=== PATIENT | male | born 1940 | race African-American/Black ===

== ENCOUNTER 2021-03-04 21:19 | Emergency (ER) | payer MEDICARE, MEDICAID, SELFPAY ==
[2021-03-04 21:39] LABS: Glucose, Whole Blood 125 mg/dL (60-115)
[2021-03-04 21:43] VITALS: BP 130/82; BP 136/62; PULSE 76; PULSE 84; RESP 18; TEMP 37.1; O2SAT 99; BMI 18.3
[2021-03-04 21:47] VITALS: BP 136/62; PULSE 76; RESP 18; TEMP 37.1; O2SAT 99
--- NOTE | 2021-03-04 22:01 | ED.GENADULT ---
HPI - General Adult General Chief complaint: General Medical Stated complaint: AMS Time Seen by Provider: 03/04/21 21:54 Source: family History of Present Illness HPI narrative: Patient brought by [facility] for wandering on the street without a shirt on never called EMS stating that patient had Alzheimer's disease and 's leave him alone a lot after arrival patient's son is here to take the patient home no other active complaints Review of Systems Review of Systems: Yes Unobtainable due to mental status PMFSH Social History Social History Advance Directives: No Advance Directives Information Provided: No Physical Exam Vital Signs: Vital Signs: Last Vital Signs Temp 98.8 F 03/04/21 21:47 Pulse 76 03/04/21 21:47 Resp 18 03/04/21 21:47 BP 136/62 03/04/21 21:47 Pulse Ox 99 03/04/21 21:47 Body Mass Index 18.3 Appearance: Alert. Oriented X1. No acute distress. Dementia Eyes: PERRLA, No Nystagmus ENT: Pharynx normal. Oral Mucosa moist Neck: Normal inspection. Neck supple. CVS: Normal heart rate and rhythm. Pulses normal. Respiratory: No respiratory distress. Equal air entry bilateral, no wheezing/rales/rhonchi Abdomen: Soft and nontender. Bowel sounds are present, no mass palpable, no CVA tenderness Skin: Skin warm and dry. Normal skin color. Normal skin turgor. Extremities: No lower extremity edema. No calf tenderness Neuro: Oriented X 1. No motor deficit. No sensory deficit.No cerebellar signs , cranial nerves II-XII intact Medical Decision Making MDM Narrative Medical decision making narrative: Patient has significant dementia family at bedside to take the patient home Lab Data Labs: Lab Results 03/04/21 Range/Units 21:35 POC Glucose 125 H (60-115) mg/dL Discharge Plan Discharge Clinical Impression: Dementia Qualifiers: Dementia type: Alzheimer's Alzheimer's disease onset: late-onset Dementia behavioral disturbance: with behavioral disturbance Qualified Code(s): G30.1 - Alzheimer's disease with late onset Patient Disposition: Home, Self-Care Instructions: Dementia (ED) Additional Instructions: Keep patient inside the house to avoid wandering Follow-up with your PCP if any concerns Interventions: ED Discharge Assessment Last Done: 03/04/21 22:02 Discharge Date/Time: 03/04/21 22:07
--- NOTE | 2021-03-04 22:01 | PC.NURSE ---
Pt alert and confused, hx of Alzeheimer's. Family at bedside and stating this is his baseline mental status. Pt denies pain. No IV in place, Vitals stable. Pt to be discharged home with family.
== END 2021-03-04 22:07 | disposition home or self-care (01) ==
LOC: HO.ED 22:06
PROVIDERS: Emergency Provider Internal Medicine
DX: G30.1 Alzheimer's disease with late onset (principal); Z79.899 Other long term (current) drug therapy
CPT/HCPCS: 82947; 99282; 99284

== ENCOUNTER 2023-02-05 10:21 | Emergency (ER) | payer MEDICARE, MEDICAID, SELFPAY ==
--- NOTE | ~2023-02-05 | CT_ITS ---
EXAMINATION: CT HEAD WITHOUT CONTRAST CT CERVICAL SPINE WITHOUT CONTRAST CLINICAL INFORMATION: Unwitnessed fall. COMPARISON: None available. TECHNIQUE: Contiguous axial imaging was performed from the skull base to vertex without intravenous administration of contrast. Contiguous axial imaging was performed from the upper chest through the skull base without intravenous administration of contrast. Coronal and sagittal reformats were obtained at the acquisition workstation. This CT examination was performed using dose optimization techniques as appropriate, variously including the following: *Automated exposure control. *Adjustment of mA and/or kV according to patient size (this includes techniques or standardized protocols for targeted exams where dose is matched to indication/reason for exam; i.e. extremities or head). *Use of iterative reconstruction technique. DLP: 908 mGy-cm FINDINGS: Head: There is no evidence of acute intracranial hemorrhage or edematous territorial infarction. Britt-white matter differentiation is preserved. Scattered and partially confluent hypoattenuation in the periventricular and deep white matter are consistent with moderate microangiopathy. Proportional prominence of the ventricles and sulcal spaces without evidence of obstructive hydrocephalus. No abnormal mass effect or midline shift. No extra-axial fluid collections. No acute soft tissue or osseous abnormalities. Moderate polypoid mucosal thickening of the paranasal sinuses. The mastoid air cells and middle ear cavities are clear. Bilateral lens extractions. Cervical Spine: The atlantooccipital and atlantoaxial articulations remain well aligned. Straightening of the normal cervical lordosis. Otherwise, there is anatomic alignment of the vertebral bodies and posterior elements. No evidence of acute fracture or subluxation. The vertebral body heights are maintained. Advanced degenerative disc disease from C2-C4 and at C5-C6. Moderate degenerative disc disease at all additional cervical levels. Facet and uncovertebral joint arthropathy leads to osseous encroachment on the neural foramina from C3-C6. There is no prevertebral soft tissue swelling. The thyroid gland and remaining cervical soft tissues are within normal limits. Calcified pleural plaques in the visualized lung apices as abc and with prior specimens exposure. Mild paraseptal emphysema in the visualized lung apices. Otherwise, the lung apices demonstrate no abnormalities. CT/CT cervical spine wo IV con IMPRESSION: 1. No evidence of acute intracranial hemorrhage or edematous territorial infarction. 2. Moderate underlying microangiopathy and generalized cerebral volume loss. 3. No evidence of acute fracture or traumatic subluxation of the cervical spine. 4. Moderate multilevel degenerative spondyloarthropathy of the cervical spine.
[2023-02-05 10:27] VITALS: BP 112/68; PULSE 80; O2SAT 98
[2023-02-05 10:36] VITALS: BP 110/65; PULSE 58; RESP 19; TEMP 37.1; O2SAT 98; BMI 18.8
--- NOTE | 2023-02-05 10:42 | ECG_ITS ---
Test Reason : weakness Blood Pressure : / mmHG Vent. Rate : 061 BPM Atrial Rate : 000 BPM P-R Int : 000 ms QRS Dur : 102 ms QT Int : 456 ms P-R-T Axes : 000 -33 045 degrees QTc Int : 459 ms Atrial fibrillation with premature ventricular or aberrantly conducted complexes Left axis deviation Low voltage QRS Abnormal ECG No previous ECGs available Referred By: Monik Lyons Electronically Signed By:BOUBACAR WHITE
[2023-02-05 11:48] LABS: MANUAL DIFF FLAG NO
[2023-02-05 11:50] LABS: Appearance Urine Clear; Color Urine Dark Yellow; Glucose Urine UA Negative (Negative); Leukocyte Esterase Urine Negative (Negative); Nitrite Urine Negative (Negative); PH 5.5 (5.0-9.0); Specific Gravity - Urine 1.025 (1.005-1.025); Urine Blood Negative (Negative); Urine Ketones Negative (Negative); Urine Protein Negative (Neg-Trace)
[2023-02-05 11:55] LABS: Basophils Absolute Auto 0.1 X10*3/uL (0.0-0.2); Basophils Percent Auto 0.8 % (0-2); Eosinophils Absolute Auto 0.9 X10*3/uL (0.0-0.4); Eosinophils Percent Auto 15.6 % (0-4); Hematocrit 40.1 % (42.0-52.0); Hemoglobin 13.7 g/dl (14.0-18.0); Imm Gran Abs Auto 0.02 X10*3/uL (0.00-0.03); Imm Gran Pct Auto 0.3 % (0.0-0.4); Lymphocytes Percent Auto 17.4 % (20-40); Mean Corpuscular HGB Conc 34.2 g/dl (31.0-36.0); Mean Corpuscular Hemoglobin 30.6 pg (27.0-33.0); Mean Corpuscular Volume 89.5 fL (80.0-98.0); Mean Platelet Volume 10.9 fL (9.4-12.4); Monocytes Absolute Auto 0.3 X10*3/uL (0.1-1.2); Monocytes Percent Auto 4.7 % (2-11); Neutrophils Absolute Auto 3.6 x10*3/uL (2.0-8.3); Neutrophils Percent Auto 61.2 % (45-73); Platelet Count 119 X10*3/uL (160-400); Red Blood Count 4.48 X10*6/uL (4.60-5.80)
[2023-02-05 12:04] LABS: Alanine Aminotransferase 9 U/L (0-40); Albumin Level 3.6 g/dL (3.5-5.0); Alkaline Phosphatase 67 U/L (39-117); Anion Gap 8 (12-20); Aspartate Amino Transferase 19 U/L (5-37); Bilirubin Direct 0.3 mg/dL (0.0-0.5); Bilirubin Total 0.8 mg/dL (0.0-1.0); Blood Urea Nitrogen 22 mg/dL (9-16); Calcium 9.3 mg/dL (8.4-10.2); Carbon Dioxide 29 mmol/L (22-29); Chloride 110 mmol/L (96-108); Creatinine Clr Calc Pharmacy 60.9; Estimated Glomerular Filt Rate > 60; Glucose Random 86 mg/dL (60-115); Magnesium 1.9 mg/dL (1.6-2.6); Potassium 3.9 mmol/L (3.3-5.1); Sodium 143 mmol/L (135-145); Total Protein 6.3 g/dL (6.5-8.0)
[2023-02-05 12:08] VITALS: BP 107/51; PULSE 52; RESP 16; TEMP 36.5; O2SAT 97
[2023-02-05 12:11] LABS: Troponin-I High Sensitivity 13.3 ng/L (<3.5-35.0)
[2023-02-05] MEDS: Acetaminophen 325 MG TABLET 650 MG PO (12:26)
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
[2023-02-05 14:35] VITALS: BP 108/61; PULSE 60; RESP 18; O2SAT 95
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
== END 2023-02-05 15:17 | disposition home or self-care (01) ==
PROVIDERS: Physician Assistant; Emergency Provider Emergency Medicine
DX: S41.112A Laceration without foreign body of left upper arm, initial encounter (principal); W22.03XA Walked into furniture, initial encounter; Y93.89 Activity, other specified; Y92.032 Bedroom in apartment as the place of occurrence of the external cause; Y99.9 Unspecified external cause status; F03.90 Unspecified dementia, unspecified severity, without behavioral disturbance, psychotic disturbance, mood disturbance, and anxiety; Z79.01 Long term (current) use of anticoagulants
CPT/HCPCS: 36415; 70450; 72125; 80048; 80076; 81003; 82550; 83735; 84484; 85025; 93005; 99284

== ENCOUNTER 2023-08-19 23:30 | Emergency (ER) | payer MEDICARE, MEDICAID, SELFPAY ==
--- NOTE | ~2023-08-19 | CT_ITS ---
EXAMINATION: CT HEAD WITHOUT CONTRAST CT CERVICAL SPINE WITHOUT CONTRAST CLINICAL INFORMATION: Fall. Pain. COMPARISON: 02/05/2023 TECHNIQUE: Contiguous axial imaging was performed through the head and cervical spine without intravenous administration of contrast. Sagittal and coronal reformatted images also obtained. This CT examination was performed using dose optimization techniques as appropriate, variously including the following: *Automated exposure control *Adjustment of mA and/or kV according to patient size (this includes techniques or standardized protocols for targeted exams where dose is matched to indication/reason for exam; i.e. extremities or head) *Use of iterative reconstruction technique DLP: 1221 mGy-cm FINDINGS: There is cerebral volume loss with prominence of the lateral and the third ventricles. The cortical sulci are widened appropriately. The fourth ventricle and basal cisterns are normally outlined. There is moderate bilateral periventricular and central white matter diminished attenuation. There is no acute territorial defect, hemorrhage or midline shift. Calvarium: Intact. Maxillofacial sinuses and mastoids: There are bilateral maxillary and ethmoid sinus opacities. The mastoids are clear. Cervical spine: The alignment is within normal limits. There is diffuse wcbk-is-lqzrytub cervical disc degenerative change with loss of disc space, endplate change and posterior osteophytes associated with diffuse mild to moderate facet osteoarthritic hypertrophic change with multilevel gijc-bx-rvdrjadf spinal canal and neuroforaminal narrowing. The bony structures are osteopenic. There is no evidence for acute fracture. Soft tissues are unremarkable. The visualized upper lung juarez are clear. CT/CT cervical spine wo IV con IMPRESSION: 1. No evidence for acute intracranial abnormality. Moderate bilateral periventricular and central white matter diminished attenuation consistent with chronic microangiopathic changes. 2. Bilateral maxillary and ethmoid sinus disease. 3. No evidence for acute cervical spine traumatic injury. Diffuse hxcz-fe-hemaannl cervical spondylosis and facet osteoarthritic changes.
--- NOTE | ~2023-08-19 | CT_ITS ---
EXAMINATION: CT HEAD WITHOUT CONTRAST CT CERVICAL SPINE WITHOUT CONTRAST CLINICAL INFORMATION: Fall. Pain. COMPARISON: 02/05/2023 TECHNIQUE: Contiguous axial imaging was performed through the head and cervical spine without intravenous administration of contrast. Sagittal and coronal reformatted images also obtained. This CT examination was performed using dose optimization techniques as appropriate, variously including the following: *Automated exposure control *Adjustment of mA and/or kV according to patient size (this includes techniques or standardized protocols for targeted exams where dose is matched to indication/reason for exam; i.e. extremities or head) *Use of iterative reconstruction technique DLP: 1221 mGy-cm FINDINGS: There is cerebral volume loss with prominence of the lateral and the third ventricles. The cortical sulci are widened appropriately. The fourth ventricle and basal cisterns are normally outlined. There is moderate bilateral periventricular and central white matter diminished attenuation. There is no acute territorial defect, hemorrhage or midline shift. Calvarium: Intact. Maxillofacial sinuses and mastoids: There are bilateral maxillary and ethmoid sinus opacities. The mastoids are clear. Cervical spine: The alignment is within normal limits. There is diffuse xckq-eb-tnqstgxk cervical disc degenerative change with loss of disc space, endplate change and posterior osteophytes associated with diffuse mild to moderate facet osteoarthritic hypertrophic change with multilevel qheb-bd-kpexbotw spinal canal and neuroforaminal narrowing. The bony structures are osteopenic. There is no evidence for acute fracture. Soft tissues are unremarkable. The visualized upper lung juarez are clear. CT/CT head/brain wo IV con IMPRESSION: 1. No evidence for acute intracranial abnormality. Moderate bilateral periventricular and central white matter diminished attenuation consistent with chronic microangiopathic changes. 2. Bilateral maxillary and ethmoid sinus disease. 3. No evidence for acute cervical spine traumatic injury. Diffuse pdfe-qs-sxhdpicd cervical spondylosis and facet osteoarthritic changes.
[2023-08-20 00:02] VITALS: BP 128/73; PULSE 78; RESP 18; TEMP 36.7; O2SAT 97
[2023-08-20 00:16] VITALS: BP 153/59; PULSE 90; O2SAT 97; BMI 21.6
--- NOTE | 2023-08-20 00:38 | ED_ITS ---
HPI - Fall General Chief Complaint: Fall Stated Complaint: fall Time Seen by Provider: 08/20/23 00:38 Source: family and EMS Mode of arrival: EMS Limitations: no limitations History of Present Illness HPI Narrative: Patient history of AFib on Eliquis dementia with unsteady gait patient's just left the room for the coffee and when she came found him on the ground with face down patient was sitting on the bed found laceration on the top of the head Related Data Allergies Allergy/AdvReac Type Severity Reaction Status Date / Time No Known Allergies Allergy Verified 08/20/23 00:16 Review of Systems 2 Review of Systems: Yes all other systems are reviewed and are negative [facility] Past Medical History Medical History Anticoagulated Dementia Social History Social History Alcohol intake: former Patient Tobacco Use Status: Tobacco use Unknown Smoked in Last 30 Days: No Use of substances other than those prescribed or required for medical reasons: No Advance Directives: No Advance Directives Information Provided: Yes Physical Exam 2 Vital Signs: Vital Signs: Last Vital Signs Temp 98.0 F 08/20/23 00:02 Pulse 78 08/20/23 00:02 Resp 18 08/20/23 00:02 BP 128/73 08/20/23 00:02 Pulse Ox 97 08/20/23 00:02 O2 Del Method Room Air 08/20/23 00:02 BMI result Body Mass Index 21.6 Appearance: Alert. Demand No acute distress. Eyes: PERRLA, No Nystagmus ENT: Pharynx normal. Oral Mucosa moist elliptical laceration on the top of the skull Neck: Normal inspection. Neck supple. CVS: Normal heart rate and rhythm. Pulses normal. Respiratory: No respiratory distress. Equal air entry bilateral, no wheezing/rales/rhonchi Abdomen: Soft and nontender. Bowel sounds are present, no mass palpable, no CVA tenderness Skin: Skin warm and dry. Normal skin color. Normal skin turgor. Extremities: No lower extremity edema. Neuro: Alert dementia moving all 4 extremities. Procedures Laceration Laceration 1: Site: scalp Size (cm): 10 Description: linear Depth: simple, single layer Skin layer closed with: other (Hardy #10 ) Medical Decision Making Medical Decision Making [facility] Narrative: Patient has both mechanical fall labs are stable CT head and C-spine negative for acute laceration was stapled will discharge patient back to his house Differential Diagnosis Differential Diagnoses: The differential diagnosis associated with the presentation includes Scalp laceration/skull fracture/subdural hematoma/SAH Lab Data [facility] Lab Attestation statement: I reviewed the patient's lab results. 08/20/23 01:01 08/20/23 01:01 Labs: Lab Results 08/20/23 Range/Units 01:01 WBC 7.6 (4.8-10.8) X10*3/uL RBC 4.43 L (4.60-5.80) X10*6/uL Hgb 13.4 L (14.0-18.0) g/dl Hct 39.0 L (42.0-52.0) % MCV 88.0 (80.0-98.0) fL MCH 30.2 (27.0-33.0) pg MCHC 34.4 (31.0-36.0) g/dl RDW 13.5 (11.0-16.0) % Plt Count 166 D (160-400) X10*3/uL MPV 10.6 (9.4-12.4) fL Immature Gran % (Auto) 3.0 H (0.0-0.4) % Neut % (Auto) 76.1 H (45-73) % Lymph % (Auto) 9.6 L (20-40) % [place] % (Auto) 3.7 (2-11) % Eos % (Auto) 7.1 H (0-4) % Baso % (Auto) 0.5 (0-2) % Lymph # (Auto) 0.7 L (1.2-4.9) X10*3/uL [place] # (Auto) 0.3 (0.1-1.2) X10*3/uL Eos # (Auto) 0.5 H (0.0-0.4) X10*3/uL Baso # (Auto) 0.0 (0.0-0.2) X10*3/uL Abs Immat Gran (auto) 0.23 H (0.00-0.03) X10*3/uL Absolute Neuts (auto) 5.8 (2.0-8.3) x10*3/uL Absolute Nucleated RBC 0.000 (0.0-0.012) X10*3/uL Nucleated RBC % (auto) 0.0 (0.0-0.2) /100WBC PT 12.0 (11.1-13.3) SEC INR 1.0 (0.9-1.1) Sodium 142 (135-145) mmol/L Potassium 4.2 (3.3-5.1) mmol/L Chloride 107 (96-108) mmol/L Carbon Dioxide 27 (22-29) mmol/L Anion Gap 12 (12-20) BUN 22 H (9-16) mg/dL Creatinine 0.70 (0.5-1.4) mg/dL Estim Creat Clear Calc 67.8 Estimated GFR > 60 Random Glucose 106 (60-115) mg/dL Calcium 9.2 (8.4-10.2) mg/dL Total Bilirubin 0.6 (0.0-1.0) mg/dL AST 23 (5-37) U/L ALT 19 (0-40) U/L Alkaline Phosphatase 100 (39-117) U/L Total Protein 7.1 (6.5-8.0) g/dL Albumin 3.5 (3.5-5.0) g/dL Independent Interpretation I performed an independent interpretation of an: EKG and CT Scan Interpretation: Atrial fibrillation ventricular rate 78 beats per minute no acute ST-T changes no acute ischemia Radiology Impression Discussion of test interpretation with radiology: I have reviewed the radiologist's reading. Discharge Plan Discharge Clinical Impression: Laceration of scalp, Fall Patient Disposition: Home, Self-Care Instructions: Laceration (DC), Fall Prevention for Older Adults (ED) Additional Instructions: Local care as advised Staple removal in 7-10 days
--- NOTE | 2023-08-20 00:45 | ECG_ITS ---
Test Reason : FALL Blood Pressure : / mmHG Vent. Rate : 078 BPM Atrial Rate : 000 BPM P-R Int : 000 ms QRS Dur : 096 ms QT Int : 406 ms P-R-T Axes : 000 -53 036 degrees QTc Int : 462 ms Artifact in tracing Atrial fibrillation Low voltage QRS Abnormal ECG When compared with ECG of 05-FEB-2023 10:47, No significant change was found Referred By: Bj Tucker Electronically Signed By:INGRID MCCABE
[2023-08-20 01:05] LABS: Basophils Percent Auto 0.5 % (0-2); Eosinophils Absolute Auto 0.5 X10*3/uL (0.0-0.4); Eosinophils Percent Auto 7.1 % (0-4); Hemoglobin 13.4 g/dl (14.0-18.0); Imm Gran Abs Auto 0.23 X10*3/uL (0.00-0.03); Lymphocytes Absolute Auto 0.7 X10*3/uL (1.2-4.9); Lymphocytes Percent Auto 9.6 % (20-40); MANUAL DIFF FLAG NO; Mean Corpuscular HGB Conc 34.4 g/dl (31.0-36.0); Mean Corpuscular Hemoglobin 30.2 pg (27.0-33.0); Mean Platelet Volume 10.6 fL (9.4-12.4); Monocytes Absolute Auto 0.3 X10*3/uL (0.1-1.2); Monocytes Percent Auto 3.7 % (2-11); Neutrophils Absolute Auto 5.8 x10*3/uL (2.0-8.3); Neutrophils Percent Auto 76.1 % (45-73); Platelet Count 166 X10*3/uL (160-400); Red Blood Count 4.43 X10*6/uL (4.60-5.80); Red Cell Distribution Width 13.5 % (11.0-16.0); White Blood Count 7.6 X10*3/uL (4.8-10.8)
[2023-08-20 01:28] LABS: Alanine Aminotransferase 19 U/L (0-40); Albumin Level 3.5 g/dL (3.5-5.0); Alkaline Phosphatase 100 U/L (39-117); Anion Gap 12 (12-20); Aspartate Amino Transferase 23 U/L (5-37); Bilirubin Total 0.6 mg/dL (0.0-1.0); Blood Urea Nitrogen 22 mg/dL (9-16); Calcium 9.2 mg/dL (8.4-10.2); Carbon Dioxide 27 mmol/L (22-29); Chloride 107 mmol/L (96-108); Creatinine Clr Calc Pharmacy 67.8; Estimated Glomerular Filt Rate > 60; Glucose Random 106 mg/dL (60-115); Potassium 4.2 mmol/L (3.3-5.1); Sodium 142 mmol/L (135-145); Total Protein 7.1 g/dL (6.5-8.0)
[2023-08-20 02:30] VITALS: BP 131/82; PULSE 80; RESP 16; TEMP 36.7
== END 2023-08-20 02:35 | disposition home or self-care (01) ==
PROVIDERS: Emergency Provider Internal Medicine
DX: S01.01XA Laceration without foreign body of scalp, initial encounter (principal); I48.91 Unspecified atrial fibrillation; F03.90 Unspecified dementia, unspecified severity, without behavioral disturbance, psychotic disturbance, mood disturbance, and anxiety; Z79.01 Long term (current) use of anticoagulants; W19.XXXA Unspecified fall, initial encounter; Y93.9 Activity, unspecified; Y92.9 Unspecified place or not applicable; Y99.9 Unspecified external cause status
CPT/HCPCS: 12004; 36415; 70450; 72125; 80053; 85025; 85610; 93005; 99284

== ENCOUNTER → 2023-08-20 00:45 | Outpatient (BNV) | payer MEDICARE, MEDICAID, SELFPAY | PROVIDERS: Emergency Provider Internal Medicine; Visit Provider Internal Medicine | DX: R07.9 Chest pain, unspecified (principal) | CPT/HCPCS: 93010 ==

== ENCOUNTER 2023-08-27 14:12 | Emergency (ER) | payer MEDICARE, MEDICAID, SELFPAY ==
[2023-08-27 14:50] VITALS: BP 129/64; PULSE 78; RESP 16; TEMP 36.6; O2SAT 97
--- NOTE | 2023-08-27 14:55 | ED.WOUNDLAC ---
HPI - Wound/Laceration General Chief Complaint: Wound/Laceration Stated Complaint: staple removal Time Seen by Provider: 08/27/23 14:55 Source: patient Mode of arrival: ambulatory Limitations: no limitations History of Present Illness HPI narrative: Patient is an 82-year-old male presents emergency department with his to have hardy removed from his head that were placed last . Reports no concerns regarding healing. No drainage. No headaches. Mental status changes. Otherwise has been well. Related Data Allergies Allergy/AdvReac Type Severity Reaction Status Date / Time No Known Allergies Allergy Verified 08/20/23 00:16 Review of Systems Review of Systems: Yes all other systems are reviewed and are negative PMFSH Past Medical History Attestation statement: The following information was validated with the patient. Source: old records reviewed Medical History Anticoagulated Dementia Social History Social History Alcohol intake: former Patient Tobacco Use Status: Tobacco use Unknown Physical Exam Vital Signs: Vital Signs: Last Vital Signs Temp 97.9 F 08/27/23 14:50 Pulse 78 08/27/23 14:50 Resp 16 08/27/23 14:50 BP 129/64 08/27/23 14:50 Pulse Ox 97 08/27/23 14:50 O2 Del Method Room Air 08/27/23 14:50 BMI result Body Mass Index 0.0 Appearance: Alert.?Oriented to person, place and time. No acute distress.?Normal affect. Head: Healed laceration to the top of the skull, 10 hardy intact Neck: Normal inspection.? Neck supple.?? CVS: Heart sounds normal. Normal heart rate and rhythm.? Pulses normal.?? Respiratory: No respiratory distress.? Lung sounds clear to auscultation bilaterally?? Skin: Skin warm and dry.? Normal skin color.? Extremities: No lower extremity edema.? Neuro: Moves all extremities spontaneously. Sensation intact bilaterally. No focal neuro deficits. Ambulates with normal steady gait. Medical Decision Making Medical Decision Making MDM Narrative: Patient is an 82-year-old male presents emergency department for suture removal after a recent head injury where he sustained laceration and 10 hardy were placed to the scalp on 08/20/2023 in this emergency department. Laceration is well healing, scabbed over, free from signs of infection. Hardy were removed without complication. Stable for discharge home with family. Differential Diagnosis Differential Diagnoses: The differential diagnosis associated with the presentation includes (healing laceration, not consistent with delayed wound healing or infection.) Independent Historian Clinical information obtained from an independent historian. History obtained from or confirmed by: Spouse (Present who provides history) Prescription Management I considered prescription management with: Pain Medication (Tylenol/ibuprofen) Discharge Plan Discharge Clinical Impression: Laceration Patient Disposition: Home, Self-Care Additional Instructions: Ten hardy were removed from the laceration to his scalp today. Appears to be healing well. Follow-up with primary care provider as needed. Referrals: PhysicianMarina J [Primary Care Provider] -
[2023-08-27 14:59] VITALS: BP 127/70; PULSE 76; RESP 18; TEMP 36.6; O2SAT 98
== END 2023-08-27 15:01 | disposition home or self-care (01) ==
LOC: HO.ED 15:00
PROVIDERS: Emergency Provider Student in an Organized Health Care Education/Training Program
DX: Z48.02 Encounter for removal of sutures (principal)
CPT/HCPCS: 99282

== ENCOUNTER 2024-01-21 13:40 | Inpatient (IN) | payer MEDICARE, SELFPAY ==
[2024-01-21] VITALS (7 sets, daily range): BP systolic 109–118; BP diastolic 50–76; PULSE 82–89; RESP 14–19; TEMP 36.6–37.4; O2SAT 92–96; BMI 17.6
--- NOTE | ~2024-01-21 | XR_ITS ---
EXAMINATION: XR KNEE, LEFT CLINICAL INFORMATION: Left knee pain. COMPARISON: None available. TECHNIQUE: AP and lateral views of the left knee. FINDINGS: There is no fracture, dislocation, or suspicious focal bone abnormality. There is a small suprapatellar joint effusion. Extensive chondrocalcinosis noted in the medial and lateral compartments suggesting underlying CPPD. Kkaq-uv-vsikeuls joint space narrowing in the medial and lateral compartments, with severe joint space narrowing in the patellofemoral joint. Small marginal osteophytic spurs are present. Alignment is normal. Soft tissues demonstrate vascular calcifications but are otherwise normal. XR/XR knee LT 2V IMPRESSION: 1. No acute bony abnormalities identified left knee. 2. Small joint effusion. 3. 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 4. Vascular calcifications Electronically signed by: Ramos Pitts MD 01/21/2024 03:21 PM EDT
--- NOTE | ~2024-01-21 | XR_ITS ---
EXAMINATION: XR CHEST CLINICAL INFORMATION: Cough, weakness. COMPARISON: No prior. TECHNIQUE: AP view of the chest was obtained. FINDINGS: Lungs demonstrate hyperaeration and emphysema. There is increased bilateral bronchovascular markings somewhat diffusely, which are mildly hazy, suggesting possible volume overload. There is abnormal consolidative opacity in the left upper lung distribution. Cannot exclude pneumonia. Calcified granuloma present in the peripheral right midlung. Obscuration of left hemidiaphragm is present with a small effusion present. No right effusion is evident. Cardiac silhouette is prominent but likely magnified by technique. Aorta is calcified but normal in contour. Mediastinal contours are normal. No hilar masses appreciated. Mildly prominent hilar vessels. Osseous structures demonstrate a gentle dextroconvex spinal scoliosis. There are associated degenerative changes throughout the spine and imaged right shoulder joint. XR/XR chest 1V IMPRESSION: 1. Findings suggestive of left upper lung pneumonia. 2. Hazy interstitial prominence suggesting mild fluid overload/CHF. 3. Left effusion suspected. Electronically signed by: Ramos Pitts MD 01/21/2024 03:32 PM EDT
--- NOTE | ~2024-01-21 | FL_ITS ---
EXAMINATION: FLUOROSCOPY GUIDANCE FOR NEEDLE PLACEMENT CLINICAL INFORMATION: IM nailing, right. COMPARISON: Pelvis and right hip 01/21/2024 TECHNIQUE: Fluoroscopy and spot films were provided to Dr. Will Elise in the operating room. FINDINGS: Imaging demonstrates presence of an intramedullary femoral rosa and screw through the femoral neck. An intertrochanteric fracture is present. FLUOROSCOPY TIME: 0.7 minutes DOSE AREA PRODUCT: 0.180 uGy-m2 (microgray-meter squared) FL/FL guidance in OR IMPRESSION: Fluoroscopy and spot films provided during intramedullary femoral rosa and screw placement. Electronically signed by: Devan Shoemaker MD 01/26/2024 07:45 PM EDT
--- NOTE | ~2024-01-21 | XR_ITS ---
EXAMINATION: XR ABDOMEN KUB CLINICAL INDICATION: Constipation, possible fall, limping COMPARISON: None available. TECHNIQUE: AP view of the abdomen. FINDINGS: Of note, there is an abnormal appearance and location to the right greater trochanter, which has an unusual appearance and may represent a displaced right hip or intertrochanteric fracture, incompletely imaged. A lytic process is suspected involving the right greater trochanter and intertrochanteric region, suggestive of a destructive bony lesion and overlying pathologic fracture. Bony structures otherwise appear intact. Arthritic changes seen throughout the spine and SI joints, as well as the left hip joint. Moderate fecal material is seen throughout the colon and rectum suggestive of moderate constipation. No abnormally dilated loops of bowel or colon. There are vascular calcifications. No indirect evidence of free air. XR/XR KUB IMPRESSION: 1. Moderate constipation, otherwise nonspecific bowel gas pattern. No obstruction. 2. Abnormal appearance of the right ureter trochanter, also abnormal in location as discussed above. Recommend dedicated right hip films. Suspect a fracture with a possible underlying lytic process affecting the right greater trochanter and intertrochanteric region. 3. Vascular calcifications. Findings discussed with Cinthya Cisneros at 3:40 PM, 01/21/2024 Electronically signed by: Ramos Pitts MD 01/21/2024 03:42 PM EDT
--- NOTE | ~2024-01-21 | XR_ITS ---
EXAMINATION: XR KNEE, RIGHT CLINICAL INFORMATION: Possible fall, knee pain, limping. COMPARISON: None available. TECHNIQUE: AP and lateral views of the right knee. FINDINGS: There is no fracture, dislocation, or suspicious focal bony abnormality. There is a small suprapatellar joint effusion. Extensive chondrocalcinosis present in the medial lateral compartments suggesting underlying CPPD. Moderate to severe medial and lateral joint space narrowing, with severe narrowing in the patellofemoral joint. Small marginal osteophytic spurs are present. Alignment is normal. Patella appears laterally situated although this is likely projectional on the AP. Soft tissues demonstrate vascular calcifications but are otherwise normal. XR/XR knee RT 2V IMPRESSION: 1. No acute bony abnormalities identified right knee. 2. Small joint effusion. 3. 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 4. Vascular calcifications. Electronically signed by: Ramos Pitts MD 01/21/2024 03:26 PM EDT
--- NOTE | ~2024-01-21 | XR_ITS ---
EXAMINATION: XR HIP, RIGHT CLINICAL INFORMATION: Right trochanteric fracture COMPARISON: None available. TECHNIQUE: Two views of the right hip, frontal x-ray of pelvis. FINDINGS: BONES: Right femoral intertrochanteric fracture is seen with mild proximal retraction. JOINTS: Alignment of hip joint is normal. SOFT TISSUE: Soft tissue is normal. No radiopaque foreign body or abnormal air collection is seen. XR/XR hip RT w PEL1V IMPRESSION: Right femoral intertrochanteric fracture with mild proximal retraction. Electronically signed by: Sarai Farias MD 01/21/2024 05:03 PM EDT
--- NOTE | ~2024-01-21 | CT_ITS ---
EXAMINATION: CT HEAD WITHOUT CONTRAST CLINICAL INFORMATION: Fall COMPARISON: CT head on 02/05/2023 TECHNIQUE: Contiguous axial imaging was performed from the skull base to vertex without intravenous administration of contrast. This CT examination was performed using dose optimization techniques as appropriate, variously including the following: *Automated exposure control *Adjustment of mA and/or kV according to patient size (this includes techniques or standardized protocols for targeted exams where dose is matched to indication/reason for exam; i.e. extremities or head) *Use of iterative reconstruction technique DLP: 654.85 mGy-cm FINDINGS: No acute intracranial hemorrhage or infarct. The dang-white matter differentiation is preserved. Patchy hypodensity involving the periventricular deep white matter compatible with small vessel ischemic disease. Diffuse widening of the sulci with associated extraconal dilation of the ventricles compatible with global cerebral atrophy. No midline shift or hydrocephalus. No acute extra-axial fluid collections. The osseous structures are unremarkable. Sequelae of bilateral lens replacement. No acute orbital pathology. Mild to moderate mucosal thickening of the paranasal sinuses. The mastoid air cells are clear. Atherosclerotic calcifications of the bilateral carotid siphons. CT/CT head/brain wo IV con IMPRESSION: 1. No acute intracranial hemorrhage or territorial infarction. 2. Global cerebral atrophy and chronic microangiopathy. Electronically signed by: Gunnar Ma MD 01/21/2024 09:40 PM EDT
--- NOTE | 2024-01-21 14:14 | ED.GENADULT ---
HPI - General Adult General Chief complaint: General Medical Stated complaint: L KNEE PAIN Time Seen by Provider: 01/21/24 13:49 Source: family and EMS Mode of arrival: EMS Limitations: other History of Present Illness ED Provider: Dr. Cinthya Cisneros HPI narrative: Patient comes to the emergency room via ambulance. Patient's family at bedside. According to the patient's family, 4 months, the patient has been gradually declining. Patient's seems to be weaker. However, they state that he has very good appetite. Patient's seems to be uncomfortable due to constipation, patient has not passed any stool for over 4 days. Patient lives at home with his daughter. Patient is unable to give much history or make his needs medical condition. The family is concerned that the patient is losing weight Related Data Allergies Allergy/AdvReac Type Severity Reaction Status Date / Time No Known Allergies Allergy Verified 01/21/24 13:50 Review of Systems Review of Systems: Yes Unobtainable due to mental condition PMFSH Past Medical History Medical History Anticoagulated Dementia Social History Social History Alcohol intake: former Patient Tobacco Use Status: Tobacco use Unknown Smoked in Last 30 Days: No Use of substances other than those prescribed or required for medical reasons: No Advance Directives: No Advance Directives Information Provided: Yes Do you have a plan to hurt others: No Plan Physical Exam ED Vital Signs: Vital Signs - 24 hr 01/21/24 17:03 Temperature 97.9 F Pulse Rate 89 Respiratory Rate 19 Blood Pressure 109/55 L Pulse Oximetry 92 Oxygen Delivery Method Nasal Cannula Oxygen Flow Rate 2 BMI result Body Mass Index 17.6 Const Other: Appearance: Alert. Does not seem in any acute distress, patient answers yes to everything Eyes: Pupils equal, round and reactive to light. ENT: Pharynx normal. Neck: Normal inspection. Neck supple. No lymph nodes noted. No crepitus CVS: Normal heart rate and rhythm. Pulses normal. Normal S1 and S2 Respiratory: No respiratory distress. Breath sounds normal. No Wheezing. No rales Abdomen: Soft and nontender. No rigidity. No distention. Skin: Skin warm and dry. Normal skin color. Normal skin turgor. Extremities: No lower extremity edema. No Lacerations. No Rash Neuro: Moving all extremities. No slurred speech. CN 2 through 12 grossly intact Psych: calm Course Course Course Narrative: - of patient's labs and imaging pending. Medications Administered Discontinued Medications Generic Name Dose Route Start Last Admin Trade Name Ny PRN Reason Stop Dose Admin Sodium Chloride 1,000 mls @ 999 mls/hr 01/21/24 16:44 01/21/24 17:56 Ns IVCONT 01/21/24 17:44 999 mls/hr .Q1H1M ONE Administration Ceftriaxone Sodium 1 gm/ 50 mls @ 100 mls/hr 01/21/24 16:44 01/21/24 17:56 Sodium Chloride IV 01/21/24 17:13 100 mls/hr ONCE ONE Administration Medical Decision Making Medical Decision Making [facility] Narrative: -it was noted that patient has been coughing chest x-ray: Pneumonia. Patient had already received prophylactically a L of normal saline and ceftriaxone, patient was given also azithromycin to complete treatment for pneumonia. - I discussed the x-ray findings with our radiologist. The KUB does not show a significant amount of stool, he does have moderate amount of can seek patient. However, them is a potential fracture with possible lytic lesions on the right side of the hip. - Per family, they are not aware of any new falls. however, they did noticed that patient has been less active than usual - my interpretation of labs: Hemoglobin is lower than usual, 9.6, dropped from 13.4 from July of 2023. Patient denies any black stool or fresh blood per rectum, patient does take Xarelto. Chemistry within normal limits - urine positive for UTI - my interpretation of x-ray of the hips, patient does have a right comminuted fracture of the hip. Discussed the patient with orthopedics. With a [facility] team requesting medicine to admit the patient and do risk assessment for possible surgery. Differential Diagnosis Differential Diagnoses: The differential diagnosis associated with the presentation includes ( As above) Admission/Observation Consideration of admission/observation: Escalation of care including admission/observation considered Consult Healthcare Provider Management of the patient was discussed with: Hospitalist and Director Of Special Services Lab Data [facility] Lab Attestation statement: I reviewed the patient's lab results. 01/21/24 15:03 01/21/24 15:04 Labs: Lab Results 01/21/24 01/21/24 01/21/24 Range/Units 15:03 15:04 15:59 WBC 10.1 (4.8-10.8) X10*3/uL RBC 3.22 L D (4.60-5.80) X10*6/uL Hgb 9.6 L D (14.0-18.0) g/dl Hct 29.3 L D (42.0-52.0) % MCV 91.0 (80.0-98.0) fL MCH 29.8 (27.0-33.0) pg MCHC 32.8 (31.0-36.0) g/dl RDW 14.3 (11.0-16.0) % Plt Count 244 D (160-400) X10*3/uL MPV 10.9 (9.4-12.4) fL Immature Gran % (Auto) 4.6 H (0.0-0.4) % Neut % (Auto) 78.4 H (45-73) % Lymph % (Auto) 8.0 L (20-40) % [place] % (Auto) 6.4 (2-11) % Eos % (Auto) 2.1 (0-4) % Baso % (Auto) 0.5 (0-2) % Lymph # (Auto) 0.8 L (1.2-4.9) X10*3/uL [place] # (Auto) 0.7 (0.1-1.2) X10*3/uL Eos # (Auto) 0.2 (0.0-0.4) X10*3/uL Baso # (Auto) 0.1 (0.0-0.2) X10*3/uL Abs Immat Gran (auto) 0.46 H (0.00-0.03) X10*3/uL Absolute Neuts (auto) 7.9 (2.0-8.3) x10*3/uL Absolute Nucleated RBC 0.030 H (0.0-0.012) X10*3/uL Nucleated RBC % (auto) 0.3 H (0.0-0.2) /100WBC PT 16.0 H D (11.1-13.3) SEC INR 1.3 H (0.9-1.1) Sodium 139 (135-145) mmol/L Potassium 4.4 (3.3-5.1) mmol/L Chloride 105 (96-108) mmol/L Carbon Dioxide 26 (22-29) mmol/L Anion Gap 12 (12-20) BUN 18 H (9-16) mg/dL Creatinine 0.60 (0.5-1.4) mg/dL Estim Creat Clear Calc 65.3 Estimated GFR > 60 Random Glucose 123 H (60-115) mg/dL Calcium 8.8 (8.4-10.2) mg/dL Magnesium 2.1 (1.6-2.6) mg/dL Total Bilirubin 1.0 (0.0-1.0) mg/dL Direct Bilirubin 0.4 (0.0-0.5) mg/dL AST 43 H (5-37) U/L ALT 35 (0-40) U/L Alkaline Phosphatase 116 (39-117) U/L Troponin I High Sens 23.1 D (<3.5-35.0) ng/L Total Protein 6.0 L (6.5-8.0) g/dL Albumin 2.4 L (3.5-5.0) g/dL Lipase 24 (8-78) U/L Urine Color Dark Yellow Urine Appearance Cloudy Urine pH 5.5 (5.0-9.0) Ur Specific [place] >= 1.030 H (1.005-1.025) Urine Protein Trace (Neg-Trace) mg/dL Urine Glucose (UA) Negative (Negative) mg/dL Urine Ketones Trace (Negative) mg/dL Urine Blood Negative (Negative) Urine Nitrite Positive H (Negative) Ur Leukocyte Esterase Trace H (Negative) Urine RBC 0-2 (0-2) /HPF Urine WBC 0-5 (0-5) /HPF Ur Squamous Epith Cells 3-5 (0-2) /HPF Urine Bacteria None Seen (None Seen) Hyaline Casts 0-2 (0-2) /LPF Stool Occult Blood (NEGATIVE) COVID-19 (CATE) Negative (Negative) COVID-19 Clin Com See Note 01/21/24 Range/Units 16:44 WBC (4.8-10.8) X10*3/uL RBC (4.60-5.80) X10*6/uL Hgb (14.0-18.0) g/dl Hct (42.0-52.0) % MCV (80.0-98.0) fL MCH (27.0-33.0) pg MCHC (31.0-36.0) g/dl RDW (11.0-16.0) % Plt Count (160-400) X10*3/uL MPV (9.4-12.4) fL Immature Gran % (Auto) (0.0-0.4) % Neut % (Auto) (45-73) % Lymph % (Auto) (20-40) % [place] % (Auto) (2-11) % Eos % (Auto) (0-4) % Baso % (Auto) (0-2) % Lymph # (Auto) (1.2-4.9) X10*3/uL [place] # (Auto) (0.1-1.2) X10*3/uL Eos # (Auto) (0.0-0.4) X10*3/uL Baso # (Auto) (0.0-0.2) X10*3/uL Abs Immat Gran (auto) (0.00-0.03) X10*3/uL Absolute Neuts (auto) (2.0-8.3) x10*3/uL Absolute Nucleated RBC (0.0-0.012) X10*3/uL Nucleated RBC % (auto) (0.0-0.2) /100WBC PT (11.1-13.3) SEC INR (0.9-1.1) Sodium (135-145) mmol/L Potassium (3.3-5.1) mmol/L Chloride (96-108) mmol/L Carbon Dioxide (22-29) mmol/L Anion Gap (12-20) BUN (9-16) mg/dL Creatinine (0.5-1.4) mg/dL Estim Creat Clear Calc Estimated GFR Random Glucose (60-115) mg/dL Calcium (8.4-10.2) mg/dL Magnesium (1.6-2.6) mg/dL Total Bilirubin (0.0-1.0) mg/dL Direct Bilirubin (0.0-0.5) mg/dL AST (5-37) U/L ALT (0-40) U/L Alkaline Phosphatase (39-117) U/L Troponin I High Sens (<3.5-35.0) ng/L Total Protein (6.5-8.0) g/dL Albumin (3.5-5.0) g/dL Lipase (8-78) U/L Urine Color Urine Appearance Urine pH (5.0-9.0) Ur Specific [place] (1.005-1.025) Urine Protein (Neg-Trace) mg/dL Urine Glucose (UA) (Negative) mg/dL Urine Ketones (Negative) mg/dL Urine Blood (Negative) Urine Nitrite (Negative) Ur Leukocyte Esterase (Negative) Urine RBC (0-2) /HPF Urine WBC (0-5) /HPF Ur Squamous Epith Cells (0-2) /HPF Urine Bacteria (None Seen) Hyaline Casts (0-2) /LPF Stool Occult Blood NEGATIVE (NEGATIVE) COVID-19 (CATE) (Negative) COVID-19 Clin Com Independent Interpretation I performed an independent interpretation of an: Plain X-Ray Radiology Impression Discussion of test interpretation with radiology: I have reviewed the radiologist's reading. Radiologist Impression: IMPRESSION: Right femoral intertrochanteric fracture with mild proximal retraction. 1. Moderate constipation, otherwise nonspecific bowel gas pattern. No obstruction. 2. Abnormal appearance of the right ureter trochanter, also abnormal in location as discussed above. Recommend dedicated right hip films. Suspect a fracture with a possible underlying lytic process affecting the right greater trochanter and intertrochanteric region. 3. Vascular calcifications. 1. No acute bony abnormalities identified right knee. 2. Small joint effusion. 3. 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 4. Vascular calcifications. Independent Historian Clinical information obtained from an independent historian. History obtained from or confirmed by: Other ( patient's daughter) Critical Care Time Critical Care Time Critical Care Time: Yes Total Critical Care Time: 60 Attestation: I have personally provided critical care time. Time includes review of lab data, radiology results, discussion with consultants, and monitoring for potential decompensation. Intervention performed as documented. Discharge Plan Discharge Clinical Impression: Fracture, intertrochanteric, right femur, Pneumonia, UTI (urinary tract infection) Patient Disposition: Admitted As Inpatient Print Language: Mongolian
[2024-01-21 15:07] LABS: MANUAL DIFF FLAG NO
[2024-01-21 15:09] LABS: Basophils Absolute Auto 0.1 X10*3/uL (0.0-0.2); Basophils Percent Auto 0.5 % (0-2); Eosinophils Absolute Auto 0.2 X10*3/uL (0.0-0.4); Eosinophils Percent Auto 2.1 % (0-4); Hematocrit 29.3 % (42.0-52.0); Hemoglobin 9.6 g/dl (14.0-18.0); Imm Gran Abs Auto 0.46 X10*3/uL (0.00-0.03); Imm Gran Pct Auto 4.6 % (0.0-0.4); Lymphocytes Absolute Auto 0.8 X10*3/uL (1.2-4.9); Mean Corpuscular HGB Conc 32.8 g/dl (31.0-36.0); Mean Corpuscular Hemoglobin 29.8 pg (27.0-33.0); Mean Platelet Volume 10.9 fL (9.4-12.4); Monocytes Absolute Auto 0.7 X10*3/uL (0.1-1.2); Monocytes Percent Auto 6.4 % (2-11); NRBC Pct Auto 0.3 /100WBC (0.0-0.2); Neutrophils Absolute Auto 7.9 x10*3/uL (2.0-8.3); Neutrophils Percent Auto 78.4 % (45-73); Platelet Count 244 X10*3/uL (160-400); Red Blood Count 3.22 X10*6/uL (4.60-5.80); Red Cell Distribution Width 14.3 % (11.0-16.0); White Blood Count 10.1 X10*3/uL (4.8-10.8)
[2024-01-21 15:14] LABS: INTERNATIONAL NORM RATIO 1.3 (0.9-1.1)
[2024-01-21 15:25] LABS: Alanine Aminotransferase 35 U/L (0-40); Albumin Level 2.4 g/dL (3.5-5.0); Alkaline Phosphatase 116 U/L (39-117); Anion Gap 12 (12-20); Aspartate Amino Transferase 43 U/L (5-37); Bilirubin Direct 0.4 mg/dL (0.0-0.5); Blood Urea Nitrogen 18 mg/dL (9-16); Calcium 8.8 mg/dL (8.4-10.2); Carbon Dioxide 26 mmol/L (22-29); Chloride 105 mmol/L (96-108); Creatinine Clr Calc Pharmacy 65.3; Estimated Glomerular Filt Rate > 60; Glucose Random 123 mg/dL (60-115); Lipase 24 U/L (8-78); Magnesium 2.1 mg/dL (1.6-2.6); Potassium 4.4 mmol/L (3.3-5.1); Sodium 139 mmol/L (135-145)
[2024-01-21 15:32] LABS: COVID-19 Test Negative (Negative); IDNOW Serial# 08D9AD1C; Troponin-I High Sensitivity 23.1 ng/L (<3.5-35.0)
--- NOTE | 2024-01-21 16:03 | PC.NURSE ---
75 cc of a dark angeline foul smelling urine obtained via straight catherization without any complications
--- NOTE | 2024-01-21 16:05 | PC.NURSE ---
patient is somewhat alert but difficult to have any conversation with at this time. family is present. per daughter he has a good appetite and has been taking in liquids
[2024-01-21 16:17] LABS: Appearance Urine Cloudy; Color Urine Dark Yellow; Glucose Urine UA Negative (Negative); Leukocyte Esterase Urine Trace (Negative); Nitrite Urine Positive (Negative); PH 5.5 (5.0-9.0); Specific Gravity - Urine >= 1.030 (1.005-1.025); UMIC TRIGGER UACC YES; Urine Blood Negative (Negative); Urine Ketones Trace mg/dL (Negative); Urine Protein Trace mg/dL (Neg-Trace)
[2024-01-21 16:49] LABS: Bacteria Urine None Seen (None Seen); Hyaline Casts Urine 0-2 /LPF (0-2); RBC Urine 0-2 /HPF (0-2); UACC Culture Trigger YES; WBC Urine 0-5 /HPF (0-5)
[2024-01-21 16:54] LABS: OBS Int Ctl Valid YES; OBS1 NEGATIVE (NEGATIVE)
[2024-01-21] MEDS: 0.9 % Sodium Chloride 1,000 ML 999 ML IVCONT (17:56)
[2024-01-21] MEDS: cefTRIAXone sodium 1 GM in 0.9 % Sodium Chloride 50 ML IV (17:56)
--- NOTE | 2024-01-21 19:17 | PC.NURSE ---
1899 report received from Annalisa FRIEDMAN, assume care of pt at this time
--- NOTE | 2024-01-21 19:43 | MHC.EDTECH ---
This tech took over care of patient at 1900,hourly rounds and vitals completed,this tech changed patient into hospital attire,belongings list completed and copy placed in chart,family at bedside,call santoyo in reach
--- NOTE | 2024-01-21 19:58 | PM.IMHP ---
History of Present Illness Date of Service: 01/21/24 Chief Complaint: Cough This is a 83-year-old male with pertinent history of PE on Xarelto, BPH, Alzheimer's dementia was brought to the emergency department family for evaluation of cough and right hip pain. Unable to obtain history from the patient. He is only oriented to self at the time of my evaluation. History obtained with the help of family at bedside using film color tester. The states that the patient has been having cough for the last 2-3 days which is getting worse. Does report coughing and choking with food. The gives the patient pureed food. No fever or chills. Also family stated that the patient fell at night 2-3 days ago and he got up at night to use the restroom. The fall was unwitnessed. The patient is on Xarelto for anticoagulation. Patient has been complaining of right hip pain since the fall. Unable to obtain review of systems. In the emergency department, imaging with right intertrochanteric femur fracture. Also imaging with pneumonia and patient requiring supplemental oxygen. Review of Systems Review of Systems: Yes Unobtainable due to mental condition and Unobtainable due to mental status PMFSH Medical History Anticoagulated Dementia Pertinent family history: Unable to obtain Social History Alcohol intake: former Patient Tobacco Use Status: Tobacco use Unknown Smoked in Last 30 Days: No Use of substances other than those prescribed or required for medical reasons: No Advance Directives: No Advance Directives Information Provided: Yes Do you have a plan to hurt others: No Plan Meds Allergies Allergy/AdvReac Type Severity Reaction Status Date / Time No Known Allergies Allergy Verified 01/21/24 13:50 Active Medications: Current Medications Acetaminophen (Acetaminophen 325 Mg Tablet) 650 mg PO Q6H PRN PRN Reason: Pain, Mild (Pain Scale 1-3), fever or headache Calcium Carbonate (Calcium Carbonate 750 Mg Tab.Chew) 750 mg PO Q4H PRN PRN Reason: Heartburn Azithromycin 500 mg/ Sodium (Chloride) 250 mls @ 125 mls/hr IV ONCE ONE Stop: 01/21/24 21:24 Melatonin (Melatonin 3 Mg Tablet) 6 mg PO BEDTIME PRN PRN Reason: Insomnia Sodium Chloride (0.9 % Sodium Chloride Flush 3 Ml Syringe) 3 ml IVFLUSH QSHIFT [facility] Home Medications ?Medication ?Instructions ?Recorded ?Confirmed ?Last Taken ?Type acetaminophen 500 mg tablet 500 mg PO DAILY PRN Pain 01/21/24 01/21/24 Unknown History multivitamin 1 tab PO DAILY 01/21/24 01/21/24 Unknown History rivaroxaban 20 mg tablet (Xarelto) 20 mg PO DAILY@1700 01/21/24 01/21/24 Unknown History tamsulosin 0.4 mg capsule 0.4 mg PO DAILY 01/21/24 01/21/24 Unknown History Physical Exam Vital Signs and Narrative: Vital Signs: Last Vital Signs Temp 98.0 F 01/21/24 19:42 Pulse 88 01/21/24 19:42 Resp 14 01/21/24 19:42 BP 113/52 L 01/21/24 19:42 Pulse Ox 94 01/21/24 19:42 O2 Del Method Room Air 01/21/24 19:42 O2 Flow Rate 2 01/21/24 17:03 BMI result Body Mass Index 17.6 Elderly male lying in bed in no distress on supplemental oxygen Neck supple, no JVD Regular rate and rhythm, S1-S2 heard Left-sided crackles present Abdomen soft nontender, no guarding, no rigidity Patient is awake, alert and oriented to self, disoriented to place, time and person ; no focal motor deficit Psych: Normal mood No pedal edema Results Labs 01/21/24 15:03 01/21/24 15:04 Labs: Laboratory Results - last 24 hr 01/21/24 01/21/24 01/21/24 15:03 15:04 15:59 MCV 91.0 MCH 29.8 MCHC 32.8 RDW 14.3 Plt Count 244 D MPV 10.9 Immature Gran % (Auto) 4.6 H Neut % (Auto) 78.4 H Lymph % (Auto) 8.0 L [place] % (Auto) 6.4 Eos % (Auto) 2.1 Baso % (Auto) 0.5 Lymph # (Auto) 0.8 L [place] # (Auto) 0.7 Eos # (Auto) 0.2 Baso # (Auto) 0.1 Abs Immat Gran (auto) 0.46 H Absolute Neuts (auto) 7.9 Absolute Nucleated RBC 0.030 H Nucleated RBC % (auto) 0.3 H PT 16.0 H D INR 1.3 H Anion Gap 12 Estim Creat Clear Calc 65.3 Estimated GFR > 60 Random Glucose 123 H Calcium 8.8 Magnesium 2.1 Total Bilirubin 1.0 Direct Bilirubin 0.4 AST 43 H ALT 35 Alkaline Phosphatase 116 Troponin I High Sens 23.1 D Total Protein 6.0 L Albumin 2.4 L Lipase 24 Urine Color Dark Yellow Urine Appearance Cloudy Urine pH 5.5 Ur Specific [place] >= 1.030 H Urine Protein Trace Urine Glucose (UA) Negative Urine Ketones Trace Urine Blood Negative Urine Nitrite Positive H Ur Leukocyte Esterase Trace H Urine RBC 0-2 Urine WBC 0-5 Ur Squamous Epith Cells 3-5 Urine Bacteria None Seen Hyaline Casts 0-2 Stool Occult Blood COVID-19 (CATE) Negative COVID-19 Clin Com See Note 01/21/24 16:44 MCV MCH MCHC RDW Plt Count MPV Immature Gran % (Auto) Neut % (Auto) Lymph % (Auto) [place] % (Auto) Eos % (Auto) Baso % (Auto) Lymph # (Auto) [place] # (Auto) Eos # (Auto) Baso # (Auto) Abs Immat Gran (auto) Absolute Neuts (auto) Absolute Nucleated RBC Nucleated RBC % (auto) PT INR Anion Gap Estim Creat Clear Calc Estimated GFR Random Glucose Calcium Magnesium Total Bilirubin Direct Bilirubin AST ALT Alkaline Phosphatase Troponin I High Sens Total Protein Albumin Lipase Urine Color Urine Appearance Urine pH Ur Specific [place] Urine Protein Urine Glucose (UA) Urine Ketones Urine Blood Urine Nitrite Ur Leukocyte Esterase Urine RBC Urine WBC Ur Squamous Epith Cells Urine Bacteria Hyaline Casts Stool Occult Blood NEGATIVE COVID-19 (CATE) COVID-19 Clin Com Imaging Radiologist's Impressions: Impressions Knee X-Ray 01/21/24 13:49 IMPRESSION: 1. No acute bony abnormalities identified left knee. 2. Small joint effusion. 3. 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 4. Vascular calcifications Electronically signed by: Ramos Pitts MD 01/21/2024 03:21 PM EDT Chest X-Ray 01/21/24 14:09 IMPRESSION: 1. Findings suggestive of left upper lung pneumonia. 2. Hazy interstitial prominence suggesting mild fluid overload/CHF. 3. Left effusion suspected. Electronically signed by: Ramos Pitts MD 01/21/2024 03:32 PM EDT RP Knee X-Ray 01/21/24 14:13 IMPRESSION: 1. No acute bony abnormalities identified right knee. 2. Small joint effusion. 3. 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 4. Vascular calcifications. Electronically signed by: Ramos Pitts MD 01/21/2024 03:26 PM EDT RP KUB X-Ray 01/21/24 14:14 IMPRESSION: 1. Moderate constipation, otherwise nonspecific bowel gas pattern. No obstruction. 2. Abnormal appearance of the right ureter trochanter, also abnormal in location as discussed above. Recommend dedicated right hip films. Suspect a fracture with a possible underlying lytic process affecting the right greater trochanter and intertrochanteric region. 3. Vascular calcifications. Findings discussed with Cinthya Cisneros at 3:40 PM, 01/21/2024 Electronically signed by: Ramos Pitts MD 01/21/2024 03:42 PM EDT RP Hip/Pelvis X-Ray 01/21/24 15:43 IMPRESSION: Right femoral intertrochanteric fracture with mild proximal retraction. Electronically signed by: Sarai Farias MD 01/21/2024 05:03 PM EDT RP Assessment and Plan (1) Hypoxia: Status: Acute (2) Pneumonia: Status: Acute (3) Fracture, intertrochanteric, right femur: Status: Acute Plan This is a 83-year-old male with pertinent history of PE on Xarelto, BPH, Alzheimer's dementia was brought to the emergency department family for evaluation of cough and right hip pain. #. Acute hypoxic respiratory failure due to pneumonia, concerns for aspiration: Will admit patient with supplemental oxygen. Initiating empiric IV Unasyn. No sepsis. Will keep NPO and consult speech #. Acute right femoral intertrochanteric fracture due to unwitnessed fall: Will admit patient with IV opioids p.r.n. for analgesia. Consulting orthopedic surgery, appreciate assistance #. Preoperative risk: RCRI score 0 #. Alzheimer's dementia: Maintain sleep-wake cycle #. History of PE: Hold Xarelto #. Normocytic anemia, chronic #. BPH: On Flomax DVT prophylaxis: Mechanical DNR/DNI. Discussed with at bedside Admit as inpatient and will require two night minimum hospital stay for supplemental oxygen, IV antibiotics, management of fracture (as above), which is not possible in a lesser acute setting. Specialist consult pending Quality Stroke Does the patient have a stroke diagnosis?: No VTE Prior VTE?: No VTE Risk Level:: Medical - moderate - high VTE Device Contraindication: N/A - Device Ordered VTE Drug Contraindication: Treatment Not Indicated
[2024-01-21] MEDS: Morphine Sulfate 2 MG/ML CARTRIDGE IVPUSH (20:13)
--- NOTE | 2024-01-21 21:47 | PHA.MEDREC ---
Addendum entered by Monse Anthony RPh 01/21/24 21:54: Reviewed by [facility]. Original Note: Pharmacy Consult ? Medication Reconciliation Pharmacy has completed the medication reconciliation. Confirmed medications with Gliding [employer] Instructor Logan and help from Dr. Quezada. Logan advised me that he spoke with the patient earlier with Dr. Quezada and the had brought in her husbands prescription bottles. Logan and I messaged Dr. Quezada to see if he remembered what he was taking and he was able to provide us that information and confirmed he got it from the Rx bottles the brought in. Patient taking Xarelto 20mg, Flomax 0.4mg, Tylenol and a Multivitamin.
[2024-01-21] MEDS: Azithromycin 500 MG in 0.9 % Sodium Chloride 250 ML 125 MG IV (22:04)
--- NOTE | 2024-01-21 22:13 | MHC.EDTECH ---
Hourly rounds and vitals completed,Type N Screen drawn and applied band to right wrist,sent to lab
[2024-01-21] MEDS: bisacodyL 10 MG SUPP.RECT PR (23:08)
[2024-01-21] MEDS: Ampicillin Sodium/Sulbactam Na 3 GM in 0.9 % Sodium Chloride 100 ML IV (23:08)
--- NOTE | 2024-01-21 23:36 | MHC.EDTECH ---
This tech applied a foam dressing to patient's buttocks near sacrum area, patient has a wound RN aware and took pictures.rectal temp taken and s 99.4 . Osman was emptied 300MLS of orange/tea color urine ,repositioned patient to comfort
[2024-01-22] VITALS (15 sets, daily range): BP systolic 92–124; BP diastolic 45–76; PULSE 78–165; RESP 11–20; TEMP 36.6–37.1; O2SAT 88–98; BMI 19.0
--- NOTE | 2024-01-22 01:43 | MHC.EDTECH ---
Hourly rounds and vitals completed, repositioned pt to comfort call santoyo in reach
--- NOTE | 2024-01-22 03:19 | MHC.EDTECH ---
Patient placed in hospital bed for comfort,patient had an XLG bowel movement brown semi-soft,patient was cleaned and rahul-care given,call santoyo in reach
[2024-01-22] MEDS: Ampicillin Sodium/Sulbactam Na 3 GM in 0.9 % Sodium Chloride 100 ML IV ×4 (03:32→20:05)
[2024-01-22] MEDS: 0.9 % Sodium Chloride Flush 3 ML SYRINGE IVFLUSH ×2 (03:33→20:08)
--- NOTE | 2024-01-22 03:45 | PC.NURSE ---
resting quietly in bed, resp with ease, no s/s of acute distress
--- NOTE | 2024-01-22 05:31 | MHC.EDTECH ---
Patient was incont. X2 of a large amount of semi-soft brown stool,patient was cleaned and bed linen changed,applied a new foam dressing to sacrum,vitals taken,call santoyo in reach
--- NOTE | 2024-01-22 07:04 | PC.NURSE ---
report given to Abiola FRIEDMAN
[2024-01-22 09:42] LABS: MANUAL DIFF FLAG NO
--- NOTE | 2024-01-22 09:44 | PC.NURSE ---
FAmily at bedside. able communicate minimally with patient. states he has pain and family requesting PRN morphine. pt is unable to follow commands. family states this is baseline.
[2024-01-22] MEDS: Morphine Sulfate 2 MG/ML CARTRIDGE IVPUSH (10:02)
[2024-01-22 10:09] LABS: Troponin-I High Sensitivity 34.7 ng/L (<3.5-35.0)
[2024-01-22 10:10] LABS: Anion Gap 11 (12-20); Blood Urea Nitrogen 16 mg/dL (9-16); Calcium 8.4 mg/dL (8.4-10.2); Carbon Dioxide 24 mmol/L (22-29); Chloride 109 mmol/L (96-108); Creatinine Clr Calc Pharmacy 68.7; Estimated Glomerular Filt Rate > 60; Glucose Random 81 mg/dL (60-115); Potassium 4.4 mmol/L (3.3-5.1); Sodium 140 mmol/L (135-145)
[2024-01-22 10:23] LABS: Procalcitonin 0.12 ng/mL
--- NOTE | 2024-01-22 10:25 | P.CONOP_ITS ---
History of Present Illness HPI Consult date: 01/22/24 Chief complaint: Cough, Hip pain Narrative: Mr. Emery Pascual is an 83 year old male with a PMH significant for PE on Xarelto, BPH, Alzheimer's dementia presented to the ED for failure to thrive. Upon further investigation the patient was found to have a right hip intertrochanteric fracture, a UTI, and PNA. Son and [id number] are at bedside this morning and available for interview. Through an language interpreter they reported that the patient was last seen walking normally about a month ago. They saw the patient on Wednesday while his was attempting to have him stand and walk but he was unable to. 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 The patient was admitted to the medicine service, risk assessment and optimization would need to be discussed prior to surgical intervention. Hold Xerelto 48-72 hours prior to any surgical intervention. Review of Systems 2 Review of Systems: Yes all other systems are reviewed and are negative [facility] Past Medical History Medical History Anticoagulated Dementia Social History Social History Alcohol intake: former Patient Tobacco Use Status: Tobacco use Unknown Smoked in Last 30 Days: No Use of substances other than those prescribed or required for medical reasons: No Advance Directives: No Advance Directives Information Provided: Yes Do you have a plan to hurt others: No Plan Meds Allergies Allergy/AdvReac Type Severity Reaction Status Date / Time No Known Allergies Allergy Verified 01/21/24 13:50 Active Medications: Current Medications Acetaminophen (Acetaminophen 325 Mg Tablet) 650 mg PO Q6H PRN PRN Reason: Pain, Mild (Pain Scale 1-3), fever or headache Benzonatate (Benzonatate 100 Mg Capsule) 100 mg PO TID PRN PRN Reason: Cough Calcium Carbonate (Calcium Carbonate 750 Mg Tab.Chew) 750 mg PO Q4H PRN PRN Reason: Heartburn Ampicillin Sodium/Sulbactam (Sodium 3 gm/ Sodium Chloride) 100 mls @ 200 mls/hr IV Q6H [facility] Last Infusion: 01/22/24 10:05 Dose: Infused Dextrose/Sodium Chloride (D51/2ns) 1,000 mls @ 80 mls/hr IVCONT .[id number] [facility] Magnesium Hydroxide (Milk Of Magnesia 30 Ml Oral.Susp) 30 ml PO DAILY PRN PRN Reason: Constipation Melatonin (Melatonin 3 Mg Tablet) 6 mg PO BEDTIME PRN PRN Reason: Insomnia Morphine Sulfate (Morphine Sulfate 2 Mg/Ml Cartridge) 2 mg IVPUSH Q4H PRN; Protocol PRN Reason: Pain, Severe (Pain Scale 7-10) Last Admin: 01/22/24 10:02 Dose: 2 mg Ondansetron HCl (Ondansetron Hcl 4 Mg/2 Ml Vial) 4 mg IVPUSH Q8H PRN PRN Reason: Nausea and Vomiting Sodium Chloride (0.9 % Sodium Chloride Flush 3 Ml Syringe) 3 ml IVFLUSH QSHIFT [facility] Last Admin: 01/22/24 09:33 Dose: Not Given Home Medications ?Medication ?Instructions ?Recorded ?Confirmed ?Last Taken ?Type acetaminophen 500 mg tablet 500 mg PO DAILY PRN Pain 01/21/24 01/21/24 Unknown History multivitamin 1 tab PO DAILY 01/21/24 01/21/24 Unknown History rivaroxaban 20 mg tablet (Xarelto) 20 mg PO DAILY@1700 01/21/24 01/21/24 Unknown History tamsulosin 0.4 mg capsule 0.4 mg PO DAILY 01/21/24 01/21/24 Unknown History Physical Exam 2 Vital Signs: Vital Signs: Last Vital Signs Temp 98.6 F 01/22/24 05:45 Pulse 102 H 01/22/24 08:52 Resp 18 01/22/24 09:29 BP 111/51 L 01/22/24 09:29 Pulse Ox 94 01/22/24 09:29 O2 Del Method Nasal Cannula 01/22/24 09:29 O2 Flow Rate 2 01/22/24 09:29 BMI result Body Mass Index 17.6 Const: General: cooperative, healthy appearing and no acute distress Resp: Effort & Inspection: normal respiratory effort and able to speak in complete sentences Cardio: Rate: regular rate Peripheral pulses: Peripheral pulses 2+ throughout GI: Palpation (GI): Soft to palpation Skin: Lesions: no lesions Rashes: no rashes Extrem: Other: Right lower extremity shortened and externally rotated. Results Labs 01/21/24 15:03 01/22/24 09:37 Labs: Abnormal lab results 01/21/24 01/21/24 01/21/24 Range/Units 15:03 15:04 15:59 RBC 3.22 L D (4.60-5.80) X10*6/uL Hgb 9.6 L D (14.0-18.0) g/dl Hct 29.3 L D (42.0-52.0) % Immature Gran % (Auto) 4.6 H (0.0-0.4) % Neut % (Auto) 78.4 H (45-73) % Lymph % (Auto) 8.0 L (20-40) % Lymph # (Auto) 0.8 L (1.2-4.9) X10*3/uL Abs Immat Gran (auto) 0.46 H (0.00-0.03) X10*3/uL Absolute Nucleated RBC 0.030 H (0.0-0.012) X10*3/uL Nucleated RBC % (auto) 0.3 H (0.0-0.2) /100WBC PT 16.0 H D (11.1-13.3) SEC INR 1.3 H (0.9-1.1) Chloride (96-108) mmol/L Anion Gap (12-20) BUN 18 H (9-16) mg/dL Random Glucose 123 H (60-115) mg/dL AST 43 H (5-37) U/L Total Protein 6.0 L (6.5-8.0) g/dL Albumin 2.4 L (3.5-5.0) g/dL Ur Specific [place] >= 1.030 H (1.005-1.025) Urine Nitrite Positive H (Negative) Ur Leukocyte Esterase Trace H (Negative) 01/22/24 Range/Units 09:37 RBC (4.60-5.80) X10*6/uL Hgb (14.0-18.0) g/dl Hct (42.0-52.0) % Immature Gran % (Auto) (0.0-0.4) % Neut % (Auto) (45-73) % Lymph % (Auto) (20-40) % Lymph # (Auto) (1.2-4.9) X10*3/uL Abs Immat Gran (auto) (0.00-0.03) X10*3/uL Absolute Nucleated RBC (0.0-0.012) X10*3/uL Nucleated RBC % (auto) (0.0-0.2) /100WBC PT (11.1-13.3) SEC INR (0.9-1.1) Chloride 109 H (96-108) mmol/L Anion Gap 11 L (12-20) BUN (9-16) mg/dL Random Glucose (60-115) mg/dL AST (5-37) U/L Total Protein (6.5-8.0) g/dL Albumin (3.5-5.0) g/dL Ur Specific [place] (1.005-1.025) Urine Nitrite (Negative) Ur Leukocyte Esterase (Negative) H & H 01/21/24 Range/Units 15:03 Hgb 9.6 L D (14.0-18.0) g/dl Hct 29.3 L D (42.0-52.0) % Coagulation 01/21/24 Range/Units 15:04 INR 1.3 H (0.9-1.1) All other labs normal. Assessment and Plan (1) Fracture, intertrochanteric, right femur: Status: Acute I discussed the case with Dr. Elise and explained the extent of the injury to the patient's son and daughter in law at bedside and options available which include surgical intervention. I explained the procedure in detail along with the length of recovery and rehab course. I explained the risk, benefits and alternatives. Risk including, but not limited to infection, blood clots, bleeding, non union or malunion and nerve/tissue damage to surrounding areas. I answered all their questions and with their understanding they have consented to move forward with Operative Fixation of the right hip. The patient will be T&S, med clearance and risk assessment to be obtained by medicine and NPO after midnight. Plan for surgical intervention tomorrow if cleared. (2) UTI (urinary tract infection): Status: Acute (3) Pneumonia: Status: Acute (4) Hypoxia: Status: Acute Procedures Date of Service Date of Service: 01/22/24
--- NOTE | 2024-01-22 10:36 | PC.NURSE ---
cleansed of sml amount mucousy BM. new dressing on coccxys wound. grimaced with pain even after IV morphine. hospitalist with patient and family at bedside. positioned left side lying. bruising noted right groin.
[2024-01-22 10:44] LABS: Basophils Absolute Auto 0.1 X10*3/uL (0.0-0.2); Basophils Percent Auto 0.3 % (0-2); Eosinophils Absolute Auto 0.1 X10*3/uL (0.0-0.4); Eosinophils Percent Auto 0.6 % (0-4); Hematocrit 27.7 % (42.0-52.0); Hemoglobin 8.8 g/dl (14.0-18.0); Imm Gran Abs Auto 0.39 X10*3/uL (0.00-0.03); Imm Gran Pct Auto 2.4 % (0.0-0.4); Lymphocytes Absolute Auto 0.8 X10*3/uL (1.2-4.9); Lymphocytes Percent Auto 5.3 % (20-40); Mean Corpuscular HGB Conc 31.8 g/dl (31.0-36.0); Mean Corpuscular Hemoglobin 29.4 pg (27.0-33.0); Mean Corpuscular Volume 92.6 fL (80.0-98.0); Mean Platelet Volume 11.2 fL (9.4-12.4); Monocytes Absolute Auto 0.8 X10*3/uL (0.1-1.2); Monocytes Percent Auto 4.8 % (2-11); NRBC Pct Auto 0.1 /100WBC (0.0-0.2); Neutrophils Absolute Auto 13.8 x10*3/uL (2.0-8.3); Neutrophils Percent Auto 86.6 % (45-73); Platelet Count 236 X10*3/uL (160-400); Red Blood Count 2.99 X10*6/uL (4.60-5.80); Red Cell Distribution Width 14.5 % (11.0-16.0); White Blood Count 15.9 X10*3/uL (4.8-10.8)
[2024-01-22] MEDS: Dextrose 5 % and 0.45 % NaCl 1,000 ML 80 ML IVCONT ×2 (10:58→20:33)
--- NOTE | 2024-01-22 11:06 | PC.NURSE ---
mouth breather. switched to oxymask at 2L.
--- NOTE | 2024-01-22 11:12 | P.PNIM_ITS ---
Subjective Subjective Date of Service: 01/22/24 Interval History: hx in [place] from pt's son multiple falls no hx of CAD or CVA due to advanced dementia, unable to obtain hx from pt Review of Systems Review of Systems: Yes Unobtainable due to mental status Physical Exam 2 Vital Signs: Vital Signs: Last Vital Signs Temp 98.7 F 01/22/24 11:00 Pulse 94 01/22/24 10:59 Resp 18 01/22/24 10:59 BP 113/55 L 01/22/24 10:59 Pulse Ox 93 01/22/24 11:05 O2 Del Method Oxymask 01/22/24 11:05 O2 Flow Rate 2 01/22/24 11:05 BMI result Body Mass Index 17.6 Gen: in no acute distress HEENT: sclera anicteric, moist mucus membranes Neck: supple Lungs: clear to auscultation bilaterally Heart: regular rate and rhythm, no murmurs Abd: soft, non-tender, non-distended Ext: no edema, RLE shortened/rotated externally Skin: warm/well-perfused Neuro: alert, unable to assess orientation, moves all extremities Psych: impaired insight Objective Data Active Medications Acetaminophen (Acetaminophen 325 Mg Tablet) 650 mg PO Q6H PRN PRN Reason: Pain, Mild (Pain Scale 1-3), fever or headache Benzonatate (Benzonatate 100 Mg Capsule) 100 mg PO TID PRN PRN Reason: Cough Calcium Carbonate (Calcium Carbonate 750 Mg Tab.Chew) 750 mg PO Q4H PRN PRN Reason: Heartburn Ampicillin Sodium/Sulbactam (Sodium 3 gm/ Sodium Chloride) 100 mls @ 200 mls/hr IV Q6H [facility] Last Infusion: 01/22/24 10:05 Dose: Infused Documented By: ROBBIE Dextrose/Sodium Chloride (D51/2ns) 1,000 mls @ 80 mls/hr IVCONT .[id number] [facility] Last Admin: 01/22/24 10:58 Dose: 80 mls/hr Documented By: ROBBIE Cefazolin Sodium/Dextrose (Ancef) 2 gm in 50 mls @ 100 mls/hr IV PREOP ONE Stop: 01/23/24 07:29 Magnesium Hydroxide (Milk Of Magnesia 30 Ml Oral.Susp) 30 ml PO DAILY PRN PRN Reason: Constipation Melatonin (Melatonin 3 Mg Tablet) 6 mg PO BEDTIME PRN PRN Reason: Insomnia Morphine Sulfate (Morphine Sulfate 2 Mg/Ml Cartridge) 2 mg IVPUSH Q4H PRN; Protocol PRN Reason: Pain, Severe (Pain Scale 7-10) Last Admin: 01/22/24 10:02 Dose: 2 mg Documented By: ROBBIE Ondansetron HCl (Ondansetron Hcl 4 Mg/2 Ml Vial) 4 mg IVPUSH Q8H PRN PRN Reason: Nausea and Vomiting Sodium Chloride (0.9 % Sodium Chloride Flush 3 Ml Syringe) [facility] Last Admin: 01/22/24 09:33 Dose: Not Given Documented By: ROBBIE Non-Admin Reason: Med Not Available Labs 01/22/24 09:37 01/22/24 09:37 Labs: Laboratory Results - last 24 hr 01/21/24 01/21/24 01/21/24 15:03 15:04 15:59 MCV 91.0 MCH 29.8 MCHC 32.8 RDW 14.3 Plt Count 244 D MPV 10.9 Immature Gran % (Auto) 4.6 H Neut % (Auto) 78.4 H Lymph % (Auto) 8.0 L Bertie % (Auto) 6.4 Eos % (Auto) 2.1 Baso % (Auto) 0.5 Lymph # (Auto) 0.8 L Bertie # (Auto) 0.7 Eos # (Auto) 0.2 Baso # (Auto) 0.1 Abs Immat Gran (auto) 0.46 H Absolute Neuts (auto) 7.9 Absolute Nucleated RBC 0.030 H Nucleated RBC % (auto) 0.3 H PT 16.0 H D INR 1.3 H Anion Gap 12 Estim Creat Clear Calc 65.3 Estimated GFR > 60 Random Glucose 123 H Calcium 8.8 Magnesium 2.1 Total Bilirubin 1.0 Direct Bilirubin 0.4 AST 43 H ALT 35 Alkaline Phosphatase 116 Troponin I High Sens 23.1 D Total Protein 6.0 L Albumin 2.4 L Lipase 24 Procalcitonin Urine Color Dark Yellow Urine Appearance Cloudy Urine pH 5.5 Ur Specific [place] >= 1.030 H Urine Protein Trace Urine Glucose (UA) Negative Urine Ketones Trace Urine Blood Negative Urine Nitrite Positive H Ur Leukocyte Esterase Trace H Urine RBC 0-2 Urine WBC 0-5 Ur Squamous Epith Cells 3-5 Urine Bacteria None Seen Hyaline Casts 0-2 Stool Occult Blood COVID-19 (CATE) Negative COVID-19 Clin Com See Note Blood Type Antibody Screen 01/21/24 01/21/24 01/22/24 16:44 21:58 09:37 MCV 92.6 MCH 29.4 MCHC 31.8 RDW 14.5 Plt Count 236 MPV 11.2 Immature Gran % (Auto) 2.4 H Neut % (Auto) 86.6 H Lymph % (Auto) 5.3 L Bertie % (Auto) 4.8 Eos % (Auto) 0.6 Baso % (Auto) 0.3 Lymph # (Auto) 0.8 L Bertie # (Auto) 0.8 Eos # (Auto) 0.1 Baso # (Auto) 0.1 Abs Immat Gran (auto) 0.39 H Absolute Neuts (auto) 13.8 H Absolute Nucleated RBC 0.020 H Nucleated RBC % (auto) 0.1 PT INR Anion Gap 11 L Estim Creat Clear Calc 68.7 Estimated GFR > 60 Random Glucose 81 Calcium 8.4 Magnesium Total Bilirubin Direct Bilirubin AST ALT Alkaline Phosphatase Troponin I High Sens 34.7 D Total Protein Albumin Lipase Procalcitonin 0.12 Urine Color Urine Appearance Urine pH Ur Specific [place] Urine Protein Urine Glucose (UA) Urine Ketones Urine Blood Urine Nitrite Ur Leukocyte Esterase Urine RBC Urine WBC Ur Squamous Epith Cells Urine Bacteria Hyaline Casts Stool Occult Blood NEGATIVE COVID-19 (CATE) COVID-19 Clin Com Blood Type A Positive Antibody Screen NEGATIVE Microbiology Microbiology Results: Microbiology 01/21/24 18:17 Urine Culture - Preliminary Urine clean catch - Clean Catch Midstream No growth to date. Assessment and Plan (1) Fracture, intertrochanteric, right femur: Status: Acute Plan d2 83yo M with Alzheimer dementia, hx PE AC on rivaroxaban, BPH brought in with cough + R hip pain after multiple falls AHRF due to aspiration - weaned off O2; continue ampicillin-sulbactam 01/20-; HEBREW TE[employer]ER evaluation; puree solids + honey liquids in interim R intertrochanteric femur fx - Ortho consulted. RCRI class I but probably intermediate risk due to pneumonia. Family discussed risks/benefits and wishes to proceed. NPO after midnight acute blood loss anemia - due to fx; T+S active; monitor H+H hx PE - hold rivaroxaban, give enoxaparin 1.5 mg/kg/d SQ for now Alzheimer dementia - frequent reorientation malnutrition - supplements VTE ppx - enoxaparin dispo - will need STR eventually In my clinical judgment, the patient requires continued inpatient hospitalization for the following reasons: IV ABX, operative fixation Total time managing care of this patient today: 40 minutes. Quality Stroke Does the patient have a stroke diagnosis?: No VTE Prior VTE?: No VTE Risk Level:: Medical - moderate - high VTE Device Contraindication: N/A - Device Ordered VTE Drug Contraindication: Treatment Not Indicated
[2024-01-22] MEDS: Enoxaparin Sodium 80 MG/0.8 ML SYRINGE 75 MG SUBCUT (12:40)
--- NOTE | 2024-01-22 13:55 | PC.NURSE ---
sitting up at 90 degrees. full assist from for lunch. apple sauce and pudding. rest of tray was not ground. disguarded.
--- NOTE | 2024-01-22 15:31 | PC.NURSE ---
PT SLEEPING SOUNDLY. NAD. SKIN PWD. MOUTH BREATHING. OXYMASK IN PLACE. AWAITS BED ASSIGNMENT. REPOSITIONED AND IN A HOSPITAL BED.
--- NOTE | 2024-01-22 18:37 | PM.EVENT ---
Event Note Date of Service: 01/22/24 Event Note: PNA on abx Will monitor for improvement Continue abx to minimize any risk of possible infection after operative fixation Old fracture - No emergent need for operative fixation Time Spent With Patient Time: Total time managing care of this patient today ____ minutes.
--- NOTE | 2024-01-22 18:41 | ECG_ITS ---
Test Reason : HR elevated 165 Blood Pressure : / mmHG Vent. Rate : 099 BPM Atrial Rate : 000 BPM P-R Int : 000 ms QRS Dur : 086 ms QT Int : 382 ms P-R-T Axes : 000 -53 036 degrees QTc Int : 490 ms Poor data quality, interpretation may be adversely affected Atrial fibrillation Low voltage QRS Left anterior fascicular block Junctional ST depression, probably normal Prolonged QT Abnormal ECG When compared with ECG of 20-AUG-2023 01:20, ST now depressed in Anterior leads Referred By: Alfredo Anglin Electronically Signed By:BOUBACAR WHITE
--- NOTE | 2024-01-22 18:42 | PC.NURSE ---
Addendum entered by Ayla Zuluaga RN 01/22/24 18:59: Spoke with MD Lorena natarajan MD, Per MD pt has hx of afib, placed on tele. No new orders at this time. Original Note: Pt arrived to unit from ED. At this time pt non-verbal per hx pt has advanced dementia. Pt arrived to unit with ED monitor on, HR fluctuating from 90 to 165, MD ashia hernandez texted. EKG ordered.
--- NOTE | 2024-01-22 19:17 | HO.SKINPHOTO ---
Stage 3 to buttocks, covered with pink foam dsg Stage 1 to R heel DTI to L heel
[2024-01-22 19:47] LABS: Lactic Acid 2.2 mmol/L (0.5-2.0)
[2024-01-22 21:22] LABS: Reflex Lactate? Lactic Acid Added
[2024-01-22 22:36] LABS: ~Lactic Acid-LAB USE ONLY 1.1 mmol/L (0.5-2.0)
[2024-01-23] MEDS: Ampicillin Sodium/Sulbactam Na 3 GM in 0.9 % Sodium Chloride 100 ML IV ×4 (03:17→19:42)
[2024-01-23 03:43] VITALS: BP 141/70; PULSE 95; RESP 16; TEMP 36.4; O2SAT 100
[2024-01-23 06:32] LABS: Hematocrit 24.6 % (42.0-52.0); Hemoglobin 7.9 g/dl (14.0-18.0); Mean Corpuscular HGB Conc 32.1 g/dl (31.0-36.0); Mean Corpuscular Hemoglobin 29.4 pg (27.0-33.0); Mean Corpuscular Volume 91.4 fL (80.0-98.0); Mean Platelet Volume 10.6 fL (9.4-12.4); Platelet Count 232 X10*3/uL (160-400); Red Blood Count 2.69 X10*6/uL (4.60-5.80); Red Cell Distribution Width 14.3 % (11.0-16.0); White Blood Count 9.7 X10*3/uL (4.8-10.8)
[2024-01-23 06:58] LABS: Anion Gap 10 (12-20); Blood Urea Nitrogen 13 mg/dL (9-16); Calcium 8.1 mg/dL (8.4-10.2); Carbon Dioxide 24 mmol/L (22-29); Chloride 107 mmol/L (96-108); Creatinine Clr Calc Pharmacy 86.2; Estimated Glomerular Filt Rate > 60; Glucose Random 107 mg/dL (60-115); Potassium 3.7 mmol/L (3.3-5.1); Sodium 137 mmol/L (135-145)
[2024-01-23 07:33] VITALS: BP 104/63; PULSE 72; RESP 14; TEMP 36.4; O2SAT 96
[2024-01-23] MEDS: Dextrose 5 % and 0.45 % NaCl 1,000 ML 80 ML IVCONT ×2 (08:26→22:24)
--- NOTE | 2024-01-23 10:33 | HO.PM.IMPN ---
Subjective Subjective Date of Service: 01/23/24 Interval History: HR reportedly 165 yesterday evening EKG showed rate-controlled AF he remains in rate-controlled AF minimal history due to advanced dementia Review of Systems Review of Systems: Yes Unobtainable due to mental status Physical Exam Vital Signs: Vital Signs: Last Vital Signs Temp 97.5 F 01/23/24 07:33 Pulse 72 01/23/24 07:33 Resp 14 01/23/24 07:33 BP 104/63 01/23/24 07:33 Pulse Ox 96 01/23/24 07:33 O2 Del Method Room Air 01/23/24 07:33 O2 Flow Rate 2 01/23/24 03:43 BMI result Body Mass Index 19.0 Gen: in no acute distress HEENT: sclera anicteric, moist mucus membranes Neck: supple Lungs: clear to auscultation bilaterally Heart: irregular, no murmurs Abd: soft, non-tender, non-distended Ext: no edema, RLE shortened/rotated externally Skin: warm/well-perfused Neuro: alert, unable to assess orientation, moves all extremities Psych: impaired insight Objective Data Active Medications Acetaminophen (Acetaminophen 325 Mg Tablet) 650 mg PO Q6H PRN PRN Reason: Pain, Mild (Pain Scale 1-3), fever or headache Benzonatate (Benzonatate 100 Mg Capsule) 100 mg PO TID PRN PRN Reason: Cough Calcium Carbonate (Calcium Carbonate 750 Mg Tab.Chew) 750 mg PO Q4H PRN PRN Reason: Heartburn Enoxaparin Sodium (Enoxaparin Sodium 80 Mg/0.8 Ml Syringe) 75 mg SUBCUT Q24H [facility] Last Admin: 01/22/24 12:40 Dose: 75 mg Documented By: ROBBIE Ampicillin Sodium/Sulbactam (Sodium 3 gm/ Sodium Chloride) 100 mls @ 200 mls/hr IV Q6H [facility] Last Infusion: 01/23/24 08:56 Dose: Infused Documented By: KOLBY Dextrose/Sodium Chloride (D51/2ns) 1,000 mls @ 80 mls/hr IVCONT .[id number] [facility] Last Admin: 01/23/24 08:26 Dose: 80 mls/hr Documented By: KOLBY Cefazolin Sodium/Dextrose (Ancef) 2 gm in 50 mls @ 100 mls/hr IV PREOP ONE Stop: 01/24/24 14:29 Magnesium Hydroxide (Milk Of Magnesia 30 Ml Oral.Susp) 30 ml PO DAILY PRN PRN Reason: Constipation Melatonin (Melatonin 3 Mg Tablet) 6 mg PO BEDTIME PRN PRN Reason: Insomnia Morphine Sulfate (Morphine Sulfate 2 Mg/Ml Cartridge) 2 mg IVPUSH Q4H PRN; Protocol PRN Reason: Pain, Severe (Pain Scale 7-10) Last Admin: 01/22/24 10:02 Dose: 2 mg Documented By: ROBBIE Ondansetron HCl (Ondansetron Hcl 4 Mg/2 Ml Vial) 4 mg IVPUSH Q8H PRN PRN Reason: Nausea and Vomiting Sodium Chloride (0.9 % Sodium Chloride Flush 3 Ml Syringe) [facility] Last Admin: 01/23/24 08:26 Dose: Not Given Documented By: KOLBY Non-Admin Reason: IV Running Labs 01/23/24 06:18 01/23/24 06:18 Labs: Laboratory Results - last 24 hr 01/22/24 01/22/24 01/22/24 09:37 19:02 21:56 MCV 92.6 MCH 29.4 MCHC 31.8 RDW 14.5 Plt Count 236 MPV 11.2 Immature Gran % (Auto) 2.4 H Neut % (Auto) 86.6 H Lymph % (Auto) 5.3 L Mills % (Auto) 4.8 Eos % (Auto) 0.6 Baso % (Auto) 0.3 Lymph # (Auto) 0.8 L Mills # (Auto) 0.8 Eos # (Auto) 0.1 Baso # (Auto) 0.1 Abs Immat Gran (auto) 0.39 H Absolute Neuts (auto) 13.8 H Absolute Nucleated RBC 0.020 H Nucleated RBC % (auto) 0.1 Anion Gap Estim Creat Clear Calc Estimated GFR Random Glucose Lactic Acid 2.2 H* Lactic Acid F/U @ 2Hr 1.1 Calcium Magnesium 01/23/24 06:18 MCV 91.4 MCH 29.4 MCHC 32.1 RDW 14.3 Plt Count 232 MPV 10.6 Immature Gran % (Auto) Neut % (Auto) Lymph % (Auto) Mills % (Auto) Eos % (Auto) Baso % (Auto) Lymph # (Auto) Mills # (Auto) Eos # (Auto) Baso # (Auto) Abs Immat Gran (auto) Absolute Neuts (auto) Absolute Nucleated RBC 0.000 Nucleated RBC % (auto) 0.0 Anion Gap 10 L Estim Creat Clear Calc 86.2 Estimated GFR > 60 Random Glucose 107 Lactic Acid Lactic Acid F/U @ 2Hr Calcium 8.1 L Magnesium 2.0 Microbiology Microbiology Results: Microbiology 01/21/24 18:17 Urine Culture - Final Urine clean catch - Clean Catch Midstream No growth. Assessment and Plan (1) Fracture, intertrochanteric, right femur: Status: Acute Plan d3 83yo M with Alzheimer dementia, hx PE AC on rivaroxaban, BPH brought in with cough + R hip pain after multiple falls AHRF due to aspiration - weaned off O2; continue ampicillin-sulbactam 01/20-; [employer] SC[employer] evaluation pending; puree solids + honey liquids in interim - leukocytosis resolved; HR elevation yesterday was due to AF, not sepsis R intertrochanteric femur fx, subacute - Ortho consulted. RCRI class I but actually more intermediate risk due to pneumonia + AF. Family discussed risks/benefits and wishes to proceed. Plan tentatively for OR 01/25/24. new-onset AF - TTE, Cardiology consultation. Rate controlled at this point. Already on rivaroxaban for hx PE [on hold for OR] acute blood loss anemia - due to fx; T+S active; monitor H+H daily hx PE - hold rivaroxaban, giving enoxaparin 1.5 mg/kg/d SQ for now Alzheimer dementia - frequent reorientation malnutrition - supplements VTE ppx - enoxaparin dispo - will need STR eventually after operative fixation In my clinical judgment, the patient requires continued inpatient hospitalization for the following reasons: IV ABX, operative fixation Total time managing care of this patient today: 40 minutes. Quality Stroke Does the patient have a stroke diagnosis?: No VTE Prior VTE?: No VTE Risk Level:: Medical - moderate - high VTE Device Contraindication: N/A - Device Ordered VTE Drug Contraindication: Treatment Not Indicated
[2024-01-23] MEDS: Enoxaparin Sodium 80 MG/0.8 ML SYRINGE 75 MG SUBCUT (12:37)
--- NOTE | 2024-01-23 13:08 | P.CONCA_ITS ---
History of Present Illness History of Present Illness Date of Service: 01/23/24 Requesting physician: Alfredo Anglin Chief complaint: Cough, Hip pain Narrative: [age] year gentleman presenting with fall and hip fracture. We have been asked to see him for perioperative risk assessment as well as management of atrial fibrillation. He went into AFib while he was in the hospital. Rates are controlled. He was on Xarelto because he has known history of PE. He has advanced dementia and mostly sleeps during the day and is up at night. The was in the room. No known history of coronary disease or any other issues as per the . No history is possible from the patient. He is being considered for surgery. [facility] Past Medical History Medical History Anticoagulated Dementia Social History Social History Household Members: Unknown / Unable to assess Housing: Unknown / Unable to assess Do you presently have visiting nurse or other home services: No Alcohol intake: former Patient Tobacco Use Status: Tobacco use Unknown service: No Meds Allergies Allergy/AdvReac Type Severity Reaction Status Date / Time No Known Allergies Allergy Verified 01/21/24 13:50 Active Medications: Current Medications Acetaminophen (Acetaminophen 325 Mg Tablet) 650 mg PO Q6H PRN PRN Reason: Pain, Mild (Pain Scale 1-3), fever or headache Benzonatate (Benzonatate 100 Mg Capsule) 100 mg PO TID PRN PRN Reason: Cough Calcium Carbonate (Calcium Carbonate 750 Mg Tab.Chew) 750 mg PO Q4H PRN PRN Reason: Heartburn Enoxaparin Sodium (Enoxaparin Sodium 80 Mg/0.8 Ml Syringe) 75 mg SUBCUT Q24H [facility] Last Admin: 01/23/24 12:37 Dose: 75 mg Ampicillin Sodium/Sulbactam (Sodium 3 gm/ Sodium Chloride) 100 mls @ 200 mls/hr IV Q6H [facility] Last Infusion: 01/23/24 08:56 Dose: Infused Dextrose/Sodium Chloride (D51/2ns) 1,000 mls @ 80 mls/hr IVCONT .[id number] [facility] Last Admin: 01/23/24 08:26 Dose: 80 mls/hr Cefazolin Sodium/Dextrose (Ancef) 2 gm in 50 mls @ 100 mls/hr IV PREOP ONE Stop: 01/24/24 14:29 Magnesium Hydroxide (Milk Of Magnesia 30 Ml Oral.Susp) 30 ml PO DAILY PRN PRN Reason: Constipation Melatonin (Melatonin 3 Mg Tablet) 6 mg PO BEDTIME PRN PRN Reason: Insomnia Morphine Sulfate (Morphine Sulfate 2 Mg/Ml Cartridge) 2 mg IVPUSH Q4H PRN; Protocol PRN Reason: Pain, Severe (Pain Scale 7-10) Last Admin: 01/22/24 10:02 Dose: 2 mg Ondansetron HCl (Ondansetron Hcl 4 Mg/2 Ml Vial) 4 mg IVPUSH Q8H PRN PRN Reason: Nausea and Vomiting Sodium Chloride (0.9 % Sodium Chloride Flush 3 Ml Syringe) 3 ml IVFLUSH QSHIFT [facility] Last Admin: 01/23/24 08:26 Dose: Not Given Home Medications ?Medication ?Instructions ?Recorded ?Confirmed ?Last Taken ?Type acetaminophen 500 mg tablet 500 mg PO DAILY PRN Pain 01/21/24 01/21/24 Unknown History multivitamin 1 tab PO DAILY 01/21/24 01/21/24 Unknown History rivaroxaban 20 mg tablet (Xarelto) 20 mg PO DAILY@1700 01/21/24 01/21/24 Unknown History tamsulosin 0.4 mg capsule 0.4 mg PO DAILY 01/21/24 01/21/24 Unknown History Physical Exam 2 Vital Signs: Vital Signs: Last Vital Signs Temp 97.5 F 01/23/24 07:33 Pulse 72 01/23/24 07:33 Resp 14 01/23/24 07:33 BP 104/63 01/23/24 07:33 Pulse Ox 96 01/23/24 07:33 O2 Del Method Room Air 01/23/24 07:33 O2 Flow Rate 2 01/23/24 03:43 BMI result Body Mass Index 19.0 GENERAL APPEARANCE: Sleeping. Arousable but agitated. NECK: no carotid bruit, no jugular venous distention. SKIN: no suspicious lesions, warm and dry. HEART: no murmurs, irregular rate and rhythm. LUNGS: clear to auscultation bilaterally. ABDOMEN: soft, nontender. EXTREMITIES: no edema. PERIPHERAL PULSES: equal. Objective Labs and Meds 01/23/24 06:18 01/23/24 06:18 Lab results: Laboratory Results - last 24 hr 01/22/24 01/22/24 01/23/24 19:02 21:56 06:18 WBC 9.7 RBC 2.69 L Hgb 7.9 L Hct 24.6 L MCV 91.4 MCH 29.4 MCHC 32.1 RDW 14.3 Plt Count 232 MPV 10.6 Absolute Nucleated RBC 0.000 Nucleated RBC % (auto) 0.0 Sodium 137 Potassium 3.7 Chloride 107 Carbon Dioxide 24 Anion Gap 10 L BUN 13 Creatinine 0.49 L Estim Creat Clear Calc 86.2 Estimated GFR > 60 Random Glucose 107 Lactic Acid 2.2 H* Lactic Acid F/U @ 2Hr 1.1 Calcium 8.1 L Magnesium 2.0 Assessment and Plan (1) Afib: Status: Acute Plan [age] year gentleman with atrial fibrillation, previous PE on anticoagulation presenting with fall. He has advanced dementia and probably had a mechanical fall leading to fracture. He is intermediate risk for surgery. Heart rates are reasonably controlled currently. Blood pressure is soft so I would recommend not adding any beta- chava currently. He should be transfused with 20 mg IV Lasix given to him with transfusion. As he recovers he will go back to Xarelto which he was taking for PE which will cover for atrial fibrillation anticoagulation too. If concerns about stable mobility and frequent falls then we have to really question anticoagulation in this gentleman. This is to be determined. For now hold Xarelto as he needs surgery. Thank you for allowing me to participate in the care of your patient. Please feel free to contact me if you have any questions. Procedures Date of Service Date of Service: 01/23/24
[2024-01-23 16:00] VITALS: BP 147/95; PULSE 98; RESP 16; TEMP 36.9; O2SAT 95
--- NOTE | 2024-01-23 16:03 | PC.NURSE ---
Addendum entered by Ayla Zuluaga RN 01/23/24 17:05: Rhythm reviewed with telepathistIDALIA Swanson and Shameka yanes sup, rhythm appears to be artifact, will hold metoprolol at this time. made aware. Addendum entered by Ayla Zuluaga RN 01/23/24 16:57: 12.5mg PO metoprolol ordered per MD Anglin telephone order. First dose to start now. Original Note: MD Anglin made aware pt HR fluctuating from 86-180 (when turning and with movement), non-sustaining. At rest pt HR fluctuating from 80-130s, non-sustaining Afib. No new orders at this time, other VSS, no overt signs and symptoms of distress.
[2024-01-23 20:00] VITALS: BP 108/54; RESP 18; TEMP 37
--- NOTE | 2024-01-23 21:00 | PC.NURSE ---
Per prior nurse cardiology is aware of artifact on tele monitor from pt's tremors. Leads changed a few times, due to pt rubbing them off. pt bouncing up and down from 80-180. Sinus arrhythmia & sinus rhythm.
[2024-01-23] MEDS: Morphine Sulfate 2 MG/ML CARTRIDGE IVPUSH (22:29)
[2024-01-23] MEDS: 0.9 % Sodium Chloride Flush 3 ML SYRINGE IVFLUSH (22:30)
[2024-01-24] MEDS: Ampicillin Sodium/Sulbactam Na 3 GM in 0.9 % Sodium Chloride 100 ML IV ×4 (02:23→20:44)
[2024-01-24 04:00] VITALS: BP 130/58; PULSE 104; RESP 15; TEMP 36.5; O2SAT 97
[2024-01-24] MEDS: Morphine Sulfate 2 MG/ML CARTRIDGE IVPUSH ×4 (06:02→21:50)
[2024-01-24 06:38] VITALS: PULSE 89
[2024-01-24 06:50] LABS: Anion Gap 9 (12-20); Blood Urea Nitrogen 14 mg/dL (9-16); Calcium 7.8 mg/dL (8.4-10.2); Carbon Dioxide 26 mmol/L (22-29); Chloride 106 mmol/L (96-108); Creatinine Clr Calc Pharmacy 79.7; Estimated Glomerular Filt Rate > 60; Glucose Random 96 mg/dL (60-115); Potassium 3.9 mmol/L (3.3-5.1); Sodium 137 mmol/L (135-145)
[2024-01-24 07:04] LABS: Hematocrit 26.2 % (42.0-52.0); Hemoglobin 8.6 g/dl (14.0-18.0); Mean Corpuscular HGB Conc 32.8 g/dl (31.0-36.0); Mean Corpuscular Hemoglobin 29.6 pg (27.0-33.0); Platelet Count 253 X10*3/uL (160-400); Red Blood Count 2.91 X10*6/uL (4.60-5.80); Red Cell Distribution Width 14.3 % (11.0-16.0); White Blood Count 6.8 X10*3/uL (4.8-10.8)
--- NOTE | 2024-01-24 07:05 | CA_ITS ---
Transthoracic Echocardiogram Patient (Last, First, Middle): Vahid Palma, Gender: Male Date of : 1940 Age: 83 Procedure Date: 01/24/2024 Procedure Type: Transthoracic Echocardiogram Location: S3E Height: 167.64 cm Weight: 53.07 kg BSA: 1.59 m2 Heart Rate: bpm BP: 129 / 95 mmHg It Recruiter: SB Referring MD: Alfredo Anglin MD Smoke Jumper Supervisor: Judah Irwin MD Symptoms: AF Study Quality: Adequate ECG Rhythm: Atrial Fibrillation Conclusions: - 1. Normal LV ejection fraction of 55-60% 2. Moderately dilated left atrium 3. Normal cardiac valvular Doppler 4. Small pericardial effusion more prominent near the left ventricle Findings Left Ventricle Normal left ventricular size and systolic function. There is moderately increased left ventricular wall thickness. The visually estimated ejection fraction is between 55-60%. Diastolic function is indeterminate on the basis of available data. Right Ventricle The right ventricle was not well visualized. Atria The left atrium is moderately dilated. Interatrial shunt cannot be excluded. The right atrium was not well visualized. Aortic Valve There is mild calcification of the aortic valve. There is no aortic valve stenosis. There is no aortic valve regurgitation. Mitral Valve There is mild anterior mitral leaflet thickening. There is mild mitral annular calcification. There is trace mitral valve regurgitation. There is no mitral valve stenosis. Tricuspid Valve The tricuspid valve was not well visualized. Tricuspid regurgitation envelope is inadequate for calculation of right ventricular systolic pressure. Great Vessels All visible segments of the aorta are normal in size. The pulmonary artery was not well visualized. Venous The inferior vena cava was not well visualized. Pericardium/Pleural There is a small loculated pericardial effusion overlying the left ventricle. Prior Study Comparison No prior study available for comparison. Measurements 2D Linear Measurements IVSd: 1.55 0.6-0.9/0.6-1.0 cm LVIDd: 4.11 3.9-5.3/4.2-5.9 cm LVIDd Index: 2.58 2.4-3.2/2.2-3.1 cm/m2 LVIDs: 2.82 2.0-3.6 cm LVPWd: 1.52 0.7-1.1 cm LA Diam: 4.30 2.7-3.8/3.0-4.0 cm LAIDs Index: 2.70 1.5-2.3 cm/m2 LV Mass: 312.75 67-162/88-224 g LV Mass Index: 196.70 43-95/49-115 g/m2 LVOT Diam: 2.30 3.0+(-)1.3 cm 2D Systolic Function EF 4C: 68.70 >55% EF 2C: 47.30 >55% EF BiP: 58.50 >55% Mitral Valve MV Pk E: 1.07 E'Lateral: 7.70 E'Medial: 8.35 E/E' Med: 12.80 E/E' Lat: 13.90 Aortic Valve AoV Pk Matt: 0.87 AoV Pk Grad: 3.00 LVOT LVOT Pk Matt: 0.63 LVOT Mn Matt: 0.47 LVOT VTI: 0.13 LVOT Pk Grad: 2.00 LVOT Mn Grad: 1.00 LVOT Diam: 2.30 LVOT Area: 4.15 Diastolic Function MV Pk E: 1.07 E'Medial: 8.35 E/E' Med: 12.80 E' Laterial: 7.70 E/E' Lat: 13.90 Right Ventricle TAPSE (mm): 10.90 TVS' Matt: 9.57 Tricuspid Valve TR Pk Matt: 2.10 TR Pk Grad: 18.00 Great Vessels Aorta Sinus of Valsalva: 3.70 2.0-3.5 cm Ao Asc: 3.40 2.1-3.4 cm Pulmonary Valve PV Pk Matt: 0.68 Peak PV Grad: 2.00 Updated in Other Vendor System with Status of Final Judah Irwin MD electronically signed on 01/24/2024 4:04:51 PM with status of Final
[2024-01-24 07:06] LABS: Procalcitonin 0.07 ng/mL
[2024-01-24 07:39] VITALS: BP 129/95; PULSE 92; RESP 16; TEMP 36.9; O2SAT 93
--- NOTE | 2024-01-24 11:12 | PM.PNCARD ---
Subjective Subjective Date of Service: 01/24/24 Principal diagnosis: Atrial fibrillation Interval history: I saw the patient at bedside. Does not provide much history. Can not obtain any history from him. Clinically appears to be stable. Heart rate is controlled. Review of Systems Review of Systems Yes Unobtainable due to mental status Physical Exam Vital Signs: Last Vital Signs Temp 98.4 F 01/24/24 07:39 Pulse 92 01/24/24 07:39 Resp 16 01/24/24 07:39 BP 129/95 H 01/24/24 07:39 Pulse Ox 93 01/24/24 07:39 O2 Del Method Room Air 01/24/24 07:39 O2 Flow Rate 2 01/23/24 03:43 BMI result Body Mass Index 19.0 GENERAL APPEARANCE: Sleeping. Arousable but agitated. NECK: no carotid bruit, no jugular venous distention. SKIN: no suspicious lesions, warm and dry. HEART: no murmurs, irregular rate and rhythm. LUNGS: clear to auscultation bilaterally. ABDOMEN: soft, nontender. EXTREMITIES: no edema. PERIPHERAL PULSES: equal. Objective Labs and Meds 01/24/24 06:17 01/24/24 06:17 Lab results: Laboratory Results - last 24 hr 01/24/24 06:17 WBC 6.8 RBC 2.91 L Hgb 8.6 L Hct 26.2 L MCV 90.0 MCH 29.6 MCHC 32.8 RDW 14.3 Plt Count 253 MPV 11.0 Absolute Nucleated RBC 0.000 Nucleated RBC % (auto) 0.0 Sodium 137 Potassium 3.9 Chloride 106 Carbon Dioxide 26 Anion Gap 9 L BUN 14 Creatinine 0.53 Estim Creat Clear Calc 79.7 Estimated GFR > 60 Random Glucose 96 Calcium 7.8 L Procalcitonin 0.07 Progress Note: A&P Assessment and plan (1) Afib: Status: Acute Assessment and Plan: Atrial fibrillation with controlled rate at this point time causing no obvious hemodynamic compromise symptoms. History is very difficult to obtain. Patient is with hip fracture plan to undergo repair. Through the surgery is intermediate to high risk given unknown cardiac status and advanced age and frailty although optimized from that perspective. Intraoperatively would use esmolol for rate control if need be. Can start on low-dose metoprolol 12.5 mg p.o. q.12 hours for rate control. Can resume Xarelto once surgery is completed, unknown duration of atrial fibrillation currently. Will most likely pursue rate control approach. Will sign of the case. Thank you for allowing me to partake in his care Time Spent With Patient Time: Total time managing care of this patient today ____ minutes. Progress Note: Quality Stroke Does the patient have a stroke diagnosis?: No Procedures Date of Service Date of Service: 01/24/24
--- NOTE | 2024-01-24 12:27 | HO.PM.IMPN ---
Subjective Subjective Date of Service: 01/24/24 Interval History: seen and examined resting comfortably Review of Systems Negative except HPI/interval history. Physical Exam Vital Signs: Vital Signs: Last Vital Signs Temp 98.4 F 01/24/24 07:39 Pulse 92 01/24/24 07:39 Resp 16 01/24/24 07:39 BP 129/95 H 01/24/24 07:39 Pulse Ox 93 01/24/24 07:39 O2 Del Method Room Air 01/24/24 07:39 O2 Flow Rate 2 01/23/24 03:43 BMI result Body Mass Index 19.0 Const: Other: General - no acute distress, appears comfortable Cardiovascular - regular rate and rhythm, S1-S2 Lungs - normal respiratory effort, clear to auscultation bilaterally, no wheezing Abdomen - soft, nontender, no rebound or guarding Extremities - no edema bilaterally Objective Data Active Medications Acetaminophen (Acetaminophen 325 Mg Tablet) 650 mg PO Q6H PRN PRN Reason: Pain, Mild (Pain Scale 1-3), fever or headache Benzonatate (Benzonatate 100 Mg Capsule) 100 mg PO TID PRN PRN Reason: Cough Calcium Carbonate (Calcium Carbonate 750 Mg Tab.Chew) 750 mg PO Q4H PRN PRN Reason: Heartburn Enoxaparin Sodium (Enoxaparin Sodium 80 Mg/0.8 Ml Syringe) 75 mg SUBCUT Q24H [facility] Last Admin: 01/24/24 11:28 Dose: Not Given Documented By: BARB Non-Admin Reason: surgical procedure Ampicillin Sodium/Sulbactam (Sodium 3 gm/ Sodium Chloride) 100 mls @ 200 mls/hr IV Q6H [facility] Last Infusion: 01/24/24 10:19 Dose: Infused Documented By: ABRB Dextrose/Sodium Chloride (D51/2ns) 1,000 mls @ 80 mls/hr IVCONT .[id number] [facility] Last Admin: 01/24/24 12:09 Dose: Not Given Documented By: BARB Non-Admin Reason: IV Running Cefazolin Sodium/Dextrose (Ancef) 2 gm in 50 mls @ 100 mls/hr IV PREOP ONE Stop: 01/24/24 14:29 Magnesium Hydroxide (Milk Of Magnesia 30 Ml Oral.Susp) 30 ml PO DAILY PRN PRN Reason: Constipation Melatonin (Melatonin 3 Mg Tablet) 6 mg PO BEDTIME PRN PRN Reason: Insomnia Morphine Sulfate (Morphine Sulfate 2 Mg/Ml Cartridge) 2 mg IVPUSH Q4H PRN; Protocol PRN Reason: Pain, Severe (Pain Scale 7-10) Last Admin: 01/24/24 10:53 Dose: 2 mg Documented By: BARB Ondansetron HCl (Ondansetron Hcl 4 Mg/2 Ml Vial) 4 mg IVPUSH Q8H PRN PRN Reason: Nausea and Vomiting Sodium Chloride (0.9 % Sodium Chloride Flush 3 Ml Syringe) 3 ml IVFLUSH QSHIFT [facility] Last Admin: 01/24/24 09:35 Dose: Not Given Documented By: BARB Non-Admin Reason: IV Running Labs 01/24/24 06:17 01/24/24 06:17 Labs: Laboratory Results - last 24 hr 01/24/24 06:17 MCV 90.0 MCH 29.6 MCHC 32.8 RDW 14.3 Plt Count 253 MPV 11.0 Absolute Nucleated RBC 0.000 Nucleated RBC % (auto) 0.0 Anion Gap 9 L Estim Creat Clear Calc 79.7 Estimated GFR > 60 Random Glucose 96 Calcium 7.8 L Procalcitonin 0.07 Microbiology Microbiology Results: Microbiology 01/22/24 19:03 Blood Culture - Preliminary Blood - Venous No growth after 24 hours. 01/22/24 19:03 Blood Culture - Preliminary Blood - Venous No growth after 24 hours. Assessment and Plan (1) Fracture, intertrochanteric, right femur: Status: Acute Plan d3 83yo M with Alzheimer dementia, hx PE AC on rivaroxaban, BPH brought in with cough + R hip pain after multiple falls AHRF due to aspiration - weaned off O2; continue ampicillin-sulbactam 01/20-; [employer] evaluation pending; puree solids + honey liquids in interim R intertrochanteric femur fx, subacute - Ortho consulted. RCRI class I but actually more intermediate risk due to pneumonia + AF. Family discussed risks/benefits and wishes to proceed. P informed by ortho -- would like to wait for improvement in his acute infections prior to surgery -- tentative plan for later this week new-onset AF - TTE, Cardiology consultation. Rate controlled at this point. Already on rivaroxaban for hx PE [on hold for OR] acute blood loss anemia - due to fx; T+S active; monitor H+H daily hx PE - hold rivaroxaban, giving enoxaparin 1.5 mg/kg/d SQ for now Alzheimer dementia - frequent reorientation malnutrition - supplements VTE ppx - enoxaparin dispo - will need STR eventually after operative fixation In my clinical judgment, the patient requires continued inpatient hospitalization for the following reasons: IV ABX, operative fixation Total time managing care of this patient today: 40 minutes. Quality Stroke Does the patient have a stroke diagnosis?: No VTE Prior VTE?: No VTE Risk Level:: Medical - moderate - high VTE Device Contraindication: N/A - Device Ordered VTE Drug Contraindication: Treatment Not Indicated
[2024-01-24] MEDS: Enoxaparin Sodium 80 MG/0.8 ML SYRINGE 75 MG SUBCUT (13:12)
[2024-01-24] MEDS: Dextrose 5 % and 0.45 % NaCl 1,000 ML 80 ML IVCONT (14:10)
[2024-01-24 15:14] VITALS: BMI 19.0
--- NOTE | 2024-01-24 15:24 | MHC.CLN ---
NUTRITION CONSULT FOR MULTIPLE WOUNDS. DIET=REGULAR, PUREE WITH HONEY THICK LIQUIDS. 1:1 FEED. PO VARIABLE 25-75%. INCREASED NUTRITION NEEDS DUE TO MULTIPLE AREAS OF IMPAIRED SKIN. STAGE III TO COCCYX, DTI TO LEFT HEEL, STAGE I TO RIGHT HEEL. ADDING MAGIC CUP TID TO PROMOTE NUTRITIONAL INTAKE AND WOUND HEALING. SUPPLEMENT PROVIDES 870 KCALS, 27 G PROTEIN. PATIENT IS UNDER WEIGHT FOR HEIGHT WITH WEIGHT 83% OF IBW. FOLLOW FOR PO INTAKE, DIET TOLERANCE AND SKIN INTEGRITY. SEE CLINICAL NUTRITION ASSESSMENT 01/24/24.
[2024-01-24 15:27] VITALS: BP 123/62; PULSE 106; RESP 18; TEMP 36.8; O2SAT 91
--- NOTE | 2024-01-24 18:04 | MHC.SL.SWA ---
Speech Pathologist Impression:Risk of Aspiration, Oropharyngeal Dysphagia Risk of Aspiration Due to: History of Pneumonia Reduced Cognition Dysphasia Diet Status: No Change Liquid Consistency and Strategies for Safe Swallow: Liquid Intake Recommendation: Honey Thick Liquid Intake Strategies: Small Sips No Straws Liquids by Teaspoon Only Solid Food Consistency: Dietary Recommendations: Pureed (NDD1) Additional Modifications to Solid Foods: Immediate wet cough noted with trial of thin liquid by spoon. Moderate oropharyngeal dysphagia, characterized by munching pattern on purees, delayed swallow, and multiple swallow attempts. Recommend CONTINUE on PUREED (NDD1) diet and HONEY THICK liquids as ordered by MD, pills to be CRUSHED in PUREE. Patient will need 1:1 assistance and frequent orientation throughout feeding. Give patient small bites, watch for patient to swallow and check oral cavity before presenting more bites, liquids to be given by teaspoon only. Oral Medication Intake: Crushed with Puree Please contact the pharmacy regarding appropriate crushable or liquid drug formulations that are available whenever modified delivery is recommended. Compensatory Strategies and Precautions to be Taken for Safe Swallow: Sitting Upright (90 deg) No Straw Liquids from Spoon Small Bites and Sips Rate of Ingestion Change Oral Check Supervision While Eating and Drinking for Safe Swallow: Total Assistance (1:1) Swallowing Recommended Treatments: Compens. Strategy Educat. Recommendation for Speech: Inpatient Speech Therapy Comment: ALL AROUND GEAR MACHINE OPERATOR will continue to follow to monitor tolerance of modified diet and feeding needs, re-assess for potential upgrade if/when appropriate. Frequency/Duration: PRN M-F Date Range for Service Req: Timeline to reassess: Plastic Worker Clinican/Clinical Fellow: No Supervisory Statement: I have reviewed and agree with the student/clinical fellow's documentation: N/A Speech Language Pathologist: Eileen Emanuel M.A., CCC-ALL AROUND GEAR MACHINE OPERATOR
[2024-01-24 19:23] VITALS: BP 115/59; PULSE 85; RESP 16; TEMP 36.1; O2SAT 92
[2024-01-25] VITALS (9 sets, daily range): BP systolic 104–146; BP diastolic 56–79; PULSE 80–108; RESP 16–18; TEMP 36.3–37.1; O2SAT 91–97
[2024-01-25] MEDS: Ampicillin Sodium/Sulbactam Na 3 GM in 0.9 % Sodium Chloride 100 ML IV ×4 (02:42→21:24)
[2024-01-25] MEDS: Morphine Sulfate 2 MG/ML CARTRIDGE IVPUSH ×2 (03:40→09:27)
[2024-01-25] MEDS: Dextrose 5 % and 0.45 % NaCl 1,000 ML 80 ML IVCONT (05:24)
[2024-01-25 08:14] LABS: Hematocrit 25.5 % (42.0-52.0); Hemoglobin 8.3 g/dl (14.0-18.0); Mean Corpuscular HGB Conc 32.5 g/dl (31.0-36.0); Mean Corpuscular Hemoglobin 29.5 pg (27.0-33.0); Mean Corpuscular Volume 90.7 fL (80.0-98.0); Mean Platelet Volume 10.7 fL (9.4-12.4); Platelet Count 252 X10*3/uL (160-400); Red Blood Count 2.81 X10*6/uL (4.60-5.80); Red Cell Distribution Width 14.4 % (11.0-16.0); White Blood Count 6.8 X10*3/uL (4.8-10.8)
[2024-01-25 08:31] LABS: Anion Gap 9 (12-20); Blood Urea Nitrogen 11 mg/dL (9-16); Calcium 7.7 mg/dL (8.4-10.2); Carbon Dioxide 26 mmol/L (22-29); Chloride 106 mmol/L (96-108); Creatinine Clr Calc Pharmacy 75.4; Estimated Glomerular Filt Rate > 60; Glucose Random 99 mg/dL (60-115); Potassium 3.9 mmol/L (3.3-5.1); Sodium 137 mmol/L (135-145)
--- NOTE | 2024-01-25 10:21 | MHC.CM.PN ---
Spoke with Mary from [facility]. She provided a list of SNFs contracted with the program for STR stays. Referrals have been sent to the facilities. The Patient is scheduled for the OR 01/25 @ 9:40am. [facility] STR via BLS.
--- NOTE | 2024-01-25 11:42 | HO.PM.IMPN ---
Subjective Subjective Date of Service: 01/25/24 Interval History: seen and examined resting comfortably non verbal Review of Systems Negative except HPI/interval history. Physical Exam Vital Signs: Vital Signs: Last Vital Signs Temp 97.9 F 01/25/24 08:00 Pulse 108 H 01/25/24 08:00 Resp 16 01/25/24 08:00 BP 146/79 H 01/25/24 08:00 Pulse Ox 91 L 01/25/24 08:00 O2 Del Method Room Air 01/25/24 08:00 O2 Flow Rate 2 01/23/24 03:43 BMI result Body Mass Index 19.0 Const: Other: General - no acute distress, appears comfortable Cardiovascular - regular rate and rhythm, S1-S2 Lungs - normal respiratory effort, clear to auscultation bilaterally, no wheezing Abdomen - soft, nontender, no rebound or guarding Extremities - no edema bilaterally neuro - resting comfortably, non-verbal Objective Data Active Medications Acetaminophen (Acetaminophen 325 Mg Tablet) 650 mg PO Q6H PRN PRN Reason: Pain, Mild (Pain Scale 1-3), fever or headache Benzonatate (Benzonatate 100 Mg Capsule) 100 mg PO TID PRN PRN Reason: Cough Calcium Carbonate (Calcium Carbonate 750 Mg Tab.Chew) 750 mg PO Q4H PRN PRN Reason: Heartburn Enoxaparin Sodium (Enoxaparin Sodium 80 Mg/0.8 Ml Syringe) 75 mg SUBCUT Q24H [facility] Last Admin: 01/24/24 13:12 Dose: 75 mg Documented By: BARB Ampicillin Sodium/Sulbactam (Sodium 3 gm/ Sodium Chloride) 100 mls @ 200 mls/hr IV Q6H [facility] Last Infusion: 01/25/24 09:28 Dose: Infused Documented By: BARB Cefazolin Sodium/Dextrose (Ancef) 2 gm in 50 mls @ 100 mls/hr IV PREOP ONE Stop: 01/26/24 10:47 Magnesium Hydroxide (Milk Of Magnesia 30 Ml Oral.Susp) 30 ml PO DAILY PRN PRN Reason: Constipation Melatonin (Melatonin 3 Mg Tablet) 6 mg PO BEDTIME PRN PRN Reason: Insomnia Morphine Sulfate (Morphine Sulfate 2 Mg/Ml Cartridge) 2 mg IVPUSH Q4H PRN; Protocol PRN Reason: Pain, Severe (Pain Scale 7-10) Last Admin: 01/25/24 09:27 Dose: 2 mg Documented By: BARB Ondansetron HCl (Ondansetron Hcl 4 Mg/2 Ml Vial) 4 mg IVPUSH Q8H PRN PRN Reason: Nausea and Vomiting Sodium Chloride (0.9 % Sodium Chloride Flush 3 Ml Syringe) 3 ml IVFLUSH QSHIFT [facility] Last Admin: 01/25/24 08:52 Dose: Not Given Documented By: BARB Non-Admin Reason: IV Running Labs 01/25/24 07:54 01/25/24 07:54 Labs: Laboratory Results - last 24 hr 01/25/24 07:54 MCV 90.7 MCH 29.5 MCHC 32.5 RDW 14.4 Plt Count 252 MPV 10.7 Absolute Nucleated RBC 0.000 Nucleated RBC % (auto) 0.0 Anion Gap 9 L Estim Creat Clear Calc 75.4 Estimated GFR > 60 Random Glucose 99 Calcium 7.7 L Microbiology Microbiology Results: Microbiology 01/22/24 19:03 Blood Culture - Preliminary Blood - Venous No growth after 48 hours. 01/22/24 19:03 Blood Culture - Preliminary Blood - Venous No growth after 48 hours. Assessment and Plan (1) Fracture, intertrochanteric, right femur: Status: Acute Plan d3 83yo M with Alzheimer dementia, hx PE AC on rivaroxaban, BPH brought in with cough + R hip pain after multiple falls AHRF due to aspiration - weaned off O2; continue ampicillin-sulbactam started 01/20 T[employer] CURATIVE SPECIALIST evaluation done: puree solids + honey liquids R intertrochanteric femur fx, subacute - Ortho consulted. -cardiology consulted -- intermidate to high risk -plan for operative repair tomorrow (01/25); npo after midnight new-onset AF - TTE, Cardiology consultation appreciated rates largely in the 90s-100s -- will start lopressor 12.5mg as recommended by cardiology acute blood loss anemia - due to fx; T+S active; monitor H+H daily hx PE - hold rivaroxaban, giving enoxaparin 1.5 mg/kg/d SQ for now -- hold today in anticipation for surgery tomorrow Alzheimer dementia - frequent reorientation malnutrition - supplements VTE ppx - enoxaparin dispo - will need STR eventually after operative fixation In my clinical judgment, the patient requires continued inpatient hospitalization for the following reasons: IV ABX, operative fixation of hip Total time managing care of this patient today: 40 minutes. Quality Stroke Does the patient have a stroke diagnosis?: No VTE Prior VTE?: No VTE Risk Level:: Medical - moderate - high VTE Device Contraindication: N/A - Device Ordered VTE Drug Contraindication: Treatment Not Indicated
[2024-01-25] MEDS: Metoprolol Tartrate 12.5 MG HALFTAB PO ×2 (12:58→21:20)
[2024-01-25] MEDS: Milk of Magnesia 30 ML ORAL.SUSP PO (14:28)
--- NOTE | 2024-01-25 16:15 | MHC.CLN ---
F/U DIET=PUREE WITH NECTAR THICK LIQUIDS. MAGIC CUP SUPPLEMENT TID (870 KCALS, 27 G PROTEIN). ATE 100% AT LUNCH TODAY. QUALIFIES MODERATELY MALNOURISHED IN THE CONTEXT OF CHRONIC ILLNESS. MULTIPLE AREAS OF IMPAIRED SKIN. FOLLOW FOR DIET TOLERANCE, INTAKE AND SKIN INTEGRITY.
[2024-01-25] MEDS: 0.9 % Sodium Chloride Flush 3 ML SYRINGE IVFLUSH (21:23)
[2024-01-26] VITALS (13 sets, daily range): BP systolic 97–157; BP diastolic 43–85; PULSE 78–150; RESP 14–20; TEMP 36.7–37.6; O2SAT 92–99
[2024-01-26] MEDS: Ampicillin Sodium/Sulbactam Na 3 GM in 0.9 % Sodium Chloride 100 ML IV ×4 (03:03→21:13)
[2024-01-26] MEDS: Morphine Sulfate 2 MG/ML CARTRIDGE IVPUSH ×2 (05:52→12:45)
[2024-01-26 06:24] LABS: Hemoglobin 9.7 g/dl (14.0-18.0); Mean Corpuscular HGB Conc 33.4 g/dl (31.0-36.0); Mean Corpuscular Hemoglobin 29.9 pg (27.0-33.0); Mean Corpuscular Volume 89.5 fL (80.0-98.0); Mean Platelet Volume 10.5 fL (9.4-12.4); Platelet Count 282 X10*3/uL (160-400); Red Blood Count 3.24 X10*6/uL (4.60-5.80); Red Cell Distribution Width 14.3 % (11.0-16.0)
[2024-01-26 06:35] LABS: Anion Gap 11 (12-20); Blood Urea Nitrogen 10 mg/dL (9-16); Calcium 8.2 mg/dL (8.4-10.2); Carbon Dioxide 24 mmol/L (22-29); Chloride 106 mmol/L (96-108); Creatinine Clr Calc Pharmacy 79.7; Estimated Glomerular Filt Rate > 60; Glucose Random 80 mg/dL (60-115); Sodium 137 mmol/L (135-145)
[2024-01-26] MEDS: 0.9 % Sodium Chloride Flush 3 ML SYRINGE IVFLUSH ×3 (08:06→21:15)
--- NOTE | 2024-01-26 09:12 | HO.ANESPROP2 ---
[facility] Active Problems Active Problems: All Active Problems Afib (Acute) UTI (urinary tract infection) (Acute) Fracture, intertrochanteric, right femur (Acute) Pneumonia (Acute) Hypoxia (Acute) Past Medical History Medical History Anticoagulated Dementia Family History Family history of problems with anesthesia: No Surgical History History of Problems with Anesthesia: No Social History Social History Household Members: Unknown / Unable to assess Housing: Unknown / Unable to assess Do you presently have visiting nurse or other home services: No Alcohol intake: former Patient Tobacco Use Status: Tobacco use Unknown service: No Meds Allergies Allergy/AdvReac Type Severity Reaction Status Date / Time No Known Allergies Allergy Verified 01/21/24 13:50 Active Medications: Current Medications Acetaminophen (Acetaminophen 325 Mg Tablet) 650 mg PO Q6H PRN PRN Reason: Pain, Mild (Pain Scale 1-3), fever or headache Benzonatate (Benzonatate 100 Mg Capsule) 100 mg PO TID PRN PRN Reason: Cough Calcium Carbonate (Calcium Carbonate 750 Mg Tab.Chew) 750 mg PO Q4H PRN PRN Reason: Heartburn Enoxaparin Sodium (Enoxaparin Sodium 80 Mg/0.8 Ml Syringe) 75 mg SUBCUT Q24H [facility] Last Admin: 01/24/24 13:12 Dose: 75 mg Ampicillin Sodium/Sulbactam (Sodium 3 gm/ Sodium Chloride) 100 mls @ 200 mls/hr IV Q6H [facility] Last Infusion: 01/26/24 08:41 Dose: Infused Cefazolin Sodium/Dextrose (Ancef) 2 gm in 50 mls @ 100 mls/hr IV PREOP ONE Stop: 01/26/24 10:47 Magnesium Hydroxide (Milk Of Magnesia 30 Ml Oral.Susp) 30 ml PO DAILY PRN PRN Reason: Constipation Last Admin: 01/25/24 14:28 Dose: 30 ml Melatonin (Melatonin 3 Mg Tablet) 6 mg PO BEDTIME PRN PRN Reason: Insomnia Metoprolol Tartrate (Metoprolol Tartrate 12.5 Mg Halftab) 12.5 mg PO BID [facility]; Protocol Last Admin: 01/26/24 07:10 Dose: Not Given Morphine Sulfate (Morphine Sulfate 2 Mg/Ml Cartridge) 2 mg IVPUSH Q4H PRN; Protocol PRN Reason: Pain, Severe (Pain Scale 7-10) Last Admin: 01/26/24 05:52 Dose: 2 mg Ondansetron HCl (Ondansetron Hcl 4 Mg/2 Ml Vial) 4 mg IVPUSH Q8H PRN PRN Reason: Nausea and Vomiting Sodium Chloride (0.9 % Sodium Chloride Flush 3 Ml Syringe) [facility] Last Admin: 01/26/24 08:06 Dose: 3 ml Home Medications ?Medication ?Instructions ?Recorded ?Confirmed ?Last Taken ?Type acetaminophen 500 mg tablet 500 mg PO DAILY PRN Pain 01/21/24 01/21/24 Unknown History multivitamin 1 tab PO DAILY 01/21/24 01/21/24 Unknown History rivaroxaban 20 mg tablet (Xarelto) 20 mg PO DAILY@1700 01/21/24 01/21/24 Unknown History tamsulosin 0.4 mg capsule 0.4 mg PO DAILY 01/21/24 01/21/24 Unknown History Exam Height,Weight and Vital Signs: Height 5 ft 6 in Weight 53.4 kg Last Vital Signs Temp 98.3 F 01/26/24 07:45 Pulse 100 01/26/24 07:45 Resp 17 01/26/24 07:45 BP 113/57 L 01/26/24 07:45 Pulse Ox 95 01/26/24 07:45 O2 Del Method Room Air 01/26/24 07:45 O2 Flow Rate 2 01/23/24 03:43 Pertinent Lab Results Pertinent Lab Results: Laboratory Tests 01/21/24 01/21/24 01/21/24 15:03 15:04 15:59 WBC 10.1 RBC 3.22 L D Hgb 9.6 L D Hct 29.3 L D MCV 91.0 MCH 29.8 MCHC 32.8 RDW 14.3 Plt Count 244 D MPV 10.9 Immature Gran % (Auto) 4.6 H Neut % (Auto) 78.4 H Lymph % (Auto) 8.0 L [place] % (Auto) 6.4 Eos % (Auto) 2.1 Baso % (Auto) 0.5 Lymph # (Auto) 0.8 L [place] # (Auto) 0.7 Eos # (Auto) 0.2 Baso # (Auto) 0.1 Abs Immat Gran (auto) 0.46 H Absolute Neuts (auto) 7.9 Absolute Nucleated RBC 0.030 H Nucleated RBC % (auto) 0.3 H PT 16.0 H D INR 1.3 H Sodium 139 Potassium 4.4 Chloride 105 Carbon Dioxide 26 Anion Gap 12 BUN 18 H Creatinine 0.60 Estim Creat Clear Calc 65.3 Estimated GFR > 60 Random Glucose 123 H Lactic Acid Lactic Acid F/U @ 2Hr Calcium 8.8 Magnesium 2.1 Total Bilirubin 1.0 Direct Bilirubin 0.4 AST 43 H ALT 35 Alkaline Phosphatase 116 Troponin I High Sens 23.1 D Total Protein 6.0 L Albumin 2.4 L Lipase 24 Procalcitonin Urine Color Dark Yellow Urine Appearance Cloudy Urine pH 5.5 Ur Specific [place] >= 1.030 H Urine Protein Trace Urine Glucose (UA) Negative Urine Ketones Trace Urine Blood Negative Urine Nitrite Positive H Ur Leukocyte Esterase Trace H Urine RBC 0-2 Urine WBC 0-5 Ur Squamous Epith Cells 3-5 Urine Bacteria None Seen Hyaline Casts 0-2 Stool Occult Blood COVID-19 (CATE) Negative COVID-19 Clin Com See Note Blood Type Antibody Screen Crossmatch 01/21/24 01/21/24 01/22/24 16:44 21:58 09:37 WBC 15.9 H RBC 2.99 L Hgb 8.8 L Hct 27.7 L MCV 92.6 MCH 29.4 MCHC 31.8 RDW 14.5 Plt Count 236 MPV 11.2 Immature Gran % (Auto) 2.4 H Neut % (Auto) 86.6 H Lymph % (Auto) 5.3 L [place] % (Auto) 4.8 Eos % (Auto) 0.6 Baso % (Auto) 0.3 Lymph # (Auto) 0.8 L [place] # (Auto) 0.8 Eos # (Auto) 0.1 Baso # (Auto) 0.1 Abs Immat Gran (auto) 0.39 H Absolute Neuts (auto) 13.8 H Absolute Nucleated RBC 0.020 H Nucleated RBC % (auto) 0.1 PT INR Sodium 140 Potassium 4.4 Chloride 109 H Carbon Dioxide 24 Anion Gap 11 L BUN 16 Creatinine 0.57 Estim Creat Clear Calc 68.7 Estimated GFR > 60 Random Glucose 81 Lactic Acid Lactic Acid F/U @ 2Hr Calcium 8.4 Magnesium Total Bilirubin Direct Bilirubin AST ALT Alkaline Phosphatase Troponin I High Sens 34.7 D Total Protein Albumin Lipase Procalcitonin 0.12 Urine Color Urine Appearance Urine pH Ur Specific [place] Urine Protein Urine Glucose (UA) Urine Ketones Urine Blood Urine Nitrite Ur Leukocyte Esterase Urine RBC Urine WBC Ur Squamous Epith Cells Urine Bacteria Hyaline Casts Stool Occult Blood NEGATIVE COVID-19 (CATE) COVID-19 Clin Com Blood Type A Positive Antibody Screen NEGATIVE Crossmatch 01/22/24 01/22/24 01/23/24 19:02 21:56 06:18 WBC 9.7 RBC 2.69 L Hgb 7.9 L Hct 24.6 L MCV 91.4 MCH 29.4 MCHC 32.1 RDW 14.3 Plt Count 232 MPV 10.6 Immature Gran % (Auto) Neut % (Auto) Lymph % (Auto) [place] % (Auto) Eos % (Auto) Baso % (Auto) Lymph # (Auto) [place] # (Auto) Eos # (Auto) Baso # (Auto) Abs Immat Gran (auto) Absolute Neuts (auto) Absolute Nucleated RBC 0.000 Nucleated RBC % (auto) 0.0 PT INR Sodium 137 Potassium 3.7 Chloride 107 Carbon Dioxide 24 Anion Gap 10 L BUN 13 Creatinine 0.49 L Estim Creat Clear Calc 86.2 Estimated GFR > 60 Random Glucose 107 Lactic Acid 2.2 H* Lactic Acid F/U @ 2Hr 1.1 Calcium 8.1 L Magnesium 2.0 Total Bilirubin Direct Bilirubin AST ALT Alkaline Phosphatase Troponin I High Sens Total Protein Albumin Lipase Procalcitonin Urine Color Urine Appearance Urine pH Ur Specific [place] Urine Protein Urine Glucose (UA) Urine Ketones Urine Blood Urine Nitrite Ur Leukocyte Esterase Urine RBC Urine WBC Ur Squamous Epith Cells Urine Bacteria Hyaline Casts Stool Occult Blood COVID-19 (CATE) COVID-19 Clin Com Blood Type Antibody Screen Crossmatch 01/24/24 01/25/24 01/25/24 06:17 07:54 14:18 WBC 6.8 6.8 RBC 2.91 L 2.81 L Hgb 8.6 L 8.3 L Hct 26.2 L 25.5 L MCV 90.0 90.7 MCH 29.6 29.5 MCHC 32.8 32.5 RDW 14.3 14.4 Plt Count 253 252 MPV 11.0 10.7 Immature Gran % (Auto) Neut % (Auto) Lymph % (Auto) [place] % (Auto) Eos % (Auto) Baso % (Auto) Lymph # (Auto) [place] # (Auto) Eos # (Auto) Baso # (Auto) Abs Immat Gran (auto) Absolute Neuts (auto) Absolute Nucleated RBC 0.000 0.000 Nucleated RBC % (auto) 0.0 0.0 PT INR Sodium 137 137 Potassium 3.9 3.9 Chloride 106 106 Carbon Dioxide 26 26 Anion Gap 9 L 9 L BUN 14 11 Creatinine 0.53 0.56 Estim Creat Clear Calc 79.7 75.4 Estimated GFR > 60 > 60 Random Glucose 96 99 Lactic Acid Lactic Acid F/U @ 2Hr Calcium 7.8 L 7.7 L Magnesium Total Bilirubin Direct Bilirubin AST ALT Alkaline Phosphatase Troponin I High Sens Total Protein Albumin Lipase Procalcitonin 0.07 Urine Color Urine Appearance Urine pH Ur Specific [place] Urine Protein Urine Glucose (UA) Urine Ketones Urine Blood Urine Nitrite Ur Leukocyte Esterase Urine RBC Urine WBC Ur Squamous Epith Cells Urine Bacteria Hyaline Casts Stool Occult Blood COVID-19 (CATE) COVID-19 Clin Com Blood Type A Positive Antibody Screen NEGATIVE Crossmatch See Detail 01/26/24 05:48 WBC 7.0 RBC 3.24 L Hgb 9.7 L Hct 29.0 L MCV 89.5 MCH 29.9 MCHC 33.4 RDW 14.3 Plt Count 282 MPV 10.5 Immature Gran % (Auto) Neut % (Auto) Lymph % (Auto) [place] % (Auto) Eos % (Auto) Baso % (Auto) Lymph # (Auto) [place] # (Auto) Eos # (Auto) Baso # (Auto) Abs Immat Gran (auto) Absolute Neuts (auto) Absolute Nucleated RBC 0.000 Nucleated RBC % (auto) 0.0 PT INR Sodium 137 Potassium 4.0 Chloride 106 Carbon Dioxide 24 Anion Gap 11 L BUN 10 Creatinine 0.53 Estim Creat Clear Calc 79.7 Estimated GFR > 60 Random Glucose 80 Lactic Acid Lactic Acid F/U @ 2Hr Calcium 8.2 L D Magnesium Total Bilirubin Direct Bilirubin AST ALT Alkaline Phosphatase Troponin I High Sens Total Protein Albumin Lipase Procalcitonin Urine Color Urine Appearance Urine pH Ur Specific [place] Urine Protein Urine Glucose (UA) Urine Ketones Urine Blood Urine Nitrite Ur Leukocyte Esterase Urine RBC Urine WBC Ur Squamous Epith Cells Urine Bacteria Hyaline Casts Stool Occult Blood COVID-19 (CATE) COVID-19 Clin Com Blood Type Antibody Screen Crossmatch Airway Mallampati Class: II (edentulous) TM Dist: >3cm Neck ROM: Full Heart: irreg Lungs: cta, not taking deep breaths Assessment and Plan Assessment Anesthesia Assessment: Anesthesia Plan Discussed and Chart Reviewed Final Anesthetic Review Family History of Problems with Anesthesia: No History of Problems with Anesthesia: No NPO: Yes ASA Class: III Final Preanesthetic Review: No Changes in Pt Med Stat, Meds/Allgs Chart Reviewed and Consent Obtained/Reviewed Patient Risk: Intermediate Procedure Risk: Low Anesthetic Plan Anesthetic Plan: GA Disposition: Standard PACU
--- NOTE | 2024-01-26 09:13 | MHC.SHP ---
Pre-Procedural Eval Section A - 24 Hr Update-Section A only Date of Service: 01/26/24 The patient is an INPATIENT: Yes Changes since office visit: No Cold of Flu in the past 2 weeks, No New Medical Problems, No Changes in Medication and No Patient answered all questions The patient has been examined within 24 hours of the surgical procedure. The History & Physical has been completed within 30 days and I have reviewed it.: No Section B - Complete if H&P > 30 days Chief Complaint: Cough, Hip pain Allergies: Allergies Allergy/AdvReac Type Severity Reaction Status Date / Time No Known Allergies Allergy Verified 01/21/24 13:50 Plan I have reviewed the history and physical and performed a pertinent physical examination on my patient. No changes have occurred unless specified. Time Spent With Patient Time: Total time managing care of this patient today ____ minutes.
--- NOTE | 2024-01-26 10:52 | PM.OP ---
Brief Operative Note Date of Service: 01/26/24 Pre-op diagnosis: Right IT fx Post-op diagnosis: same Procedure: IMN right hip Implants: [place] [id number] 125 deg imn with 95mm hip screw and 35mm distal interlock Surgeon: Will Elise MD Anesthesia: GLMA and local Was an Gauge Controller used for this Procedure?: No Estimated blood loss (mL): 150 IV fluids (mL): 800 Pathology: none sent Condition: stable Disposition: PACU
--- NOTE | 2024-01-26 12:37 | MHC.CM.PN ---
Patient scheduled for OR today surgical intervention for Hip Fx. Per MD rounds, discharge is anticipated Wednesday. Patient has many STRs following for discharge. Clinical information has been sent to the facilities. DP STR via BLS.
--- NOTE | 2024-01-26 13:49 | P.PNIM_ITS ---
Subjective Subjective Date of Service: 01/26/24 Interval History: back from OR NAD; unable to obtain ROS due to advanced dementia Review of Systems Review of Systems: Yes Unobtainable due to mental status Physical Exam 2 Vital Signs: Vital Signs: Last Vital Signs Temp 98.1 F 01/26/24 11:30 Pulse 83 01/26/24 11:45 Resp 18 01/26/24 11:45 BP 97/43 L 01/26/24 11:45 Pulse Ox 92 01/26/24 11:45 O2 Del Method Nasal Cannula 01/26/24 11:45 O2 Flow Rate 3 01/26/24 11:45 Oxygen Flow Rate 3.0 01/26/24 11:28 BMI result Body Mass Index 19.0 Gen: in no acute distress HEENT: sclera anicteric, moist mucus membranes Neck: supple Lungs: clear to auscultation bilaterally Heart: irregular, no murmurs Abd: soft, non-tender, non-distended Ext: no edema, RLE with hip incisions with dry dressings Skin: warm/well-perfused Neuro: alert, unable to assess orientation, moves all extremities Psych: impaired insight Objective Data Active Medications Acetaminophen (Acetaminophen 325 Mg Tablet) 650 mg PO Q6H PRN PRN Reason: Pain, Mild (Pain Scale 1-3), fever or headache Benzonatate (Benzonatate 100 Mg Capsule) 100 mg PO TID PRN PRN Reason: Cough Calcium Carbonate (Calcium Carbonate 750 Mg Tab.Chew) 750 mg PO Q4H PRN PRN Reason: Heartburn Enoxaparin Sodium (Enoxaparin Sodium 80 Mg/0.8 Ml Syringe) 75 mg SUBCUT Q24H [facility] Last Admin: 01/24/24 13:12 Dose: 75 mg Documented By: BARB Fentanyl (Fentanyl Citrate/Pf 100 Mcg/2 Ml Vial) 25 mcg IVPUSH Q5M PRN PRN Reason: Pain, Moderate to Severe (Pain Scale 4-10) Stop: 01/26/24 17:29 Ampicillin Sodium/Sulbactam (Sodium 3 gm/ Sodium Chloride) 100 mls @ 200 mls/hr IV Q6H [facility] Last Infusion: 01/26/24 08:41 Dose: Infused Documented By: JULISSA Cefazolin Sodium/Dextrose (Ancef) 2 gm in 50 mls @ 100 mls/hr IV POSTOP [place] Magnesium Hydroxide (Milk Of Magnesia 30 Ml Oral.Susp) 30 ml PO DAILY PRN PRN Reason: Constipation Last Admin: 01/25/24 14:28 Dose: 30 ml Documented By: BARB Melatonin (Melatonin 3 Mg Tablet) 6 mg PO BEDTIME PRN PRN Reason: Insomnia Metoprolol Tartrate (Metoprolol Tartrate 12.5 Mg Halftab) 12.5 mg PO BID [facility]; Protocol Last Admin: 01/26/24 07:10 Dose: Not Given Documented By: JULISSA Non-Admin Reason: NPO Morphine Sulfate (Morphine Sulfate 2 Mg/Ml Cartridge) 2 mg IVPUSH Q4H PRN; Protocol PRN Reason: Pain, Severe (Pain Scale 7-10) Last Admin: 01/26/24 12:45 Dose: 2 mg Documented By: JULISSA Ondansetron HCl (Ondansetron Hcl 4 Mg/2 Ml Vial) 4 mg IVPUSH Q8H PRN PRN Reason: Nausea and Vomiting Sodium Chloride (0.9 % Sodium Chloride Flush 3 Ml Syringe) 3 ml IVFLUSH QSHIFT [facility] Last Admin: 01/26/24 08:06 Dose: 3 ml Documented By: JULISSA Labs 01/26/24 05:48 01/26/24 05:48 Labs: Laboratory Results - last 24 hr 01/25/24 01/26/24 14:18 05:48 MCV 89.5 MCH 29.9 MCHC 33.4 RDW 14.3 Plt Count 282 MPV 10.5 Absolute Nucleated RBC 0.000 Nucleated RBC % (auto) 0.0 Anion Gap 11 L Estim Creat Clear Calc 79.7 Estimated GFR > 60 Random Glucose 80 Calcium 8.2 L D Blood Type A Positive Antibody Screen NEGATIVE Crossmatch See Detail Assessment and Plan (1) Fracture, intertrochanteric, right femur: Status: Acute Plan d4 83yo M with Alzheimer dementia, hx PE AC on rivaroxaban, BPH brought in with cough + R hip pain after multiple falls AHRF due to aspiration - weaned off O2; continue ampicillin-sulbactam started 01/20, end date 01/27 - TWISTER HAND evaluation done: puree solids + honey liquids R intertrochanteric femur fx, subacute - Cardiology consulted: intermediate to high risk - Ortho consulted: IMN done today; then PT new-onset AF - TTE 01/24/24: 1. Normal LV ejection fraction of 55-60% 2. Moderately dilated left atrium 3. Normal cardiac valvular Doppler 4. Small pericardial effusion more prominent near the left ventricle - Cardiology consultation appreciated, started on metoprolol tartrate - resume rivaroxaban when OK with Orthopedics; was on enoxaparin preop acute blood loss anemia - due to fracture; T+S active; transfused 1u pRBCs yesterday with appropriate response in H+H; continue to monitor hx PE - hold rivaroxaban; got enoxaparin 1.5 mg/kg/d SQ preop; held perioperatively; resume when OK with Ortho Alzheimer dementia - frequent reorientation malnutrition - supplements VTE ppx - enoxaparin -> rivaroxaban dispo - will need STR eventually after operative fixation In my clinical judgment, the patient requires continued inpatient hospitalization for the following reasons: IV ABX, postop care Total time managing care of this patient today: 40 minutes. Quality Stroke Does the patient have a stroke diagnosis?: No VTE Prior VTE?: No VTE Risk Level:: Medical - moderate - high VTE Device Contraindication: N/A - Device Ordered VTE Drug Contraindication: Treatment Not Indicated
--- NOTE | 2024-01-26 14:48 | MHC.SLORD ---
Speech Language Pathology Order Status: Pt NPO for procedure during EYEDOTTER inpatient hours. EYEDOTTER to f/u to monitor toleration of diet and upgrade if possible on 01/26 in morning.
--- NOTE | 2024-01-26 15:45 | HO.WOUND ---
Wound Consult: Initial 83yr old?[place] [facility] [place] See progress notes and H&P for detailed history.? Wound consult placed for coccyx wound and bilateral heels.? Recommendations: 1. Turn and Reposition every 2 hours and as needed for patient comfort.? Use pillows or wedges to support off loading positions. 2. Off Load all bony prominences with use of pillows and heel boots if needed.? Apply Preventative foams where needed. ? 3. Monitor for incontinence and moisture control, use barrier creams when needed for prevention and treatment. 4. Provide adequate and supplemental nutrition.? 5. Order or Continue low air loss mattress. 6. When applicable maintain blood glucose levels per Providers order. 7. Bilateral Heels - Off Load Pressure - Apply foam dressing peel back and assess change every 5 days and PRN. 8. Sacrum - Off Load Pressure? - Cleanse with PH balance spray or wipes, pat dry. ?Apply thin layer of Triad to wound bed. Do not remove all of paste between applications as this may cause further skin damage.? Cover with foam dressing to aid in off loading and protection from friction. Change every other day and PRN. Re-consult wound care Nurse for wound deterioration or wound changes. Sacrum Etiology: Unstageable Pressure injury ??Present on Admission Wound Bed: adherent yellow slough Drainage / Odor: unable to assess at this time Edges: irregular? Tonja wound: ? MASD Goals of Treatment: Off Load Pressure and protect from moisture and friction ? Right Heel Etiology: ?DTI ?Present on Admission Wound Bed: dark purple intact nonblanchable tissue Drainage / Odor: None Edges: ? irregular Goals of Treatment: ? Off Load Pressure DTI to L heel Etiology: ?DTI ?Present on Admission Wound Bed: purple intact nonblanchable tissue Drainage / Odor: None Edges: ? irregular Goals of Treatment: ? Off Load Pressure Initialized on 01/22/24 19:17 - END OF NOTE
[2024-01-26] MEDS: Metoprolol Tartrate 12.5 MG HALFTAB PO (21:13)
[2024-01-27] VITALS (9 sets, daily range): BP systolic 103–137; BP diastolic 56–86; PULSE 81–100; RESP 16–18; TEMP 36.5–37.3; O2SAT 92–95
[2024-01-27] MEDS: Ampicillin Sodium/Sulbactam Na 3 GM in 0.9 % Sodium Chloride 100 ML IV ×4 (03:10→19:26)
--- NOTE | 2024-01-27 07:38 | PM.PNORT ---
Subjective Subjective Date of Service: 01/27/24 Principal diagnosis: Atrial fibrillation Interval history: Postop day 1 status post right IM nail Patient unable to provide much history due to dementia However, he does confirm that he does have mild pain in his right hip Patient appears clinically stable Physical Exam Vital Signs: Vital Signs: Last Vital Signs Temp 98.2 F 01/27/24 04:00 Pulse 88 01/27/24 04:00 Resp 16 01/27/24 04:00 BP 103/57 L 01/27/24 04:00 Pulse Ox 94 01/27/24 04:00 O2 Del Method Room Air 01/27/24 04:00 O2 Flow Rate 2 01/27/24 00:00 Oxygen Flow Rate 3.0 01/26/24 11:28 BMI result Body Mass Index 19.0 Extrem: Other: On inspection, dressing is in place, clean, dry, intact No erythema, streaking, evidence of infection noted No saturation of dressing noted Compartments soft, nontender Patient is able to plantar flex and dorsiflex foot without difficulty Distal sensation intact Capillary refill brisk Procedures Date of Service Date of Service: 01/27/24 Progress Note: A&P Assessment and plan (1) Fracture, intertrochanteric, right femur: Status: Acute Plan 1. Intertrochanteric fracture of left hip status post IM nail placement DOS 01/26/2024 Patient appears to be recovering well postoperatively Restart anticoagulation 24 hours after surgery Plan is to work with PT today/tomorrow to assess discharge disposition Continue with all other recommendations per Medicine Time Spent With Patient Time: Total time managing care of this patient today ____ minutes. Quality Stroke Does the patient have a stroke diagnosis?: No VTE Prior VTE?: No VTE Risk Level:: Medical - moderate - high VTE Device Contraindication: N/A - Device Ordered VTE Drug Contraindication: Treatment Not Indicated
--- NOTE | 2024-01-27 07:44 | HO.POSTANES ---
Post Anesthesia Evaluation Post Anesthesia Evaluation Date of Service: 01/27/24 Vital Signs: Vital Signs Temp Pulse Resp BP Pulse Ox O2 Del Method O2 Flow Rate 01/27/24 04:00 98.2 F 88 16 103/57 L 94 Room Air 01/27/24 00:00 99.2 F 94 18 121/67 95 Nasal Cannula 2 Anesthesia: General Endotracheal-GETA Mental Status: Awake Pain Control: Satisfactory Nausea/Vomiting: None Hydration: Adequate Anesthesia-Related Issues: No Anes. Related Issues
[2024-01-27 08:00] LABS: Hematocrit 28.6 % (42.0-52.0); Hemoglobin 9.5 g/dl (14.0-18.0); Mean Corpuscular HGB Conc 33.2 g/dl (31.0-36.0); Mean Corpuscular Hemoglobin 29.7 pg (27.0-33.0); Mean Corpuscular Volume 89.4 fL (80.0-98.0); Mean Platelet Volume 10.4 fL (9.4-12.4); Platelet Count 330 X10*3/uL (160-400); Red Cell Distribution Width 14.4 % (11.0-16.0); White Blood Count 9.1 X10*3/uL (4.8-10.8)
[2024-01-27 08:10] LABS: Anion Gap 11 (12-20); Blood Urea Nitrogen 15 mg/dL (9-16); Calcium 8.2 mg/dL (8.4-10.2); Carbon Dioxide 26 mmol/L (22-29); Chloride 105 mmol/L (96-108); Creatinine Clr Calc Pharmacy 76.8; Estimated Glomerular Filt Rate > 60; Glucose Random 94 mg/dL (60-115); Potassium 4.1 mmol/L (3.3-5.1); Sodium 138 mmol/L (135-145)
[2024-01-27] MEDS: oxyCODONE HCl Immed Release 5 MG TABLET PO ×2 (08:49→19:26)
[2024-01-27] MEDS: 0.9 % Sodium Chloride Flush 3 ML SYRINGE IVFLUSH ×2 (08:52→17:05)
--- NOTE | 2024-01-27 11:21 | HO.PM.IMPN ---
Subjective Subjective Date of Service: 01/27/24 Interval History: poor historian due to dementia but does c/o some R hip pain no dyspnea or cough or chest pain Review of Systems Review of Systems: Yes all other systems are reviewed and are negative Physical Exam Vital Signs: Vital Signs: Last Vital Signs Temp 97.7 F 01/27/24 07:45 Pulse 90 01/27/24 08:53 Resp 16 01/27/24 07:45 BP 113/56 L 01/27/24 08:53 Pulse Ox 92 01/27/24 07:45 O2 Del Method Room Air 01/27/24 07:45 O2 Flow Rate 2 01/27/24 00:00 Oxygen Flow Rate 3.0 01/26/24 11:28 BMI result Body Mass Index 19.0 Gen: in no acute distress HEENT: sclera anicteric, moist mucus membranes Neck: supple Lungs: clear to auscultation bilaterally Heart: irregular, no murmurs Abd: soft, non-tender, non-distended Ext: no edema, RLE with hip incisions with dry dressings Skin: warm/well-perfused Neuro: alert, unable to assess orientation, moves all extremities Psych: impaired insight Objective Data Active Medications Acetaminophen (Acetaminophen 325 Mg Tablet) 650 mg PO Q6H PRN PRN Reason: Pain, Mild (Pain Scale 1-3), fever or headache Benzonatate (Benzonatate 100 Mg Capsule) 100 mg PO TID PRN PRN Reason: Cough Calcium Carbonate (Calcium Carbonate 750 Mg Tab.Chew) 750 mg PO Q4H PRN PRN Reason: Heartburn Ampicillin Sodium/Sulbactam (Sodium 3 gm/ Sodium Chloride) 100 mls @ 200 mls/hr IV Q6H [facility] Last Infusion: 01/27/24 09:19 Dose: Infused Documented By: KOLBY Cefazolin Sodium/Dextrose (Ancef) 2 gm in 50 mls @ 100 mls/hr IV POSTOP [facility] Magnesium Hydroxide (Milk Of Magnesia 30 Ml Oral.Susp) 30 ml PO DAILY PRN PRN Reason: Constipation Last Admin: 01/25/24 14:28 Dose: 30 ml Documented By: BARB Melatonin (Melatonin 3 Mg Tablet) 6 mg PO BEDTIME PRN PRN Reason: Insomnia Metoprolol Tartrate (Metoprolol Tartrate 12.5 Mg Halftab) 12.5 mg PO BID [facility]; Protocol Last Admin: 01/27/24 08:52 Dose: Not Given Documented By: KOLBY Non-Admin Reason: held for BP 113/56 Ondansetron HCl (Ondansetron Hcl 4 Mg/2 Ml Vial) 4 mg IVPUSH Q8H PRN PRN Reason: Nausea and Vomiting Oxycodone HCl (Oxycodone Hcl Immed Release 5 Mg Tablet) 5 mg PO Q4H PRN PRN Reason: Pain, Severe (Pain Scale 7-10) Last Admin: 01/27/24 08:49 Dose: 5 mg Documented By: KOLBY Rivaroxaban (Rivaroxaban 20 Mg Tablet) 20 mg PO DAILY@1700 ESTEBAN Sodium Chloride (0.9 % Sodium Chloride Flush 3 Ml Syringe) 3 ml IVFLUSH QSHIFT ESTEBAN Last Admin: 01/27/24 08:52 Dose: 3 ml Documented By: KOLBY Labs 01/27/24 06:46 01/27/24 06:46 Labs: Laboratory Results - last 24 hr 01/27/24 06:46 MCV 89.4 MCH 29.7 MCHC 33.2 RDW 14.4 Plt Count 330 MPV 10.4 Absolute Nucleated RBC 0.000 Nucleated RBC % (auto) 0.0 Anion Gap 11 L Estim Creat Clear Calc 76.8 Estimated GFR > 60 Random Glucose 94 Calcium 8.2 L Magnesium 2.0 Assessment and Plan (1) Fracture, intertrochanteric, right femur: Status: Acute Plan d5 83yo M with Alzheimer dementia, hx PE AC on rivaroxaban, BPH brought in with cough + R hip pain after multiple falls AHRF due to aspiration - weaned off O2; continue ampicillin-sulbactam started 01/20, end date 01/27 - [facility] evaluation done: puree solids + honey liquids R intertrochanteric femur fx, subacute - Cardiology consulted: intermediate to high risk - Ortho consulted: IMN done 01/25; PT evaluation/treatment new-onset AF - TTE 01/24/24: 1. Normal LV ejection fraction of 55-60% 2. Moderately dilated left atrium 3. Normal cardiac valvular Doppler 4. Small pericardial effusion more prominent near the left ventricle - Cardiology consultation appreciated, started on metoprolol tartrate - resume rivaroxaban today; was on enoxaparin preop acute blood loss anemia - due to fracture; T+S active; transfused 1u pRBCs 01/24 with appropriate response in H+H; continue to monitor hx PE - held rivaroxaban and got enoxaparin 1.5 mg/kg/d SQ preop; resume rivaroxaban today Alzheimer dementia - frequent reorientation malnutrition - supplements VTE ppx - enoxaparin -> rivaroxaban dispo - STR vs 21/12 care, PT determining In my clinical judgment, the patient requires continued inpatient hospitalization for the following reasons: postop care Total time managing care of this patient today: 35 minutes. Quality Stroke Does the patient have a stroke diagnosis?: No VTE Prior VTE?: No VTE Risk Level:: Medical - moderate - high VTE Device Contraindication: N/A - Device Ordered VTE Drug Contraindication: Treatment Not Indicated
--- NOTE | 2024-01-27 12:38 | MHC.CLN ---
F/U DIET=PUREE WITH NECTAR THICK LIQUIDS. MAGIC CUP SUPPLEMENT TID (870 KCALS, 27 G PROTEIN). VARIABLE INTAKE. SKIN WITH UNSTAGEABLE AREA TO SACRUM AND DTI BILATERAL HEELS. SUPPLEMENT APPROPRIATE TO PROVIDE ADDITIONAL NUTRITION FOR WOUND HEALING. FOLLOW FOR DIET TOLERANCE, INTAKE AND SKIN INTEGRITY.
--- NOTE | 2024-01-27 12:41 | MHC.SL.SWA ---
Speech Pathologist Impression: Risk of Aspiration Due to: History of Pneumonia Reduced Cognition Dysphasia Diet Status: Recommend UPGRADE liquids to [place] Thick, continue on Puree (NDD2), pills crushed in puree. Patient noted to tolerate liquids by tsp and controlled straw sip. Liquid Consistency and Strategies for Safe Swallow: Liquid Intake Recommendation: [place] Thick Liquid Intake Strategies: Small Sips Solid Food Consistency: Dietary Recommendations: Pureed (NDD1) Additional Modifications to Solid Foods: blend in sauces/gravies. Liquids by tsp or controlled sraw sip. Oral Medication Intake: Crushed with Puree Please contact the pharmacy regarding appropriate crushable or liquid drug formulations that are available whenever modified delivery is recommended. Compensatory Strategies and Precautions to be Taken for Safe Swallow: Sitting Upright (90 deg) Liquids from Spoon Small Bites and Sips Alternate Liquids/Solids Rate of Ingestion Change Supervision While Eating and Drinking for Safe Swallow: Total Assistance (1:1) Foods to Avoid: Mixed consistencies Swallowing Recommended Treatments: Compens. Strategy Educat. Recommendation for Speech: Inpatient Speech Therapy Comment: HR MANAGER contacted by RD secondary to competing liquid recommendations in charting. HR MANAGER reviewed, noted on TUES covering HR MANAGER recommended liquid upgrade to NT, had not made adjustment in diet orders. HR MANAGER repeat assessed patient on this date to confirm safety of upgrade recommendation. Patient took NT liquid by tsp, cup sip and straw sip ( indicated this is typical way she givese liquids at home). Patient tolerated well in all conditions, no clinical signs of aspiration. Discussed with products available in pharmacies for thickening liquids, as patient will likely continue to need at discharge. HR MANAGER adjusted diet order to reflect recommended NT liquid. Frequency/Duration: PRN M-F Date Range for Service Req: Timeline to reassess: Welder Machine Operator Clinican/Clinical Fellow: No Supervisory Statement: I have reviewed and agree with the student/clinical fellow's documentation: N/A Speech Language Pathologist: Eileen Emanuel M.A., CCC-HR MANAGER
--- NOTE | 2024-01-27 13:16 | MHC.CM.PN ---
Addendum entered by Jazmin Hawkins 01/27/24 14:52: A referral has been sent to [facility] for SN+PT. Request for resumption of services sent. Original Note: Met with in patients room #376. A asl interpreter was used for a conversation re DP. Patient with dementia does not follow commands. , Cinthya plans to take him home with services. [facility] is the patients PCP and Insurance. They will provide home services.They contract with, [facility]; which provided services prior to admit. The Dr has been informed that the [facility] program will need paper scripts for all meds at discharge. Contact at [facility] is Mary [phone] Main# [phone] [facility] FAX [phone]. DC summary + scripts need to be faxed to [facility]. Meds need approval prior to being filled by the Pharmacy. Patient will transport via [facility] home.
[2024-01-27] MEDS: Metoprolol Tartrate 12.5 MG HALFTAB PO ×2 (13:22→19:26)
[2024-01-27] MEDS: Rivaroxaban 20 MG TABLET PO (17:06)
--- NOTE | 2024-01-27 17:24 | PC.NURSE ---
Pt had 1 large incontinent void after FC removal this am, post void residual 24ML.
[2024-01-28] MEDS: 0.9 % Sodium Chloride Flush 3 ML SYRINGE IVFLUSH ×3 (00:15→15:23)
[2024-01-28] MEDS: Ampicillin Sodium/Sulbactam Na 3 GM in 0.9 % Sodium Chloride 100 ML IV ×3 (03:21→15:23)
[2024-01-28 04:00] VITALS: BP 121/67; PULSE 102; RESP 18; TEMP 37.2; O2SAT 93
[2024-01-28 07:46] VITALS: BP 125/60; PULSE 88; RESP 17; TEMP 36.7; O2SAT 94
--- NOTE | 2024-01-28 08:31 | PM.PNORT ---
Subjective Subjective Date of Service: 01/28/24 Principal diagnosis: hip fx Interval history: Postop day 2 status post right IM nail Poor historian due to dementia Resting comfortably in bed Patient appears clinically stable Physical Exam Vital Signs: Vital Signs: Last Vital Signs Temp 98.1 F 01/28/24 07:46 Pulse 88 01/28/24 07:46 Resp 17 01/28/24 07:46 BP 125/60 01/28/24 07:46 Pulse Ox 94 01/28/24 07:46 O2 Del Method Room Air 01/28/24 07:46 O2 Flow Rate 2 01/27/24 00:00 Oxygen Flow Rate 3.0 01/26/24 11:28 BMI result Body Mass Index 19.0 Extrem: Other: On inspection, dressing is in place, clean, dry, intact No erythema, streaking, evidence of infection noted No saturation of dressing noted Compartments soft, nontender Patient is able to plantar flex and dorsiflex foot without difficulty Distal sensation intact Capillary refill brisk Procedures Date of Service Date of Service: 01/28/24 Progress Note: A&P Assessment and plan (1) Fracture, intertrochanteric, right femur: Status: Acute Plan 1. Intertrochanteric fracture of left hip status post IM nail placement DOS 01/26/2024 Patient appears to be recovering well postoperatively resume anticoag PT wbat Continue with all other recommendations per Medicine Time Spent With Patient Time: Total time managing care of this patient today ____ minutes. Quality Stroke Does the patient have a stroke diagnosis?: No VTE Prior VTE?: No VTE Risk Level:: Medical - moderate - high VTE Device Contraindication: N/A - Device Ordered VTE Drug Contraindication: Treatment Not Indicated
[2024-01-28] MEDS: Metoprolol Tartrate 12.5 MG HALFTAB PO (09:12)
[2024-01-28 09:34] LABS: Hemoglobin 9.1 g/dl (14.0-18.0)
[2024-01-28 10:44] VITALS: BP 125/60; PULSE 88; O2SAT 94
[2024-01-28 11:00] VITALS: O2SAT 94
--- NOTE | 2024-01-28 11:06 | HO.WOUND ---
Wound Consult: Follow up 83yr old?male [place] [facility] [place] - See progress notes and H&P for detailed history.? Wound consult follow up for sacrum and bilateral heels.? Sacrum - improving MASD but remains with adherent central yellow slough - remains unstageable at this time. Etiology: Unstageable Pressure injury ??Present on Admission Wound Bed: adherent yellow slough Drainage / Odor: scant yellow basurto drainage - dry epidermal layers noted on dressing Edges: irregular? Tonja wound: ? MASD Goals of Treatment: Off Load Pressure and protect from moisture and friction with Triad and Foam dressing Right Heel 01/26/24 Right Heel 01/28/24 Etiology: ?DTI ?Present on Admission Wound Bed: dark purple maroon intact nonblanchable tissue - loose epidermal layer noted suspect will unroof Drainage / Odor: None Edges: ? irregular Goals of Treatment: ? Off Load Pressure and foam dressing Left Heel 01/25/24 Left heel 01/28/24 - Resolving DTI Etiology: ?Resolving DTI ?Present on Admission Wound Bed: maroon intact blanchable tissue Drainage / Odor: None Edges: ? irregular Goals of Treatment: ? Off Load Pressure foam dressing applied Recommendations: 1. Turn and Reposition every 2 hours and as needed for patient comfort.? Use pillows or wedges to support off loading positions. 2. Off Load all bony prominences with use of pillows and heel boots if needed.? Apply Preventative foams where needed. ? 3. Monitor for incontinence and moisture control, use barrier creams when needed for prevention and treatment. 4. Provide adequate and supplemental nutrition.? Nutrition following. 5. Continue low air loss mattress. 6. When applicable maintain blood glucose levels per Providers order. 7. Bilateral Heels - Off Load Pressure with pillows or Heel protector boots - Apply foam dressing peel back and assess change every 5 days and PRN. 8. Sacrum - Off Load Pressure? - Cleanse with PH balance spray or wipes, pat dry. ?Apply thin layer of Triad to wound bed. Do not remove all of paste between applications as this may cause further skin damage.? Cover with foam dressing to aid in off loading and protection from friction. Change every 3 days and PRN. Re-consult wound care Nurse for wound deterioration or wound changes.
[2024-01-28 11:08] VITALS: BP 126/67; PULSE 80; RESP 18; TEMP 36.7; O2SAT 94
--- NOTE | 2024-01-28 13:03 | P.F2F_ITS ---
Service Date Service Date: 01/28/24 Reasons for Services Homebound: Leaving the home is medically contraindicated at this time without the asist of a device and/or another person due th the listed conditions above and below. Certification: Based on the above findings, I certify that this patient is confined to the home and needs intermittent group home care, physical therapy and/or speech therapy, or continues to need occupational therapy. The patient is under my care, and I have initiated the establishment of the plan of care. The patient will be followed by a physician who will periodically review the plan of care. Time Spent With Patient Time: Total time managing care of this patient today ____ minutes.
--- NOTE | 2024-01-28 13:21 | MHC.CLN ---
F/U DIET=PUREE WITH NECTAR THICK LIQUIDS. MAGIC CUP SUPPLEMENT TID (870 KCALS, 27 G PROTEIN). INTAKE APPEARS TO BE IMPROVING, WITH RECENT INTAKE 75-100%. SKIN WITH UNSTAGEABLE AREA TO SACRUM AND DTI BILATERAL HEELS. SUPPLEMENT APPROPRIATE TO PROVIDE ADDITIONAL NUTRITION FOR WOUND HEALING. FOLLOW FOR DIET TOLERANCE, INTAKE AND SKIN INTEGRITY.
--- NOTE | 2024-01-28 13:28 | PM.DS ---
DS: Providers Provider Date of Service: 01/28/24 Date of admission: 01/21/24 22:36 Date of discharge: 01/28/24 Primary care physician: Unknown Physician Consults: 01/21/24 20:00 Consult to Orthopedics Routine Consulting Provider: [facility] Reason for consultation: right intertrochanteric fracture 01/22/24 08:33 Consult to Wound Care Routine Reason for consultation: sacral decubitus injury stage 3/4: 01/23/24 07:03 Consult to Cardiology Routine Consulting Provider: [facility] Reason for consultation: new pAF, preop for hip hemiarthoplasty DS: Diagnosis Discharge Diagnosis (1) Fracture, intertrochanteric, right femur: Status: Acute (2) Afib: Status: Acute (3) Aspiration pneumonia: Status: Acute (4) Advanced dementia: Status: Acute (5) Acute blood loss anemia: Status: Acute (6) Acute respiratory failure with hypoxia: Status: Acute (7) Moderate protein-calorie malnutrition: Status: Acute DS: Summary Hospital Course Hospital Course: From the history and physical by the admitting hospitalist, Serenity Quezada, 01/21/24: This is a 83-year-old male with pertinent history of PE on Xarelto, BPH, Alzheimer's dementia was brought to the emergency department family for evaluation of cough and right hip pain. Unable to obtain history from the patient. He is only oriented to self at the time of my evaluation. History obtained with the help of family at bedside using coil rewind machine operator. The states that the patient has been having cough for the last 2-3 days which is getting worse. Does report coughing and choking with food. The gives the patient pureed food. No fever or chills. Also family stated that the patient fell at night 2-3 days ago and he got up at night to use the restroom. The fall was unwitnessed. The patient is on Xarelto for anticoagulation. Patient has been complaining of right hip pain since the fall. Unable to obtain review of systems. In the emergency department, imaging with right intertrochanteric femur fracture. Also imaging with pneumonia and patient requiring supplemental oxygen. 83yo M with Alzheimer dementia, hx PE AC on rivaroxaban, and BPH brought in with cough + R hip pain after multiple falls. Hospital course by problem: acute hypoxic respiratory failure due to aspiration - Weaned off O2; treated with ampicillin-sulbactam started 01/20 and completed 01/27 - REFUSE DRIVER evaluation done: puree solids + nectar liquids R intertrochanteric femur fx, subacute - Cardiology consulted: intermediate to high risk. Orthopedics consulted and IMN done 01/25. Seen by PT but unable to participate due to advanced dementia. Discharged home with 21/12 care by family with support from the [facility] program. new-onset AF - Heart rate noted to be elevated and EKG showed atrial fibrillation which is new for patient. TTE 01/24/24: 1. Normal LV ejection fraction of 55-60% 2. Moderately dilated left atrium 3. Normal cardiac valvular Doppler 4. Small pericardial effusion more prominent near the left ventricle - Cardiology consultation appreciated, started on metoprolol tartrate for rate control with good tolerance. Resumed rivaroxaban postoperatively., which hew as already on for history of PE. acute blood loss anemia - Due to fracture; transfused 1u pRBCs 01/24 with appropriate response in H+H; stable postoperatively. moderate protein-calorie malnutrition - Provided supplements. moisture-associated skin damage of sacraum, present on admission, unstageable deep tissue injury of right heel, present on admission resolving deep tissue injury of left heel, present on admission - per Wound Care consultation: 1. Turn and Reposition every 2 hours and as needed for patient comfort.? Use pillows or wedges to support off loading positions. 2. Off Load all bony prominences with use of pillows and heel boots if needed.? Apply Preventative foams where needed. ? 3. Monitor for incontinence and moisture control, use barrier creams when needed for prevention and treatment. 4. Provide adequate and supplemental nutrition.? Nutrition following. 5. Continue low air loss mattress. 6. When applicable maintain blood glucose levels per Providers order. 7. Bilateral Heels - Off Load Pressure with pillows or Heel protector boots - Apply foam dressing peel back and assess change every 5 days and PRN. 8. Sacrum - Off Load Pressure? - Cleanse with PH balance spray or wipes, pat dry. ?Apply thin layer of Triad to wound bed. Do not remove all of paste between applications as this may cause further skin damage.? Cover with foam dressing to aid in off loading and protection from friction. Change every 3 days and PRN. Time Attestation Discharge Coordination Time (in mins): 45 Quality: Safe Use of Opioids Does Pt have an Active Cancer Diagnosis on the Problem List?: No Quality: Stroke Does the patient have a stroke diagnosis?: No Physical Exam Vital Signs: Vital Signs: Last Vital Signs Temp 98.1 F 01/28/24 11:08 Pulse 80 01/28/24 11:08 Resp 18 01/28/24 11:08 BP 126/67 01/28/24 11:08 Pulse Ox 94 01/28/24 11:08 O2 Del Method Room Air 01/28/24 11:08 O2 Flow Rate 2 01/27/24 00:00 Oxygen Flow Rate 3.0 01/26/24 11:28 BMI result Body Mass Index 19.0 Gen: in no acute distress HEENT: sclera anicteric, moist mucus membranes Neck: supple Lungs: clear to auscultation bilaterally Heart: irregular, no murmurs Abd: soft, non-tender, non-distended Ext: no edema, RLE with hip incisions with dry dressings Skin: warm/well-perfused Neuro: alert, unable to assess orientation, moves all extremities Psych: impaired insight DS: Data Data Completed and Pending Completed studies during hospitalization [Text1]: Laboratory Results WBC 9.1 X10*3/uL (4.8-10.8) 01/27/24 06:46 RBC 3.20 X10*6/uL (4.60-5.80) L 01/27/24 06:46 Hgb 9.1 g/dl (14.0-18.0) L 01/28/24 09:00 Hct 28.0 % (42.0-52.0) L 01/28/24 09:00 MCV 89.4 fL (80.0-98.0) 01/27/24 06:46 MCH 29.7 pg (27.0-33.0) 01/27/24 06:46 MCHC 33.2 g/dl (31.0-36.0) 01/27/24 06:46 RDW 14.4 % (11.0-16.0) 01/27/24 06:46 Plt Count 330 X10*3/uL (160-400) 01/27/24 06:46 MPV 10.4 fL (9.4-12.4) 01/27/24 06:46 Immature Gran % (Auto) 2.4 % (0.0-0.4) H 01/22/24 09:37 Neut % (Auto) 86.6 % (45-73) H 01/22/24 09:37 Lymph % (Auto) 5.3 % (20-40) L 01/22/24 09:37 [place] % (Auto) 4.8 % (2-11) 01/22/24 09:37 Eos % (Auto) 0.6 % (0-4) 01/22/24 09:37 Baso % (Auto) 0.3 % (0-2) 01/22/24 09:37 Lymph # (Auto) 0.8 X10*3/uL (1.2-4.9) L 01/22/24 09:37 [place] # (Auto) 0.8 X10*3/uL (0.1-1.2) 01/22/24 09:37 Eos # (Auto) 0.1 X10*3/uL (0.0-0.4) 01/22/24 09:37 Baso # (Auto) 0.1 X10*3/uL (0.0-0.2) 01/22/24 09:37 Abs Immat Gran (auto) 0.39 X10*3/uL (0.00-0.03) H 01/22/24 09:37 Absolute Neuts (auto) 13.8 x10*3/uL (2.0-8.3) H 01/22/24 09:37 Absolute Nucleated RBC 0.000 X10*3/uL (0.0-0.012) 01/27/24 06:46 Nucleated RBC % (auto) 0.0 /100WBC (0.0-0.2) 01/27/24 06:46 PT 16.0 SEC (11.1-13.3) H D 01/21/24 15:04 INR 1.3 (0.9-1.1) H 01/21/24 15:04 Sodium 138 mmol/L (135-145) 01/27/24 06:46 Potassium 4.1 mmol/L (3.3-5.1) 01/27/24 06:46 Chloride 105 mmol/L (96-108) 01/27/24 06:46 Carbon Dioxide 26 mmol/L (22-29) 01/27/24 06:46 Anion Gap 11 (12-20) L 01/27/24 06:46 BUN 15 mg/dL (9-16) 01/27/24 06:46 Creatinine 0.55 mg/dL (0.5-1.4) 01/27/24 06:46 Estim Creat Clear Calc 76.8 01/27/24 06:46 Estimated GFR > 60 01/27/24 06:46 Random Glucose 94 mg/dL (60-115) 01/27/24 06:46 Lactic Acid 2.2 mmol/L (0.5-2.0) H* 01/22/24 19:02 Lactic Acid F/U @ 2Hr 1.1 mmol/L (0.5-2.0) 01/22/24 21:56 Calcium 8.2 mg/dL (8.4-10.2) L 01/27/24 06:46 Magnesium 2.0 mg/dL (1.6-2.6) 01/27/24 06:46 Total Bilirubin 1.0 mg/dL (0.0-1.0) 01/21/24 15:04 Direct Bilirubin 0.4 mg/dL (0.0-0.5) 01/21/24 15:04 AST 43 U/L (5-37) H 01/21/24 15:04 ALT 35 U/L (0-40) 01/21/24 15:04 Alkaline Phosphatase 116 U/L (39-117) 01/21/24 15:04 Troponin I High Sens 34.7 ng/L (<3.5-35.0) D 01/22/24 09:37 Total Protein 6.0 g/dL (6.5-8.0) L 01/21/24 15:04 Albumin 2.4 g/dL (3.5-5.0) L 01/21/24 15:04 Lipase 24 U/L (8-78) 01/21/24 15:04 Procalcitonin 0.07 ng/mL 01/24/24 06:17 Urine Color Dark Yellow 01/21/24 15:59 Urine Appearance Cloudy 01/21/24 15:59 Urine pH 5.5 (5.0-9.0) 01/21/24 15:59 Ur Specific [place] >= 1.030 (1.005-1.025) H 01/21/24 15:59 Urine Protein Trace mg/dL (Neg-Trace) 01/21/24 15:59 Urine Glucose (UA) Negative mg/dL (Negative) 01/21/24 15:59 Urine Ketones Trace mg/dL (Negative) 01/21/24 15:59 Urine Blood Negative (Negative) 01/21/24 15:59 Urine Nitrite Positive (Negative) H 01/21/24 15:59 Ur Leukocyte Esterase Trace (Negative) H 01/21/24 15:59 Urine RBC 0-2 /HPF (0-2) 01/21/24 15:59 Urine WBC 0-5 /HPF (0-5) 01/21/24 15:59 Ur Squamous Epith Cells 3-5 /HPF (0-2) 01/21/24 15:59 Urine Bacteria None Seen (None Seen) 01/21/24 15:59 Hyaline Casts 0-2 /LPF (0-2) 01/21/24 15:59 Stool Occult Blood NEGATIVE (NEGATIVE) 01/21/24 16:44 COVID-19 (CATE) Negative (Negative) 01/21/24 15:04 COVID-19 Clin Com See Note 01/21/24 15:04 Blood Type A Positive 01/25/24 14:18 Antibody Screen NEGATIVE 01/25/24 14:18 Crossmatch See Detail 01/25/24 14:18 Impressions Chest X-Ray 01/21/24 14:09 IMPRESSION: 1. Findings suggestive of left upper lung pneumonia. 2. Hazy interstitial prominence suggesting mild fluid overload/CHF. 3. Left effusion suspected. Electronically signed by: Ramos Pitts MD 01/21/2024 03:32 PM EDT RP Knee X-Ray 01/21/24 14:13 IMPRESSION: 1. No acute bony abnormalities identified right knee. 2. Small joint effusion. 3. 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 4. Vascular calcifications. Electronically signed by: Ramos Ptits MD 01/21/2024 03:26 PM EDT RP KUB X-Ray 01/21/24 14:14 IMPRESSION: 1. Moderate constipation, otherwise nonspecific bowel gas pattern. No obstruction. 2. Abnormal appearance of the right ureter trochanter, also abnormal in location as discussed above. Recommend dedicated right hip films. Suspect a fracture with a possible underlying lytic process affecting the right greater trochanter and intertrochanteric region. 3. Vascular calcifications. Findings discussed with Cinthya Cisneros at 3:40 PM, 01/21/2024 Electronically signed by: Ramos Pitts MD 01/21/2024 03:42 PM EDT RP Hip/Pelvis X-Ray 01/21/24 15:43 IMPRESSION: Right femoral intertrochanteric fracture with mild proximal retraction. Electronically signed by: Sarai Farias MD 01/21/2024 05:03 PM EDT RP Head CT 01/21/24 20:14 IMPRESSION: 1. No acute intracranial hemorrhage or territorial infarction. 2. Global cerebral atrophy and chronic microangiopathy. Electronically signed by: Gunnar Ma MD 01/21/2024 09:40 PM EDT RP Guidance Fluoroscopy 01/26/24 09:30 IMPRESSION: Fluoroscopy and spot films provided during intramedullary femoral rosa and screw placement. Electronically signed by: Devan Shoemaker MD 01/26/2024 07:45 PM EDT RP Discharge Plan Discharge Anticipated Discharge Date/Time: 01/28/24 13:24 Patient Disposition: Home Health Service Discharge Diagnosis: Status post right IM nail Referrals: Ciro Joseph PA [Physician Animal Park Code Enforcement Officer] - 2 Weeks (02/08/24 08:30 [facility] Kaur Walker PA-C) Discharge Medications: New metoprolol tartrate 25 mg tablet 12.5 mg PO BID Qty: 30 0RF oxycodone 5 mg Tablet 5 mg PO Q4H PRN (Reason: Pain, Severe (Pain Scale 7-10)) Qty: 18 0RF Rx Instructions: Partial Fill upon patient request. Continued multivitamin Tablet 1 tab PO DAILY acetaminophen 500 mg Tablet 500 mg PO DAILY PRN (Reason: Pain) tamsulosin 0.4 mg Capsule 0.4 mg PO DAILY Xarelto 20 mg Tablet 20 mg PO DAILY@1700 Rx Instructions: must administer with evening meal Discharge Orders: Discharge Order (Routine); Ordered 01/28/24 Ordered By: Alfredo Anglin Diet: PUREE solids, NECTAR liqu Activity on Discharge: As tolerated Stand Alone Forms: Patient Portal Discharge page Print Language: Frisian Activity Restrictions/Additional Instructions: The patient underwent a successful ORIF of right hip with intramedullary nail on 01/26/2024, was transferred to PACU and then to the floor to recover. During their stay, their vitals were stable, afebrile at 98.4 . Labs were unremarkable, H/H 9.5/28.6. POD 1 he resumed on rivaroxaban 20 mg a day for DVT ppx per Medicine, they also received Physical Therapy services twice a day. Physical therapy should include gait training, core and lumbar strength, glute strength. Posterior precautions intact. WBAT. Prior to discharge, his dressing was changed, incision clean dry and intact, new dressings applied. Dressing should remain intact and dry at all times. Any concerns with the dressing, please contact orthopedic office. No showering. Patient should follow-up in 2 weeks with our office for postoperative evaluation The plan is to be discharged Care Plan Goals: recovery from hip fracture home care Health Concerns: hip fracture atrial fibrillation aspiration pneumonia Plan of Treatment: Gait training, strengthening, ADLs Continue anticoagulation with XARELTO Keep dressing clean, dry, intact, no showering or tub baths Follow up with Orthopedics in 2 weeks for atrial fibrillation, take metoprolol tartrate 12.5 mg twice daily; continue Xarelto 20 mg daily which was already being taken for prior PE diet: 1:1, puree solids, nectar liquids take supplements for malnutrition Please follow up with your primary care doctor within 1 week. Return to the hospital if you experience recurrent or worsening symptoms. per Wound Care consultation: 1. Turn and Reposition every 2 hours and as needed for patient comfort.? Use pillows or wedges to support off loading positions. 2. Off Load all bony prominences with use of pillows and heel boots if needed.? Apply Preventative foams where needed. ? 3. Monitor for incontinence and moisture control, use barrier creams when needed for prevention and treatment. 4. Provide adequate and supplemental nutrition.? Nutrition following. 5. Continue low air loss mattress. 6. When applicable maintain blood glucose levels per Providers order. 7. Bilateral Heels - Off Load Pressure with pillows or Heel protector boots - Apply foam dressing peel back and assess change every 5 days and PRN. 8. Sacrum - Off Load Pressure? - Cleanse with PH balance spray or wipes, pat dry. ?Apply thin layer of Triad to wound bed. Do not remove all of paste between applications as this may cause further skin damage.? Cover with foam dressing to aid in off loading and protection from friction. Change every 3 days and PRN. Assessment: See Discharge Summary.
--- NOTE | 2024-01-28 13:56 | MHC.CM.PN ---
Addendum entered by Shaina Palafox 01/28/24 14:03: CM ATTEMPTED TO CALL PTS DAUGHTER/PRIMARY CONTACT, KEVIN [phone], PHONE WAS OOS CM CALLED PTS , STEW[facility] [phone] WITH A WOODS SUPERINTENDENT [facility]ART WAS INFORMED OF THE PENDING DC SHE CONFIRMED PT NEEDS BLS TRANSPORT TRANSPORT BOOKED WITH [facility] FOR 1600 HOURS Original Note: JAVIER CALLED [facility] [phone] T [facility] SHE CONFIRMS THEY NEED THE PTS DCS AND SCRIPTS, SHE SAYS THE PTS PCP NEEDS TO COSIGN THE SCRIPTS SO THAT THE INSURANCE WILL COVER THEM DCS AND SCRIPTS FAXED TO [facility] AT [phone]
[2024-01-28 15:36] VITALS: BP 112/56; PULSE 88; RESP 16; TEMP 36.4; O2SAT 93
--- NOTE | 2024-01-28 15:53 | MHC.SL.SWA ---
Speech Pathologist Impression: Risk of Aspiration Due to: History of Pneumonia Reduced Cognition Dysphasia Diet Status: Recommend continue on Puree (NDD1), Kiana Thick pills crushed in puree. Patient noted to tolerate liquids by tsp and controlled straw sip. Liquid Consistency and Strategies for Safe Swallow: Liquid Intake Recommendation: Kiana Thick Liquid Intake Strategies: Small Sips Solid Food Consistency: Dietary Recommendations: Pureed (NDD1) Additional Modifications to Oral Medication Intake: Crushed with Puree Please contact the pharmacy regarding appropriate crushable or liquid drug formulations that are available whenever modified delivery is recommended. Compensatory Strategies and Precautions to be Taken for Safe Swallow: Sitting Upright (90 deg) Liquids from Spoon Small Bites and Sips Alternate Liquids/Solids Rate of Ingestion Change Supervision While Eating and Drinking for Safe Swallow: Total Assistance (1:1) Foods to Avoid: Mixed consistencies Swallowing Recommended Treatments: Compens. Strategy Educat. Recommendation for Speech: Inpatient Speech Therapy Comment: Patient seen at lunch with feeding him. Per RN, patient had been difficult to feed this morning, shutting mouth to presentations of food. believed issue was cuing patient, and language difference. noted to strongly cue patient to open mouth, give frequent reminders not to grab at plate ( stated when he gets plate, he attempts to eat directly from it), and continued throughout meal to verbally orient her . was remarkably persistent, consistent and patient with feeding, providing food and liquids at a good rate, keeping bright, positive affect with her . Patient was noted to be more awake and alert and more animated today, however very confused/disoriented but responding well to . Patient took NT liquids by spoon with no difficulty noted. Recommend continue on current diet of Puree (NDD1) with NECTAR THICK liquids, pills crushed in puree. Plan is for patient to be D/C'd to home. Family would benefit from access to thickener for liquids, as NT likely to be d/c consistency, if this can be arranged through home care service/pharmacy. Frequency/Duration: PRN M-F Date Range for Service Req: Timeline to reassess: Welder [employer] Clinican/Clinical Fellow: No Supervisory Statement: I have reviewed and agree with the student/clinical fellow's documentation: N/A Speech Language Pathologist: Eileen Emanuel M.A., CCC-COMMUNICATIONS CONSULTANT
--- NOTE | 2024-02-08 07:47 | P.CDIM_ITS ---
PROVIDER RESPONSE TEXT: To clarify, the appropriate diagnosis supported by the clinical indicators: Moderate QUERY TEXT: PHYSICIAN'S DOCUMENTATION REQUEST Date of Query: 01/27/2024 09:01 AM EDT Patient Name: Vahid Palma Admit Date: 01/22/2024 Dear Alrfedo Anglin MD, A review of the medical record indicates additional documentation may be needed. Please review below and update the documentation accordingly. Documentation includes the diagnosis of malnutrition. Additional clinical indicators from the record include: Per Clinical Nutrition Assessment 01/24/24: qualifies as moderately malnourished in the context of chronic illness, body fat mild depletion orbit al, muscle mass mild depletion clavicle If possible, please provide additional specificity regarding the severity of the malnutrition using t he above information: Mild Moderate Severe Other (explain) Clinically unable to determine (explain) Thank you, Sophia Dorado RN Use of terms such as suspected, likely, concern for, or probable (associated with a specific diagnosi s that is being evaluated, monitored, or treated as if it exists) are acceptable and can be coded in the inpatient se tting, when documented at the time of discharge. Please use your independent medical judgment in providing your response. THIS QUERY IS PART OF THE PERMANENT MEDICAL RECORD
--- NOTE | 2024-02-22 07:39 | W.PM.OPN ---
Operative Note Operative Note Date of Service: 01/26/24 Narrative: Date of Service: 01/26/24 Pre-op diagnosis: Right IT fx Post-op diagnosis: same Procedure: IMN right hip Implants: Maryann [id number] 125 deg imn with 95mm hip screw and 35mm distal interlock Surgeon: Will Elise MD Anesthesia: GLMA and local Was an Archeology Professor used for this Procedure?: No Estimated blood loss (mL): 150 IV fluids (mL): 800 Pathology: none sent Condition: stable Disposition: PACU Procedure in detail: Patient was brought to the operating room and prepped and draped in standard sterile fashion. Time-out was called to identify proper site procedure proper surgeon and IV antibiotics per weight were administered. She was positioned on the fracture table and a traction and slight internal rotation were performed and biplanar fluoroscopy confirmed initial fracture reduction. I then made a stab incision proximal to the greater trochanter in using a guidewire made a entry point just lateral to the tip of the greater trochanter and placed a guidewire into the femoral metadiaphysis. I then over-reamed with 15 mm Reamer placed my ball-tip guidewire down distally in the femur and measured my length. I selected a [id number] 125 deg IM nail and reamed up to a 13. I then inserted the nail. I turned my attention to the hip screw where I used a guidewire and a tip apex distance of less than 1.5 measured a 95mm hip screw. I then pre drilled and placed a hip screw using biplanar fluoroscopy. Once I was satisfied with the position of the hip screw I turned my attention to the distal aspect of the nail. Using the static hold of the guide I placed my distal interlocking screw using standard AO technique. I then removed all unnecessary instrumentation and placed the set screw proximally and removed the insertion handle. Final biplanar radiographs were taken. I was satisfied with the position of the hardware and the fracture reduction. I think copiously irrigated closed with absorbable sutures jesse and injected 30 mL of into the area of the incisions. Traction was let down patient was placed in sterile dressing awakened from anesthesia brought to recovery room stable condition there were no known complications.
== END 2024-01-28 16:33 | disposition home health service (06) | DRG 480 ==
LOC: HO.ED 21:16 → HO.EDOVER 22:42 → HO.S3 01-22 16:24
PROVIDERS: Family Medicine; Orthopaedic Surgery; Admitting Provider Student in an Organized Health Care Education/Training Program; Emergency Provider Emergency Medicine; Visit Provider Family Medicine
PROC: 0QS636Z Reposition Right Upper Femur with Intramedullary Internal Fixation Device, Percutaneous Approach (ICD-10-PCS; principal; 2024-01-26 09:40)
DX: S72.141A Displaced intertrochanteric fracture of right femur, initial encounter for closed fracture (principal); J69.0 Pneumonitis due to inhalation of food and vomit; J96.01 Acute respiratory failure with hypoxia; N39.0 Urinary tract infection, site not specified; D62 Acute posthemorrhagic anemia; E44.0 Moderate protein-calorie malnutrition; Z68.1 Body mass index [BMI] 19.9 or less, adult; I48.91 Unspecified atrial fibrillation; W19.XXXA Unspecified fall, initial encounter; G30.9 Alzheimer's disease, unspecified; Z66 Do not resuscitate; N40.0 Benign prostatic hyperplasia without lower urinary tract symptoms; F02.80 Dementia in other diseases classified elsewhere, unspecified severity, without behavioral disturbance, psychotic disturbance, mood disturbance, and anxiety; Z20.822 Contact with and (suspected) exposure to COVID-19; Z86.711 Personal history of pulmonary embolism; Z79.01 Long term (current) use of anticoagulants; Z79.899 Other long term (current) drug therapy
CPT/HCPCS: 36415; 70450; 71045; 73502; 73560; 74018; 80048; 80076; 81001; 82272; 83605; 83690; 83735; 84145; 84484; 85014; 85018; 85025; 85027; 85610; 86850; 86900; 86901; 86923; 87040; 87086; 87635; 92526; 92610; 93005; 93306; 97163; 97167; 97530; 99285; C1713; C1758; J0295; J0456; J0690; J0696; J1100; J1650; J2270; J2405; J2704; J2795; J3010; P9016

== ENCOUNTER → 2024-01-21 13:49 | Outpatient (BNV) | payer MEDICARE, MEDICAID, SELFPAY | PROVIDERS: Emergency Provider Emergency Medicine; Visit Provider Radiology Diagnostic Radiology | DX: R05.9 Cough, unspecified (principal) | CPT/HCPCS: 71045; 73560 ==

== ENCOUNTER → 2024-01-21 14:04 | Outpatient (BNV) | payer MEDICARE, MEDICAID, SELFPAY | PROVIDERS: Emergency Provider Emergency Medicine; Visit Provider Student in an Organized Health Care Education/Training Program | DX: S72.141A Displaced intertrochanteric fracture of right femur, initial encounter for closed fracture (principal); I48.91 Unspecified atrial fibrillation; J69.0 Pneumonitis due to inhalation of food and vomit; F03.C0 Unspecified dementia, severe, without behavioral disturbance, psychotic disturbance, mood disturbance, and anxiety; D62 Acute posthemorrhagic anemia; J96.01 Acute respiratory failure with hypoxia; E44.0 Moderate protein-calorie malnutrition | CPT/HCPCS: 99223; 99232; 99233; 99239 ==

== ENCOUNTER 2024-01-21 22:36 | Outpatient (BNV) | payer MEDICARE, SELFPAY | END 2024-01-24 07:05 | PROVIDERS: Admitting Provider Student in an Organized Health Care Education/Training Program; Emergency Provider Emergency Medicine; Visit Provider Internal Medicine Cardiovascular Disease | DX: I35.8 Other nonrheumatic aortic valve disorders (principal); I34.81 Nonrheumatic mitral (valve) annulus calcification | CPT/HCPCS: 93306 ==

== ENCOUNTER → 2024-01-21 22:36 | Outpatient (BNV) | payer MEDICARE, MEDICAID, SELFPAY | PROVIDERS: Admitting Provider Student in an Organized Health Care Education/Training Program; Emergency Provider Emergency Medicine; Visit Provider Internal Medicine Cardiovascular Disease | DX: I48.91 Unspecified atrial fibrillation (principal) | CPT/HCPCS: 99223; 99233 ==

== ENCOUNTER → 2024-01-21 22:36 | Outpatient (BNV) | payer MEDICARE, MEDICAID, SELFPAY | PROVIDERS: Admitting Provider Student in an Organized Health Care Education/Training Program; Emergency Provider Emergency Medicine; Visit Provider Physician Assistant | DX: S72.141A Displaced intertrochanteric fracture of right femur, initial encounter for closed fracture (principal) | CPT/HCPCS: 27245; 99024; 99222; 99499 ==

== ENCOUNTER 2024-02-08 12:30 | Outpatient (AMB) | payer MEDICARE, SELFPAY ==
--- NOTE | 2024-02-08 12:33 | MHC.OFFVIS ---
Intake Visit Reasons: PO - Right hip IMN 01/26/24 NE Intake Note: Vahid is a 83 year old male who presents today for a post op appointment s/p Right hip IMN 01/26/24 NE. Patient reports he is having pain on the incision site. Allergies No Known Allergies Allergy (Verified 02/08/24 12:36) HPI HPI PO - Right hip IMN 01/26/24 NE: Details: 83-year-old male who presents in the office today 13 days status post right hip IM nailing, which was performed on 01/26/[address] Elise. ? ? While in the office today, the patient reports having pain at the incision site. ? The patient presents in the office today on a stretcher via EMS for his appointment. He does not have any family members present in the office today and the patient is nonverbal. Therefore, no one was present to provide any feedback in regard to his post operative care or pain. ? [facility], [facility] Medical History Anticoagulated Dementia Social History Household Members: Unknown / Unable to assess Housing: Unknown / Unable to assess Do you presently have visiting nurse or other home services: No Alcohol intake: former Patient Tobacco Use Status: Tobacco use Unknown service: No Review of Systems Const All systems reviewed & are unremarkable except as noted in HPI and below Physical Exam Const General: cooperative, healthy appearing and no acute distress Resp Effort & Inspection: normal respiratory effort and able to speak in complete sentences Cardio Rate: regular rate Peripheral pulses: Peripheral pulses 2+ throughout GI Palpation (GI): Soft to palpation Skin Lesions: no lesions Rashes: no rashes Extrem Other: Right hip: Incision site is clean, dry, and intact. Hardy are intact. No surrounding erythema or drainage. No signs of infection. Pain with hip flexion and extension. NVI. Assessment & Plan Assessment & Plan (1) Fracture, intertrochanteric, right femur: Code(s): S72.141A - Displaced intertrochanteric fracture of right femur, initial encounter for closed fracture Category: Medical Plan Mr. Emery Pascual is an 83-year-old male who presents in the office today 13 days status post right hip IM nailing, which was performed on 01/26/[address] Elsie. ? ? While in the office today, the patient reports having pain at the incision site.? The patient presents in the office today on a stretcher via EMS for his appointment. He does not have any family members present in the office today and the patient is nonverbal. Therefore, no one was present to provide any feedback in regard to his post operative care or pain. ? ? [place] were removed and steri-stripes were applied. The patient may weight bear as tolerated with a walker. I would like physical therapy to work on glute, core, and quad strengthening, as well as gait training with a walker. ? ? While the plastic block boiler reliner from the transport service were in the office today I asked them about the patient?s living conditions. They reported that he is cared for by his who is very receptive to the patient?s needs. However, is Slovak speaking and there was a significant language barrier in obtaining any history prior to departure. The patient was found in his bedroom well-kept and the area was clean and tidy. It is unclear if the patient is receiving any PT at home, therefore, I have called and left a message for his , Cinthya, to call me back to further discuss physical therapy and if the patient has access to all home care that he needed.? ? Follow-up will be in six weeks with repeat x-rays, or sooner if needed. ? Orders: Orders XR femur RT 2V Today S72.142A - Displaced intertrochanteric fracture of left femur, initial encounter for closed fracture XR pelvis 1-2V Today M25.559 - Pain in unspecified hip Patient Instructions: Scribed by Monik Lopez medical parasitologist, for Kaur Walker PA-C on 02/08/2024 at 1:00 pm, EST.? Coding Level of Care Code Global (98357) Diagnoses Fracture, intertrochanteric, right femur S72.141A
== END 2024-02-08 13:04 | disposition home or self-care (01) ==
PROVIDERS: Visit Provider Physician Assistant
DX: S72.141A Displaced intertrochanteric fracture of right femur, initial encounter for closed fracture (principal)
CPT/HCPCS: 99024

== ENCOUNTER → 2024-02-08 12:30 | Outpatient (BNVA) | payer MEDICARE, SELFPAY | PROVIDERS: Visit Provider Physician Assistant | DX: S72.141A Displaced intertrochanteric fracture of right femur, initial encounter for closed fracture (principal); T84.84XA Pain due to internal orthopedic prosthetic devices, implants and grafts, initial encounter; Y79.3 Surgical instruments, materials and orthopedic devices (including sutures) associated with adverse incidents; X58.XXXA Exposure to other specified factors, initial encounter; Y93.9 Activity, unspecified; Y92.009 Unspecified place in unspecified non-institutional (private) residence as the place of occurrence of the external cause; Y99.9 Unspecified external cause status | CPT/HCPCS: 99212 ==

== ENCOUNTER 2024-03-21 09:33 | Outpatient (REF) | payer MEDICARE, SELFPAY | END 2024-03-21 09:34 | disposition home or self-care (01) | LOC: HO.HOSX 09:33 | PROVIDERS: Visit Provider Physician Assistant | DX: S72.141D Displaced intertrochanteric fracture of right femur, subsequent encounter for closed fracture with routine healing (principal); Z98.890 Other specified postprocedural states | CPT/HCPCS: 73552; 99212 ==

== ENCOUNTER 2024-03-21 12:24 | Outpatient (AMB) | payer MEDICARE, SELFPAY ==
--- NOTE | 2024-03-21 12:40 | MHC.OFFVIS ---
Intake Visit Reasons: PO - Right hip IMN 01/26/24 NE Intake Note: Vahid is a 83 year old male who presents to the office today for a PO Right hip IMN 01/26/24 NE. Patient reports he is doing well, however he has complaints of right hip pain. He continues attending PT with slight improvement. Allergies No Known Allergies Allergy (Verified 03/21/24 12:45) PFSH Medical History Anticoagulated Dementia Social History Household Members: Unknown / Unable to assess Housing: Unknown / Unable to assess Do you presently have visiting nurse or other home services: No Alcohol intake: former Patient Tobacco Use Status: Tobacco use Unknown service: No Review of Systems Const All systems reviewed & are unremarkable except as noted in HPI and below Physical Exam Const General: cooperative, healthy appearing and no acute distress Resp Effort & Inspection: normal respiratory effort and able to speak in complete sentences Cardio Rate: regular rate Peripheral pulses: Peripheral pulses 2+ throughout GI Palpation (GI): Soft to palpation Skin Lesions: no lesions Rashes: no rashes Assessment & Plan Assessment & Plan (1) Fracture, intertrochanteric, right femur: Code(s): S72.141A - Displaced intertrochanteric fracture of right femur, initial encounter for closed fracture Category: Medical Orders: Orders XR femur RT 2V Today S72.141A - Displaced intertrochanteric fracture of right femur, initial encounter for closed fracture Patient Instructions: Scribed by Paz Pearson medical receptionist assistant, for Kaur Walker PA-C on 03/21/24 at 12:55 pm EST. Coding Diagnoses Fracture, intertrochanteric, right femur S72.141A
--- NOTE | 2024-03-21 13:22 | A.OFFVIS_ITS ---
Intake Visit Reasons: PO - Right hip IMN 01/26/24 NE Intake Note: 83-year-old male who presents in the office today 12 weeks status post right hip IM nailing, which was performed on 01/26/[address] Elise. I last saw the patient in the office on 02/08/24 when was recommended physical therapy to work on glute, core, and quad strengthening, as well as gait training with a walker. Allergies No Known Allergies Allergy (Verified 03/21/24 12:45) HPI HPI PO - Right hip IMN 01/26/24 NE: Details: 83-year-old male who presents in the office today 12 weeks status post right hip IM nailing, which was performed on 01/26/[address] Elise. I last saw the patient in the office on 02/08/24 when was recommended physical therapy to work on glute, core, and quad strengthening, as well as gait training with a walker. While in the office today, the patient is doing well; however, he complains of right hip pain. He has completed physical therapy with slight improvement and got discharged on 03/01/24. [facility] Medical History Anticoagulated Dementia Social History Household Members: Unknown / Unable to assess Housing: Unknown / Unable to assess Do you presently have visiting nurse or other home services: No Alcohol intake: former Patient Tobacco Use Status: Tobacco use Unknown service: No Review of Systems Const All systems reviewed & are unremarkable except as noted in HPI and below and Unobtainable due to mental status Physical Exam Const General: cooperative, healthy appearing and no acute distress Resp Effort & Inspection: normal respiratory effort and able to speak in complete sentences Cardio Rate: regular rate Peripheral pulses: Peripheral pulses 2+ throughout GI Palpation (GI): Soft to palpation Skin Lesions: no lesions Rashes: no rashes Extrem Other: Right hip: No signs of infection. Able to passively perform leg extension. Able to perform internal and external rotation. No apparent distress. He is unable to engage in activities. Assessment & Plan Assessment & Plan (1) Fracture, intertrochanteric, right femur: Code(s): S72.141A - Displaced intertrochanteric fracture of right femur, initial encounter for closed fracture Category: Medical Plan 83-year-old male who presents in the office today 12 weeks status post right hip IM nailing, which was performed on 01/26/[address] Elise. I last saw the patient in the office on 02/08/24 when was recommended physical therapy to work on glute, core, and quad strengthening, as well as gait training with a walker. While in the office today, the patient is doing well; however, he complains of right hip pain. He has completed physical therapy with slight improvement and got discharged on 03/01/24. Unfortunately, his family members did not attend the appointment with him today. While the EMT?s from the transport service brought the patient to the office today. The EMT?s reported that he was having difficulty navigating onto the stretcher. He was indicating that he had right hip pain; however, due to his mental status, he cannot identify the exact location of the pain. During his exam, he did not show any distress with ROM exercises of the right hip. The EMT?s also reported the patient was demonstrating a severe congested cough, and they were concerned for chest congestion. I did contact [facility], the patient?s primary care group, and I was able to speak with one of the nurses there. She informed me that the patient was recently seen on 03/11/24 for chest congestion and was placed on antibiotics. He has a daily visiting nurse to see him and also has a wound care nurse who attends him weekly. He was receiving physical therapy services at home; however, he was discharged on 03/01/24 after meeting his maximum medical improvement. Since the patient has been discharged from physical therapy and is receiving services at home, there is no additional orthopedic care needed. Follow-up will be PRN, or sooner if needed. X-rays of the right hip, which were obtained while in the office today and were reviewed by me, Kaur Walker PA-C, revealed: Intact orthopedic hardware with routine healing. Orders: Orders XR femur RT 2V Today S72.141A - Displaced intertrochanteric fracture of right femur, initial encounter for closed fracture Patient Instructions: Scribed by Paz Pearson medical billing associate, for Kaur Walker PA-C on 03/21/24 at 12:55 pm EST. Coding Level of Care Code Global (70390) Diagnoses Fracture, intertrochanteric, right femur S72.141A
== END 2024-03-21 13:01 | disposition home or self-care (01) ==
PROVIDERS: Visit Provider Physician Assistant
DX: S72.141A Displaced intertrochanteric fracture of right femur, initial encounter for closed fracture (principal)
CPT/HCPCS: 99024